=== PATIENT | male | born 1970 | race Caucasian/White ===

== ENCOUNTER 2020-08-16 10:05 | Outpatient (REF) | payer OTHER, SELFPAY | END 2020-08-16 10:06 | disposition home or self-care (01) | LOC: HO.LAB 10:05 | PROVIDERS: Visit Provider Internal Medicine | DX: Z20.822 Contact with and (suspected) exposure to COVID-19 (principal) | CPT/HCPCS: 36415; C9803; U0003; U0005 ==

== ENCOUNTER 2020-08-18 08:43 | Outpatient (REF) | payer OTHER, SELFPAY | END 2020-08-18 08:44 | disposition home or self-care (01) | LOC: HO.LAB 08:43 | PROVIDERS: Visit Provider Internal Medicine | DX: Z20.822 Contact with and (suspected) exposure to COVID-19 (principal) | CPT/HCPCS: 36415; C9803; U0003; U0005 ==

== ENCOUNTER 2022-07-28 09:00 | Inpatient (IN) | payer OTHER, SELFPAY ==
[2022-07-28] VITALS (7 sets, daily range): BP systolic 135–167; BP diastolic 65–89; PULSE 65–89; RESP 18–22; TEMP 36.2–37.2; O2SAT 96–100; BMI 32.6
--- NOTE | ~2022-07-28 | US_ITS ---
EXAMINATION: US SCROTUM CLINICAL INFORMATION: Right testicular pain. Rule out torsion.. COMPARISON: None TECHNIQUE: A sonogram of the scrotum was performed assessing noel-scale appearance and color Doppler flow. Spectral Doppler analysis of the arterial and venous flow were performed in the testes bilaterally. FINDINGS: RIGHT: Right testicle measures 5.0 x 2.4 x 3.2 cm, volume 19.4 mL. No focal testicular parenchymal lesions are visualized. Spectral Doppler analysis of the arterial and venous flow is normal in the right testis. Right epididymal head is normal in size. No right hydrocele or varicocele is seen. Right epididymal Doppler flow is normal. LEFT: Left testicle measures 4.8 x 2.4 x 2.9 cm, volume 17.2 mL. No focal testicular parenchymal lesions are visualized. Spectral Doppler analysis of the arterial and venous flow is normal in the left testis. Left epididymal head is normal in size. No left hydrocele or varicocele is seen. Left epididymal Doppler flow is normal. US/US scrotum doppler IMPRESSION: Unremarkable ultrasound scrotum and testes.
--- NOTE | ~2022-07-28 | US_ITS ---
EXAMINATION: US SCROTUM CLINICAL INFORMATION: Right testicular pain. Rule out torsion.. COMPARISON: None TECHNIQUE: A sonogram of the scrotum was performed assessing noel-scale appearance and color Doppler flow. Spectral Doppler analysis of the arterial and venous flow were performed in the testes bilaterally. FINDINGS: RIGHT: Right testicle measures 5.0 x 2.4 x 3.2 cm, volume 19.4 mL. No focal testicular parenchymal lesions are visualized. Spectral Doppler analysis of the arterial and venous flow is normal in the right testis. Right epididymal head is normal in size. No right hydrocele or varicocele is seen. Right epididymal Doppler flow is normal. LEFT: Left testicle measures 4.8 x 2.4 x 2.9 cm, volume 17.2 mL. No focal testicular parenchymal lesions are visualized. Spectral Doppler analysis of the arterial and venous flow is normal in the left testis. Left epididymal head is normal in size. No left hydrocele or varicocele is seen. Left epididymal Doppler flow is normal. US/US scrotum IMPRESSION: Unremarkable ultrasound scrotum and testes.
--- NOTE | ~2022-07-28 | FL_ITS ---
EXAMINATION: XR FLUOROSCOPY WITH IMAGES CLINICAL INFORMATION: Cystoscopy, ureteroscopy, laser, retro COMPARISON: CT 07/28/2022 TECHNIQUE: Fluoroscopy Supervised By: Dr. Sathish Corbin. Fluoroscopy Time: 20.9. Cumulative Dose: 8.14 mGy. Images: 4. FINDINGS: Cystoscope noted. Retrograde injection of contrast noted into the right ureter. A right ureteral stent is placed. FL/FL guidance in OR IMPRESSION: Fluoroscopic guidance for right-sided pyelogram and ureteral stent placement. Please refer to procedural report for further information.
--- NOTE | ~2022-07-28 | CT_ITS ---
EXAMINATION: CT ABDOMEN AND PELVIS WITHOUT CONTRAST CLINICAL INFORMATION: Right flank pain and right testicular pain COMPARISON: None TECHNIQUE: Multidetector volumetric imaging was performed from the superior aspect of the liver through the pubic symphysis. Sagittal and coronal reformatted images were obtained on the technologist's workstation. This CT examination was performed using dose optimization techniques as appropriate, variously including the following: *Automated exposure control *Adjustment of mA and/or kV according to patient size (this includes techniques or standardized protocols for targeted exams where dose is matched to indication/reason for exam; i.e. extremities or head) *Use of iterative reconstruction technique DLP: 836 mGy-cm FINDINGS: LUNG BASES: The visualized lung bases are unremarkable. LIVER, GALLBLADDER, AND BILIARY TREE: The liver is normal in size, shape, and attenuation. There are focal lobulated hypodense lesion left hepatic lobe measuring 2 cm and segment 4A measuring 1.4 cm. There are consistent with cysts. No additional lesions seen. There is no intrahepatic ductal dilatation. The gallbladder is unremarkable with no evidence of radiopaque gallstones, gallbladder wall thickening, or obvious pericholecystic inflammatory changes. PANCREAS: Unremarkable. SPLEEN: Unremarkable. ADRENAL GLANDS: Unremarkable. KIDNEYS AND URETERS: The kidneys are normal in size, shape, and attenuation. There is a 7 mm partially obstructive right distal ureteral calculi, best visualized on coronal image 77/6 no additional radiopaque calculi seen. There is no hydronephrosis. There is mild bilateral perinephric stranding. BLADDER: Unremarkable. GASTROINTESTINAL TRACT: There is diffuse colonic diverticulosis with scattered stool and gas but no distention or diverticulitis. The small bowel loops are normal caliber. Appendix is normal caliber. ABDOMINAL WALL: No significant hernia is appreciated. LYMPH NODES: Normal. VASCULAR: Unremarkable. PELVIC VISCERA: Unremarkable. OSSEOUS STRUCTURES: There is mild ventral spondylosis in lower lumbar spine. CT/CT abdomen pelvis wo IV con IMPRESSION: 1. 7 mm partially obstructive right distal ureteral calculi. There is no hydronephrosis. 2. Diffuse colonic diverticulosis without diverticulitis. Fleischner guidelines were followed.
--- NOTE | 2022-07-28 09:20 | ED_ITS ---
HPI - Abdominal Pain General Chief Complaint: Abdominal Pain Stated Complaint: GROIN AND BACK PAIN Time Seen by Provider: 07/28/22 09:16 Source: patient and EMS Mode of arrival: EMS Limitations: no limitations History of Present Illness HPI narrative: 52-year-old male came in by ambulance for evaluation of a right lower back pain and right testicular pain. About an hour ago patient woke up with right side back pain with radiation to the right testicle, pain has been severe and constant since 07:00, had this pain 2 days ago seen at walk-in clinic was given Flomax for enlarged prostate patient did not have pain until now, declined any dysuria, no blood in the urine, pain is associated with nausea and vomiting, patient is unable to urinate for the past 2 hours. No history of abdominal surgery, no history of kidney stones in the past. Related Data Allergies Allergy/AdvReac Type Severity Reaction Status Date / Time No Known Allergies Allergy Unverified 03/30/20 14:48 [No Known Allergies*] Review of Systems Review of Systems All other systems are reviewed and are negative Constitutional: Reports as per HPI and Reports no additional constitutional complaints Eyes: Reports as per HPI and Reports no additional eye complaints Reports system reviewed and no additional complaints, except as documented Cardiovascular: Reports as per HPI and Reports no additional cardiovascular complaints Respiratory: Reports as per HPI and Reports no additional respiratory complaints Gastrointestinal: Reports as per HPI and Reports no additional gastrointestinal complaints Genitourinary: Reports no additional female genitourinary complaints Musculoskeletal: Reports no additional musculoskeletal complaints Skin/Breast: Reports system reviewed and no additional complaints, except as docu Psychiatric: Reports no additional psychiatric complaints Endocrine: Reports no additional endocrine complaints Hematologic/Lymphatic: Reports no additional hematologic/lymphatic complaints Allergic/Immunologic: Reports no additional allergic/immunologic complaints Reports system reviewed and no additional complaints, except as documented and Reports Abnormal speech present [facility] Social History Social History Smoked in Last 30 Days: No Use of substances other than those prescribed or required for medical reasons: No Advance Directives: No Advance Directives Information Provided: Yes Physical Exam ED Vital Signs: Vital Signs - 24 hr 07/28/22 09:18 07/28/22 09:29 07/28/22 10:47 Temperature 98.4 F Pulse Rate 69 77 84 Respiratory Rate 20 20 22 H Blood Pressure 167/81 H 156/88 H Pulse Oximetry 99 100 99 Oxygen Delivery Method Room Air Room Air Room Air BMI result Body Mass Index 32.6 Vital signs have been reviewed as appeared to be correct. Blood pressure normal. Heart rate normal. Respiration rate normal. Temperature normal. Oxygen saturation normal. Appearance: Alert. Oriented X3. No acute distress. Head: Normal external exam. Normocephalic. Atraumatic. No Ennis signs noted. No raccoon eyes noted Eyes: PERRLA. EOMI. Conjunctiva and sclera normal. Eyelids normal. ENT: TM's Normal. Pharynx normal. Uvula midline. Moist mucous membranes. No trismus noted. No drooling noted. No muffled voice noted. Neck: Normal inspection. Neck supple. FROM. No adenopathy. Thyroid Normal. No meningeal signs. No neck mass noted. CVS: Normal heart rate and rhythm. Heart sound normal. No murmurs noted. Pulses normal throughout. Respiratory: No respiratory distress. Painless inspiration. Breath sounds normal. No wheezes/rales/rhonchi noted. Chest nontender. No accessory muscle usage noted or decreased air movement noted. Abdomen: Soft and nontender. Bowel sounds normal in all 4 quadrants. No distention noted. No organomegaly noted. No visible injury noted. Back: No CVA tenderness. Full range of motion noted. Skin: Skin warm and dry. Normal skin color. Normal skin turgor. No rashes/lesions/lacerations noted. Extremities: No lower extremity edema. Extremities exhibit normal range of motion. Extremities nontender. Neuro: Oriented X 3. Cranial nerve exam: II-XII are grossly intact No motor deficit. No sensory deficit. Reflexes normal. Course Course Course Narrative: 52-year-old male came in with right flank pain, has 7 mm stone in the distal ureter, patient require multiple doses of morphine/Dilaudid to control his pain, pain feels better, case discussed with Dr. Corbin who will admit for further possible surgical intervention. Medical Decision Making Differential Diagnosis Differential Diagnoses: The differential diagnosis associated with the presentation includes (Pancreatitis, renal colic, obstructing ureteric stone, appendicitis, testicular torsion, epididymitis.) Lab Data MDM Lab Attestation statement: I reviewed the patient's lab results. 07/28/22 09:23 07/28/22 09:23 Labs: Lab Results 07/28/22 07/28/22 07/28/22 Range/Units 09: 09: 10:48 WBC 11.0 H (4.8-10.8) X10*3/uL RBC 5.78 (4.60-5.80) X10*6/uL Hgb 15.6 (14.0-18.0) g/dl Hct 46.2 (42.0-52.0) % MCV 79.9 L (80.0-98.0) fL MCH 27.0 (27.0-33.0) pg MCHC 33.8 (31.0-36.0) g/dl RDW 12.6 (11.0-16.0) % Plt Count 250 (160-400) X10*3/uL MPV 9.7 (9.4-12.4) fL Immature Gran % (Auto) 0.6 H (0.0-0.4) % Neut % (Auto) 74.7 H (45-73) % Lymph % (Auto) 18.2 L (20-40) % Casey % (Auto) 6.1 (2-11) % Eos % (Auto) 0.0 (0-4) % Baso % (Auto) 0.4 (0-2) % Lymph # (Auto) 2.0 (1.2-4.9) X10*3/uL Casey # (Auto) 0.7 (0.1-1.2) X10*3/uL Eos # (Auto) 0.0 (0.0-0.4) X10*3/uL Baso # (Auto) 0.0 (0.0-0.2) X10*3/uL Abs Immat Gran (auto) 0.07 H (0.00-0.03) X10*3/uL Absolute Neuts (auto) 8.2 (2.0-8.3) x10*3/uL Absolute Nucleated RBC 0.000 (0.0-0.012) X10*3/uL Nucleated RBC % (auto) 0.0 (0.0-0.2) /100WBC Sodium 140 (135-145) mmol/L Potassium 3.8 (3.3-5.1) mmol/L Chloride 108 (96-108) mmol/L Carbon Dioxide 21 L (22-29) mmol/L Anion Gap 15 (12-20) BUN 13 (9-16) mg/dL Creatinine 1.06 (0.5-1.4) mg/dL Estim Creat Clear Calc 98.8 Estimated GFR > 60 Random Glucose 194 H (60-115) mg/dL Calcium 9.4 (8.4-10.2) mg/dL Total Bilirubin 0.6 (0.0-1.0) mg/dL Direct Bilirubin 0.2 (0.0-0.5) mg/dL AST 42 H (5-37) U/L ALT 51 H (0-40) U/L Alkaline Phosphatase 97 (39-117) U/L Total Protein 7.6 (6.5-8.0) g/dL Albumin 4.6 (3.5-5.0) g/dL Lipase 15 (8-78) U/L Urine Color Yellow Urine Appearance Clear Urine pH 5.0 (5.0-9.0) Ur Specific Amity 1.025 (1.005-1.025) Urine Protein 30 (1+) H (Neg-Trace) mg/dL Urine Glucose (UA) 500 H (Negative) mg/dL Urine Ketones Negative (Negative) mg/dL Urine Blood Large (3+) H (Negative) Urine Nitrite Negative (Negative) Ur Leukocyte Esterase Negative (Negative) Urine RBC >20 H (0-2) /HPF Urine WBC 0-5 (0-5) /HPF Ur Squamous Epith Cells 0-2 (0-2) /HPF Urine Bacteria None Seen (None Seen) Hyaline Casts 0-2 (0-2) /LPF Independent Interpretation I performed an independent interpretation of an: Ultrasound (Scrotal ultrasound: Unremarkable ultrasound scrotum and testes.) and CT Scan (7 mm partially obstructive right distal ureteric stone.) Radiology Impression Discussion of test interpretation with radiology: I have reviewed the radiologist's reading. Medications Administered Discontinued Medications Generic Name Dose Route Start Last Admin Trade Name Freq PRN Reason Stop Dose Admin Hydromorphone HCl 2 mg 07/28/22 10:36 07/28/22 10:46 Hydromorphone Hcl 2 Mg/Ml Vial IVPUSH 07/28/22 10:37 2 mg ONCE ONE Administration Protocol Sodium Chloride 1,000 mls @ 999 mls/hr 07/28/22 09:16 07/28/22 10:47 Ns IV 07/28/22 10:16 Infused .Q1H1M ONE Infusion Ketorolac Tromethamine 30 mg 07/28/22 09:16 07/28/22 09:28 Ketorolac Tromethamine 30 Mg/Ml Vial IVPUSH 07/28/22 09:17 30 mg ONCE ONE Administration Morphine Sulfate 4 mg 07/28/22 09:16 07/28/22 09:28 Morphine Sulfate 4 Mg/Ml Cartridge IVPUSH 07/28/22 09:17 4 mg ONCE ONE Administration Protocol Ondansetron HCl 4 mg 07/28/22 09:16 07/28/22 09:28 Ondansetron Hcl 4 Mg/2 Ml Vial IVPUSH 07/28/22 09:17 4 mg ONCE ONE Administration Discharge Plan Discharge Clinical Impression: Calculus of kidney, Renal colic Patient Disposition: Admitted As Inpatient
[2022-07-28 09:28] LABS: MANUAL DIFF FLAG NO
[2022-07-28] MEDS: ondansetron HCL 4 MG/2 ML VIAL IVPUSH (09:28)
[2022-07-28] MEDS: 0.9 % Sodium Chloride 1,000 ML 999 ML IV (09:28)
[2022-07-28] MEDS: Morphine Sulfate 4 MG/ML CARTRIDGE IVPUSH ×2 (09:28→17:25)
[2022-07-28] MEDS: Ketorolac Tromethamine 30 MG/ML VIAL IVPUSH (09:28)
[2022-07-28 09:29] LABS: Basophils Percent Auto 0.4 % (0-2); Hematocrit 46.2 % (42.0-52.0); Hemoglobin 15.6 g/dl (14.0-18.0); Imm Gran Abs Auto 0.07 X10*3/uL (0.00-0.03); Imm Gran Pct Auto 0.6 % (0.0-0.4); Lymphocytes Percent Auto 18.2 % (20-40); Mean Corpuscular HGB Conc 33.8 g/dl (31.0-36.0); Mean Corpuscular Volume 79.9 fL (80.0-98.0); Mean Platelet Volume 9.7 fL (9.4-12.4); Monocytes Absolute Auto 0.7 X10*3/uL (0.1-1.2); Monocytes Percent Auto 6.1 % (2-11); Neutrophils Absolute Auto 8.2 x10*3/uL (2.0-8.3); Neutrophils Percent Auto 74.7 % (45-73); Platelet Count 250 X10*3/uL (160-400); Red Blood Count 5.78 X10*6/uL (4.60-5.80); Red Cell Distribution Width 12.6 % (11.0-16.0)
--- NOTE | 2022-07-28 09:31 | PC.NURSE ---
Pt reporting right low back and right testicular white since approx 0730 this AM. Vomiting on arrival. Restless, intermittently, pain sharp and wavelike. Seen recently for similar sx and given Tamulosin. IV established and medicated as charted Fluids infusing, awaits CT scan
[2022-07-28 10:17] LABS: Alanine Aminotransferase 51 U/L (0-40); Albumin Level 4.6 g/dL (3.5-5.0); Alkaline Phosphatase 97 U/L (39-117); Anion Gap 15 (12-20); Aspartate Amino Transferase 42 U/L (5-37); Bilirubin Direct 0.2 mg/dL (0.0-0.5); Bilirubin Total 0.6 mg/dL (0.0-1.0); Blood Urea Nitrogen 13 mg/dL (9-16); Calcium 9.4 mg/dL (8.4-10.2); Carbon Dioxide 21 mmol/L (22-29); Chloride 108 mmol/L (96-108); Creatinine Clr Calc Pharmacy 98.8; Estimated Glomerular Filt Rate > 60; Glucose Random 194 mg/dL (60-115); Lipase 15 U/L (8-78); Potassium 3.8 mmol/L (3.3-5.1); Sodium 140 mmol/L (135-145); Total Protein 7.6 g/dL (6.5-8.0)
[2022-07-28] MEDS: HYDROmorphone HCl 2 MG/ML VIAL IVPUSH (10:46)
[2022-07-28 10:55] LABS: Appearance Urine Clear; Color Urine Yellow; Glucose Urine UA 500 mg/dL (Negative); Leukocyte Esterase Urine Negative (Negative); Nitrite Urine Negative (Negative); Specific Gravity - Urine 1.025 (1.005-1.025); UMIC TRIGGER UACC YES; Urine Blood Large (3+) (Negative); Urine Ketones Negative (Negative); Urine Protein 30 (1+) mg/dL (Neg-Trace)
[2022-07-28 11:00] LABS: Bacteria Urine None Seen (None Seen); Hyaline Casts Urine 0-2 /LPF (0-2); RBC Urine >20 /HPF (0-2); Squamous Epithelial Cell Urine 0-2 /HPF (0-2); WBC Urine 0-5 /HPF (0-5)
--- NOTE | 2022-07-28 12:05 | PHA.MEDREC ---
Pharmacy Consult ? Medication Reconciliation Pharmacy has completed the medication reconciliation. Spoke to patient.
--- NOTE | 2022-07-28 13:27 | PC.NURSE ---
Pt restful s/p Dilaudid, denies pain at this time. Voiding. Awaiting admit orders from Urology
[2022-07-28 13:51] LABS: COVID-19 Test Negative (Negative); IDNOW Serial# 16C4AD1C
--- NOTE | 2022-07-28 14:58 | PC.NURSE ---
report received from JOAN Hoffman Pt resting on stretcher, states his pain is on the rise again, currently 12/21. Awaiting admit order from Dr. Raymundo along with medication order
[2022-07-28] MEDS: Sodium Chloride 0.45 % 1,000 ML 100 ML IVCONT (15:30)
[2022-07-28] MEDS: Ketorolac Tromethamine 15 MG/ML VIAL IVPUSH (15:31)
[2022-07-28] MEDS: 0.9 % Sodium Chloride Flush 3 ML SYRINGE IVFLUSH (15:31)
--- NOTE | 2022-07-28 15:50 | PC.NURSE ---
pt provided with food and beverages, Pt regular diet until midnight
[2022-07-28] MEDS: traMADoL HCL 50 MG TABLET PO ×2 (16:33→23:40)
--- NOTE | 2022-07-28 16:37 | PC.NURSE ---
pt verbalized to this RN that pain medication was not effective and had no impact on his pain. Pt given tramadol per MAR, Dr. Raymundo was also at bedside who said he will be putting in new order for morphine
[2022-07-28] MEDS: Acetaminophen 325 MG TABLET 975 MG PO (20:38)
[2022-07-29] VITALS (11 sets, daily range): BP systolic 125–169; BP diastolic 76–94; PULSE 64–79; RESP 15–18; TEMP 36.2–37.9; O2SAT 95–98
[2022-07-29] MEDS: Sodium Chloride 0.45 % 1,000 ML 100 ML IVCONT ×2 (00:36→10:41)
[2022-07-29] MEDS: Ketorolac Tromethamine 15 MG/ML VIAL IVPUSH ×2 (03:21→10:54)
[2022-07-29] MEDS: Acetaminophen 325 MG TABLET 975 MG PO ×2 (08:00→15:25)
--- NOTE | 2022-07-29 16:28 | MHC.CM.PN ---
PT REPORTS HE LIVES ALONE WITH FAMILY OCCUPYING THE OTHER APARTMENTS IN THE MULTIFAMILY HOME HE REPORTS HE IS INDEPENDENT WITH CARE, USES NO DME AND NO SERVICES PT GOES TO [facility] IN [place] FOR PCP, DOES NOT KNOW THE NAME PT DOES NOT HAVE A HCP, DECLINES TO COMPLETE ONE HE IS COVID VAX, NO BOOSTERS CURRENT DC PLAN IS HOME WITH NO SERVICE PT WILL ARRANGE TRANSPORT
[2022-07-29] MEDS: levoFLOXacin/D5W 500 MG/100 ML PIGGYBACK 100 MG IV (17:52)
--- NOTE | 2022-07-29 17:53 | PC.NURSE ---
levaquin iv given at this time as per md. Corbin re-temp
--- NOTE | 2022-07-29 18:20 | MHC.SHP ---
Pre-Procedural Eval Section A Date of Service: 07/29/22 The patient is an INPATIENT: Yes Changes since office visit: No Cold of Flu in the past 2 weeks, No New Medical Problems, No Changes in Medication and No Patient answered all questions The History & Physical has been completed within 30 days and I have reviewed it.: Yes Section B Chief Complaint: Distal ureteric stone Details of Present Illness: distal right ureteric stone Relevant Family History (Specify if Yes): No Relevant Social History: None Present Medications: see Short Stay Collaborative assessment Medical History: No relevant PMH History of Previous Operations: No relevant previous surgery Allergies: Allergies Allergy/AdvReac Type Severity Reaction Status Date / Time No Known Allergies Allergy Unverified 03/30/20 14:48 [No Known Allergies*] Review of Systems Sugical H&P ROS: Negative: Constitution, Cardiovascular, Respiratory, Neurological, Psychiatric, Hem-Onc, Allergic/Immunologic, Gastrointestinal, Genitourinary, Musculoskeletal, Integumentary, Endocrine and Eyes/Ears/Nose/Throat Exam Surgical H&P Exam: Normal: HEENT, Normal: Heart, Normal: Lungs, Normal: Extremities, Normal: Abdomen, Normal: Skin and Normal: Neurological Plan Diagnosis/Plan: Unchanged ( cystoscopy, right retrograde, right rigid ureteroscopy with laser lithotripsy and stent placement) I have reviewed the history and physical and performed a pertinent physical examination on my patient. No changes have occurred unless specified. Time Spent With Patient Time: Total time managing care of this patient today ____ minutes.
--- NOTE | 2022-07-29 18:21 | P.HPGS_ITS ---
History of Present Illness History of Present Illness Date of Service: 07/28/22 Chief complaint: Distal ureteric stone Narrative: Hema Levin is a 52 year old male Admitted to hospital with distal right ureteric stone. No prior history of stones Workup on Friday morning with right-sided back pain,pain on right side he felt radiating to his testicle. Pain was constant and severe starting at 07:00 o'clock. Previously had occurred 2 days prior and he was seen at a walk-in clinic in [facility] for suspected prostatitis. No dysuria, hematuria. CT scan shows - There is a 7 mm partially obstructive right distal ureteral calculi, best visualized on coronal image 77/6 no additional radiopaque calculi seen. There is no hydronephrosis. There is mild bilateral perinephric stranding. Plan on cystoscopy, right retrograde, right ureteroscopy with laser lithotripsy and stent placement Is going to [facility] on Review of Systems Constitutional: Constitutional: Reports as per HPI and Reports no additional constitutional complaints Cardiovascular: Cardiovascular: Reports as per HPI and Reports no additional cardiovascular complaints Respiratory: Respiratory: Reports as per HPI and Reports no additional respiratory complaints Gastrointestinal: Gastrointestinal: Reports as per HPI and Reports no additional gastrointestinal complaints Genitourinary: Genitourinary: Reports as per HPI Musculoskeletal: Musculoskeletal: Reports no additional musculoskeletal complaints and Reports as per HPI Neurologic: Reports system reviewed and no additional complaints, except as documented and Reports as per HPI [facility] Social History Social History Household Members: None Housing: House Do you presently have visiting nurse or other home services: No Patient Tobacco Use Status: Never used Tobacco Smoked in Last 30 Days: No Use of substances other than those prescribed or required for medical reasons: No Currently Displaying Signs/Symptoms of Drug Intoxication Withdrawal: No Have you been hit, kicked, punched, or otherwise hurt by someone within the past year? If so, by whom?: No Do you feel safe in your current relationship?: Yes Is there a partner from a previous relationship who is making you feel unsafe now?: No Are you made to feel afraid or neglected: No Are you DNR?: No Advance Directives: No Advance Directives Information Provided: Yes Do you have thoughts of harming others: None Do you have a plan to hurt others: No Plan Recently lost weight without trying: No Nutrition Risks: No Nutritional Risk Poor oral hygiene: No service: No Current occupational status: employed Meds Allergies Allergy/AdvReac Type Severity Reaction Status Date / Time No Known Allergies Allergy Unverified 03/30/20 14:48 [No Known Allergies*] Active Medications: Current Medications Acetaminophen (Acetaminophen 325 Mg Tablet) 975 mg PO TID [facility] Last Admin: 07/29/22 15:25 Dose: 975 mg Sodium Chloride (Sodium Chloride 0.45 %) 1,000 mls @ 100 mls/hr IVCONT .Q10H [facility] Last Admin: 07/29/22 10:41 Dose: 100 mls/hr Levofloxacin (Levaquin) 500 mg in 100 mls @ 100 mls/hr IV PREOP ONE Stop: 07/29/22 18:35 Last Admin: 07/29/22 17:52 Dose: 100 mls/hr Ketorolac Tromethamine (Ketorolac Tromethamine 15 Mg/Ml Vial) 15 mg IVPUSH Q6H PRN PRN Reason: Pain, Moderate (Pain Scale 4-6 Last Admin: 07/29/22 10:54 Dose: 15 mg Sodium Chloride (0.9 % Sodium Chloride Flush 3 Ml Syringe) 3 ml IVFLUSH QSHIFT [facility] Last Admin: 07/29/22 15:19 Dose: Not Given Tramadol HCl (Tramadol Hcl 50 Mg Tablet) 50 mg PO Q6H PRN PRN Reason: Pain, Moderate (Pain Scale 4-6 Last Admin: 07/28/22 23:40 Dose: 50 mg Home Medications Medication Instructions Recorded Confirmed Last Taken Type albuterol sulfate 90 mcg/actuation 2 puff inhalation QID PRN 07/28/22 07/28/22 07/27/22 09:00 History aerosol inhaler Shortness Of Breath Or Wheezing ascorbic acid (vitamin C) 500 mg 500 mg PO DAILY 07/28/22 07/28/22 07/27/22 09:00 History tablet (Vitamin C) aspirin 81 mg tablet,delayed 81 mg PO DAILY 07/28/22 07/28/22 07/27/22 09:00 History release atorvastatin 20 mg tablet 1 tab PO BEDTIME 07/28/22 07/28/22 07/26/22 History benzonatate 200 mg capsule 1 cap PO TID PRN Cough 07/28/22 07/28/22 Unknown History diclofenac sodium 1 % topical gel 4 g topical BID PRN Inflammation 07/28/22 07/28/22 Unknown History fluticasone propionate 110 1 puff inhalation BID PRN 07/28/22 07/28/22 Unknown History mcg/actuation HFA aerosol inhaler Shortness Of Breath Or Wheezing (Flovent HFA) hydrochlorothiazide 25 mg tablet 1 tab PO DAILY 07/28/22 07/28/22 07/27/22 09:00 History ipratropium bromide 42 mcg (0.06 2 spray intranasal TID PRN Allergy 07/28/22 07/28/22 Unknown History %) nasal spray Symptoms lisinopril 10 mg tablet 1 tab PO BEDTIME 07/28/22 07/28/22 07/26/22 History multivitamin 1 tab PO DAILY 07/28/22 07/28/22 07/27/22 09:00 History tamsulosin 0.4 mg capsule 1 cap PO BEDTIME 07/28/22 07/28/22 07/26/22 History Physical Exam Vital Signs: Vital Signs: Last Vital Signs Temp 100.3 F 07/29/22 17:30 Pulse 79 07/29/22 17:30 Resp 16 07/29/22 17:30 BP 152/88 H 07/29/22 17:30 Pulse Ox 96 07/29/22 17:30 O2 Del Method 07/29/22 17:30 BMI result Body Mass Index 32.6 Const: General: cooperative, healthy appearing, comfortable and no acute distress Orientation/consciousness: patient oriented x3 HEENT: Face and sinus: Yes normal facial exam Mouth: moist mucous membranes Neck: Neck: Yes normal visual inspection, Yes full ROM and Yes trachea midline Chest: Chest palpation & inspection: normal inspection of the chest Resp: Effort & Inspection: normal respiratory effort, able to speak in complete sentences and no respiratory distress GI: Inspection: Yes normal to inspection Back/Spine/Pelvis: Cervical Spine: normal cervical lordosis Thoracic/Lumbar Spine: thoracic and lumbar spine normal to inspection Skin: General skin exam: no rashes or lesions noted Neuro: General: patient oriented x3, tone normal and moves all extremities Extrem: General: Yes normal to inspection and Yes capillary refill normal Results Results Labs: Urine 07/28/22 Range/Units 10:48 Urine Color Yellow Urine Appearance Clear Urine pH 5.0 (5.0-9.0) Ur Specific [place] 1.025 (1.005-1.025) Urine Protein 30 (1+) H (Neg-Trace) mg/dL Urine Glucose (UA) 500 H (Negative) mg/dL Assessment and Plan (1) Calculus of kidney: Status: Acute Plan Ureteroscopy We discussed the nature of the decision and reasonable alternatives for performing ureteroscopy. Options such as medical therapy were discussed. Interventions include chemical dissolution, ESWL, ureteroscopy with laser lithotripsy and stent placement, PCNL. The relative uncertainties and benefits related to each alternate procedure were adequately discussed. General surgical risks including, but not limited to - pain, bleeding, infection, myocardial infarction, pulmonary embolus, deep vein thrombosis and cerebrovascular accident which may result in further hospita lization were discussed. Full disclosure of the procedure as well as all major risks, benefits and complications were discussed including but not limited to damage to the urethra, bladder and kidney infection, damage to the ureter, stent migration or malposition, scarring to the renal pelvis, remnant stone fragments, subsequent stone passage with need for secondary procedures. The overall secondary procedure rate is approximately 10-15%. The overall clearance rate is approximately 90-95%. Success of the procedure in the short-term does not necessarily guarantee that long-term success will be maintained. Suitable follow up will need to be maintained. The patient showed understanding of discussion and wishes to proceed with - cystoscopy, retrograde, ureteroscopy, possible lithotripsy/stone basketing and stent on the right side Time Spent With Patient Time: Total time managing care of this patient today ____ minutes. Quality Stroke Does the patient have a stroke diagnosis?: No VTE Prior VTE?: No VTE Risk Level:: Surgical - low VTE Device Contraindication: Treatment Not Indicated VTE Drug Contraindication: Treatment Not Indicated Procedures Date of Service Date of Service: 07/28/22
--- NOTE | 2022-07-29 18:39 | HO.ANESPROP2 ---
HPI - Anesthesia Eval Consult details Narrative: Right ureter stone PMFSH Active Problems Active Problems: All Active Problems (Updated 07/28/22 @ 11:14 by Lynn Aguilar MD) Calculus of kidney (Acute) Renal colic (Acute) Past Medical History Medical History (Updated 07/29/22 @ 18:42 by Sathish Arboleda MD) Asthma Hypercholesteremia Hypertension Family History Family history of problems with anesthesia: No Surgical History History of Problems with Anesthesia: No Social History Social History Household Members: None Housing: House Do you presently have visiting nurse or other home services: No Patient Tobacco Use Status: Never used Tobacco Smoked in Last 30 Days: No Use of substances other than those prescribed or required for medical reasons: No Currently Displaying Signs/Symptoms of Drug Intoxication Withdrawal: No Have you been hit, kicked, punched, or otherwise hurt by someone within the past year? If so, by whom?: No Do you feel safe in your current relationship?: Yes Is there a partner from a previous relationship who is making you feel unsafe now?: No Are you made to feel afraid or neglected: No Are you DNR?: No Advance Directives: No Advance Directives Information Provided: Yes Do you have thoughts of harming others: None Do you have a plan to hurt others: No Plan Recently lost weight without trying: No Nutrition Risks: No Nutritional Risk Poor oral hygiene: No service: No Current occupational status: employed Meds Allergies Allergy/AdvReac Type Severity Reaction Status Date / Time No Known Allergies Allergy Unverified 03/30/20 14:48 [No Known Allergies*] Active Medications: Current Medications Acetaminophen (Acetaminophen 325 Mg Tablet) 975 mg PO TID [facility] Last Admin: 07/29/22 15:25 Dose: 975 mg Sodium Chloride (Sodium Chloride 0.45 %) 1,000 mls @ 100 mls/hr IVCONT .Q10H [facility] Last Admin: 07/29/22 10:41 Dose: 100 mls/hr Ketorolac Tromethamine (Ketorolac Tromethamine 15 Mg/Ml Vial) 15 mg IVPUSH Q6H PRN PRN Reason: Pain, Moderate (Pain Scale 4-6 Last Admin: 07/29/22 10:54 Dose: 15 mg Sodium Chloride (0.9 % Sodium Chloride Flush 3 Ml Syringe) 3 ml IVFLUSH QSHIFT [facility] Last Admin: 07/29/22 15:19 Dose: Not Given Tramadol HCl (Tramadol Hcl 50 Mg Tablet) 50 mg PO Q6H PRN PRN Reason: Pain, Moderate (Pain Scale 4-6 Last Admin: 07/28/22 23:40 Dose: 50 mg Home Medications Medication Instructions Recorded Confirmed Last Taken Type albuterol sulfate 90 mcg/actuation 2 puff inhalation QID PRN 07/28/22 07/28/22 07/27/22 09:00 History aerosol inhaler Shortness Of Breath Or Wheezing ascorbic acid (vitamin C) 500 mg 500 mg PO DAILY 07/28/22 07/28/22 07/27/22 09:00 History tablet (Vitamin C) aspirin 81 mg tablet,delayed 81 mg PO DAILY 07/28/22 07/28/22 07/27/22 09:00 History release atorvastatin 20 mg tablet 1 tab PO BEDTIME 07/28/22 07/28/22 07/26/22 History benzonatate 200 mg capsule 1 cap PO TID PRN Cough 07/28/22 07/28/22 Unknown History diclofenac sodium 1 % topical gel 4 g topical BID PRN Inflammation 07/28/22 07/28/22 Unknown History fluticasone propionate 110 1 puff inhalation BID PRN 07/28/22 07/28/22 Unknown History mcg/actuation HFA aerosol inhaler Shortness Of Breath Or Wheezing (Flovent HFA) hydrochlorothiazide 25 mg tablet 1 tab PO DAILY 07/28/22 07/28/22 07/27/22 09:00 History ipratropium bromide 42 mcg (0.06 2 spray intranasal TID PRN Allergy 07/28/22 07/28/22 Unknown History %) nasal spray Symptoms lisinopril 10 mg tablet 1 tab PO BEDTIME 07/28/22 07/28/22 07/26/22 History multivitamin 1 tab PO DAILY 07/28/22 07/28/22 07/27/22 09:00 History tamsulosin 0.4 mg capsule 1 cap PO BEDTIME 07/28/22 07/28/22 07/26/22 History Exam Exam Date and Time: July 29, [id number] Height,Weight and Vital Signs: Height 5 ft 11 in Weight 106.3 kg Last Vital Signs Temp 100.3 F 07/29/22 17:30 Pulse 79 07/29/22 17:30 Resp 16 07/29/22 17:30 BP 152/88 H 07/29/22 17:30 Pulse Ox 96 07/29/22 17:30 O2 Del Method 07/29/22 17:30 Pertinent Lab Results Pertinent Lab Results: Laboratory Tests 07/28/22 07/28/22 07/28/22 09:23 09:23 10:48 WBC 11.0 H RBC 5.78 Hgb 15.6 Hct 46.2 MCV 79.9 L MCH 27.0 MCHC 33.8 RDW 12.6 Plt Count 250 MPV 9.7 Immature Gran % (Auto) 0.6 H Neut % (Auto) 74.7 H Lymph % (Auto) 18.2 L [place] % (Auto) 6.1 Eos % (Auto) 0.0 Baso % (Auto) 0.4 Lymph # (Auto) 2.0 [place] # (Auto) 0.7 Eos # (Auto) 0.0 Baso # (Auto) 0.0 Abs Immat Gran (auto) 0.07 H Absolute Neuts (auto) 8.2 Absolute Nucleated RBC 0.000 Nucleated RBC % (auto) 0.0 Sodium 140 Potassium 3.8 Chloride 108 Carbon Dioxide 21 L Anion Gap 15 BUN 13 Creatinine 1.06 Estim Creat Clear Calc 98.8 Estimated GFR > 60 Random Glucose 194 H Calcium 9.4 Total Bilirubin 0.6 Direct Bilirubin 0.2 AST 42 H ALT 51 H Alkaline Phosphatase 97 Total Protein 7.6 Albumin 4.6 Lipase 15 Urine Color Yellow Urine Appearance Clear Urine pH 5.0 Ur Specific [place] 1.025 Urine Protein 30 (1+) H Urine Glucose (UA) 500 H Urine Ketones Negative Urine Blood Large (3+) H Urine Nitrite Negative Ur Leukocyte Esterase Negative Urine RBC >20 H Urine WBC 0-5 Ur Squamous Epith Cells 0-2 Urine Bacteria None Seen Hyaline Casts 0-2 COVID-19 ([facility]) COVID-19 Clin Com 07/28/22 13:22 WBC RBC Hgb Hct MCV MCH MCHC RDW Plt Count MPV Immature Gran % (Auto) Neut % (Auto) Lymph % (Auto) [place] % (Auto) Eos % (Auto) Baso % (Auto) Lymph # (Auto) [place] # (Auto) Eos # (Auto) Baso # (Auto) Abs Immat Gran (auto) Absolute Neuts (auto) Absolute Nucleated RBC Nucleated RBC % (auto) Sodium Potassium Chloride Carbon Dioxide Anion Gap BUN Creatinine Estim Creat Clear Calc Estimated GFR Random Glucose Calcium Total Bilirubin Direct Bilirubin AST ALT Alkaline Phosphatase Total Protein Albumin Lipase Urine Color Urine Appearance Urine pH Ur Specific [place] Urine Protein Urine Glucose (UA) Urine Ketones Urine Blood Urine Nitrite Ur Leukocyte Esterase Urine RBC Urine WBC Ur Squamous Epith Cells Urine Bacteria Hyaline Casts COVID-19 ([facility]) Negative COVID-19 Clin Com See Note Airway Mallampati Class: II TM Dist: >3cm Neck ROM: Full Loose/Missing/Broken Teeth: No Heart: RRR Lungs: CTA Assessment and Plan Assessment Anesthesia Assessment: Anesthesia Plan Discussed and Chart Reviewed Final Anesthetic Review Family History of Problems with Anesthesia: No History of Problems with Anesthesia: No NPO: Yes ASA Class: II Final Preanesthetic Review: No Changes in Pt Med Stat, Meds/Allgs Chart Reviewed, Consent Obtained/Reviewed and Anes Risks/Benef Reviewed Patient Risk: Intermediate Procedure Risk: Low Anesthetic Plan Anesthetic Plan: GA Disposition: Standard PACU
--- NOTE | 2022-07-29 19:21 | P.OP_ITS ---
Operative Note Operative Note Date of Service: 07/29/22 Narrative: PreOperative Diagnosis: distal right ureteric stone Post Operative Diagnosis: distal right ureteric stone Procedure: - cystoscopy, right retrograde - right dilatation of ureteric orifice under fluoroscopy - right ureteroscopy, laser lithotripsy, stone basketing - right stent placement Surgeon: Dr Sathish Corbin Anesthesia: General Indications for procedure: distal right ureteric stone. Presentation to emergency room with 2 day history of pain in radiation to scrotum. CT scan 6 mm distal right ureteric stone Procedure: After informed consent was verified patient was brought to the operating placed in supine position. Anesthesia was administered per protocol. Patient was placed in modified dorsal lithotomy position and prepped and draped in a sterile fashion. Safety pause time-out and side of surgery confirmed. Antibiotics confirmed. A 22 Italian cystoscope was inserted per urethra. Bladder was normal in its entirety. Both ureteric orifices were in normal position. The right ureteric orifice was cannulated and a retrograde examination was performed. small filling defects seen in distal portion right ureter . A Sensor guidewire was placed up to the level of the renal pelvis under fluoroscopy. The rigid cystoscope was removed. A Annia dilator was placed over the Sensor guidewire and used to dilate the ureteric orifice under fluoroscopy. The dilator was removed. The semi rigid ureteral scope was placed alongside the Sensor guidewire. The stone was encounteredin the ureter. Using a 365 micron holmium laser fiber the stone was broken into small pieces. Using a sure catch basket these pieces were removed and will be sent for analysis. The rigid ureteral scope was removed. The cystoscope was backloaded over the Sensor guidewire and placed into the bladder. A 6 Italian by 30 cm double-J stent was placed into the renal pelvis and bladder under a combination of fluoroscopy and direct visualization. The bladder was emptied. The patient tolerated the procedure well and was extubated in the operating room, and transferred in stable condition to the recovery area. Pathology: Stones Drains: stent as above
--- NOTE | 2022-07-29 19:32 | PM.DS ---
DS: Providers Provider Date of Service: 07/29/22 Date of admission: 07/28/22 15:17 Primary care physician: Unknown Physician DS: Diagnosis Discharge Diagnosis (1) Calculus of kidney: Status: Acute DS: Summary Hospital Course Hospital Course: Hema was admitted to hospital with right-sided flank pain radiating to groin. Diagnosed with 6 mm distal right ureteric stone. Underwent stone Procedure 24 hours after admission with ureteroscopy, laser lithotripsy and stent placement. Status at Discharge Functional status at discharge: independent ambulation Overall status at discharge: patient is back to baseline Time Spent with Patient Time attestation: Total time managing care of this patient today ____ minutes. Discharge coordination time: Less than 30 minutes Quality: Safe Use of Opioids Does Pt have an Active Cancer Diagnosis on the Problem List?: No Quality: Stroke Does the patient have a stroke diagnosis?: No Physical Exam Vital Signs: Vital Signs: Last Vital Signs Temp 100.3 F 07/29/22 17:30 Pulse 79 07/29/22 17:30 Resp 16 07/29/22 17:30 BP 152/88 H 07/29/22 17:30 Pulse Ox 96 07/29/22 17:30 O2 Del Method 07/29/22 17:30 BMI result Body Mass Index 32.6 Const: General: cooperative, healthy appearing, comfortable and no acute distress Orientation/consciousness: patient oriented x3 HEENT: Face and sinus: Yes normal facial exam Mouth: moist mucous membranes Neck: Neck: Yes normal visual inspection, Yes full ROM and Yes trachea midline Chest: Chest palpation & inspection: normal inspection of the chest Resp: Effort & Inspection: normal respiratory effort, able to speak in complete sentences and no respiratory distress GI: Inspection: Yes normal to inspection Back/Spine/Pelvis: Cervical Spine: normal cervical lordosis Thoracic/Lumbar Spine: thoracic and lumbar spine normal to inspection Skin: General skin exam: no rashes or lesions noted Neuro: General: patient oriented x3, tone normal and moves all extremities Extrem: General: Yes normal to inspection and Yes capillary refill normal DS: Data Data Completed and Pending Completed studies during hospitalization [Text1]: creatinine 1.06, WBC [address] scan - abdomen: Attestation: I personally reviewed and interpreted this imaging study as follows: My impression: Distal right ureteric stone with no evidence of hydronephrosis Radiologist's impression: ITS Impressions Abdomen/Pelvis CT 07/28/22 10:01 IMPRESSION: 1. 7 mm partially obstructive right distal ureteral calculi. There is no hydronephrosis. 2. Diffuse colonic diverticulosis without diverticulitis. Fleischner guidelines were followed. Scrotum Ultrasound 07/28/22 10:30 IMPRESSION: Unremarkable ultrasound scrotum and testes. Scrotum Ultrasound 07/28/22 10:30 IMPRESSION: Unremarkable ultrasound scrotum and testes. Discharge Plan Discharge Anticipated Discharge Date/Time: 07/29/22 19:34 Patient Disposition: Home, Self-Care Discharge Diagnosis: right distal ureteric stone Referrals: Sathish Corbin MD [Physician] - 2 Weeks ( stent removal office) PhysicianBebo [Primary Care Provider] - 1 Week Discharge Medications: New tramadol 50 mg tablet 50 mg PO Q6H PRN (Reason: pain (scale score 1-3)) Qty: 8 0RF phenazopyridine [Pyridium] 100 mg tablet 100 mg PO TID PRN (Reason: Spasm) 4 Days Qty: 12 0RF sulfamethoxazole-trimethoprim [Bactrim DS] 800-160 mg tablet 1 tab PO BID 3 Days Qty: 6 0RF Continued multivitamin Tablet 1 tab PO DAILY atorvastatin 20 mg tablet 1 tab PO BEDTIME benzonatate 200 mg capsule 1 cap PO TID PRN (Reason: Cough) aspirin 81 mg Tablet,Delayed Release (Dr/Ec) 81 mg PO DAILY ascorbic acid (vitamin C) [Vitamin C] 500 mg Tablet 500 mg PO DAILY tamsulosin 0.4 mg capsule 1 cap PO BEDTIME lisinopril 10 mg tablet 1 tab PO BEDTIME hydrochlorothiazide 25 mg tablet 1 tab PO DAILY albuterol sulfate 90 mcg/actuation HFA aerosol inhaler 2 puff inhalation QID PRN (Reason: Shortness Of Breath Or Wheezing) ipratropium bromide 42 mcg (0.06 %) spray,non-aerosol 2 spray intranasal TID PRN (Reason: Allergy Symptoms) fluticasone propionate [Flovent HFA] 110 mcg/actuation HFA aerosol inhaler 1 puff INHALATION BID PRN (Reason: Shortness Of Breath Or Wheezing) diclofenac sodium 1 % gel 4 g topical BID PRN (Reason: Inflammation) Rx Instructions: apply to elbows Discharge Orders: Discharge Order (Routine); Ordered 07/29/22 Ordered By: Sathish Corbin Diet: Advance to usual diet Activity on Discharge: As tolerated Stand Alone Forms: Patient Portal Discharge page Care Plan Goals: stones Health Concerns: stones Plan of Treatment: stones Assessment: stones Patient Instructions: Ureteroscopy (DC)
[2022-07-29] MEDS: Phenazopyridine HCL 100 MG TABLET PO (19:57)
[2022-08-05 14:48] LABS: Stone Source RIGHT URETERAL STONE
== END 2022-07-29 20:44 | disposition home or self-care (01) | DRG 446 ==
LOC: HO.ED 11:14 → HO.EDOVER 15:24 → HO.S3 16:57
PROVIDERS: Admitting Provider Urology; Emergency Provider Emergency Medicine; PCP Physician Assistant Medical; Visit Provider Urology
PROC: 0TC68ZZ Extirpation of Matter from Right Ureter, Via Natural or Artificial Opening Endoscopic (ICD-10-PCS; CPT 52356; principal; 2022-07-29 14:40)
DX: N20.1 Calculus of ureter (principal); E78.00 Pure hypercholesterolemia, unspecified; I10 Essential (primary) hypertension; Z20.822 Contact with and (suspected) exposure to COVID-19; Z79.82 Long term (current) use of aspirin; Z79.899 Other long term (current) drug therapy
CPT/HCPCS: 52356; 36415; 74176; 76870; 80048; 80076; 81001; 82365; 83690; 85025; 87635; 88300; 93975; 99285; C1758; C1769; C2617; J1170; J1885; J1956; J2270; J2405; J3010; Q9967

== ENCOUNTER → 2022-08-20 13:47 | Outpatient (BNVA) | payer OTHER, SELFPAY | PROVIDERS: Visit Provider Urology | DX: N20.0 Calculus of kidney (principal) | CPT/HCPCS: 52310 ==

== ENCOUNTER 2022-10-30 13:51 | Outpatient (REF) | payer OTHER, SELFPAY ==
--- NOTE | ~2022-10-30 | US_ITS ---
EXAMINATION: US RETROPERITONEAL LIMITED (RENAL ONLY) CLINICAL INFORMATION: Calculus of kidney. COMPARISON: CT abdomen and pelvis without contrast 07/28/2022. TECHNIQUE: Real-time imaging of the kidneys. FINDINGS: RIGHT KIDNEY: 11.9 x 7.1 x 5.5 cm (SAG x AP x TRV). The kidney is normal in size, contour, and echogenicity. Renal cortical thickness is normal. No calculi or focal parenchymal lesions. No hydronephrosis. LEFT KIDNEY: 12.2 x 5.4 x 5.2 cm (SAG x AP x TRV). The kidney is normal in size, contour, and echogenicity. Renal cortical thickness is normal. No calculi or focal parenchymal lesions. No hydronephrosis. US/US renal BI IMPRESSION: Normal renal ultrasound.
== END 2022-10-30 13:52 | disposition home or self-care (01) ==
LOC: HO.US 13:51
PROVIDERS: Visit Provider Urology
DX: N20.0 Calculus of kidney (principal)
CPT/HCPCS: 76775

== ENCOUNTER → 2022-11-15 15:00 | Outpatient (BNVA) | payer OTHER, SELFPAY | PROVIDERS: PCP Physician Assistant Medical; Visit Provider Urology ==

== ENCOUNTER 2023-05-13 06:20 | Emergency (ER) | payer OTHER, SELFPAY ==
--- NOTE | ~2023-05-13 | CT_ITS ---
EXAMINATION: CT HEAD WITHOUT CONTRAST CLINICAL INFORMATION: Head trauma COMPARISON: None available. TECHNIQUE: Contiguous axial imaging was performed from the skull base to vertex without intravenous administration of contrast. This CT examination was performed using dose optimization techniques as appropriate, variously including the following: *Automated exposure control *Adjustment of mA and/or kV according to patient size (this includes techniques or standardized protocols for targeted exams where dose is matched to indication/reason for exam; i.e. extremities or head) *Use of iterative reconstruction technique DLP: 760 mGy-cm FINDINGS: The ventricles and sulci are normal in size and configuration. No acute hemorrhage, mass effect or shift is evident. Gallardo-white differentiation is maintained. In the posterior fossa, the brainstem, cerebellum and fourth ventricle image normally. The orbits and calvarium are intact. The paranasal sinuses and mastoid air cells are well pneumatized and clear. CT/CT head/brain wo IV con IMPRESSION: 1. Unremarkable noncontrast brain CT. No acute hemorrhage, fracture, mass effect or shift.
--- NOTE | ~2023-05-13 | CT_ITS ---
EXAMINATION: CT CERVICAL SPINE WITHOUT CONTRAST CLINICAL INFORMATION: Head injury, pain. COMPARISON: None available. TECHNIQUE: 3 mm thin axial and reformatted 2 mm thin sagittal and coronal images of cervical spine were obtained without contrast. This CT examination was performed using dose optimization techniques as appropriate, variously including the following: *Automated exposure control *Adjustment of mA and/or kV according to patient size (this includes techniques or standardized protocols for targeted exams where dose is matched to indication/reason for exam; i.e. extremities or head) *Use of iterative reconstruction technique DLP: 1199 mGy-cm FINDINGS: There is normal lumbar lordosis. The vertebral heights, alignment and disc heights are normal. There is no visible acute fracture, dislocation or subluxation seen. The craniovertebral junction and the C1-C2 alignment is normal. No visible acute fracture the prevertebral and paravertebral soft tissues are normal. The airways are widely patent. The lung apices are clear. CT/CT cervical spine wo IV con IMPRESSION: Unremarkable CT cervical spine exam. Fleischner guidelines were followed.
[2023-05-13 06:26] VITALS: BP 150/97; PULSE 92; RESP 19; TEMP 36.6; O2SAT 97; BMI 33.4
--- NOTE | 2023-05-13 07:09 | ED_ITS ---
HPI - General Adult General Chief complaint: Head Injury Stated complaint: Work Injury/Head Inj Time Seen by Provider: 05/13/23 07:09 Source: patient Mode of arrival: ambulatory Limitations: no limitations History of Present Illness HPI narrative: Patient is a 53 year old assigned male at with a history of kidney stones presenting to the emergency department today with a head laceration. Patient states that he was at work when he got hit by a metal item on his right forehead. Patient denies any loss of consciousness. Patient states that he had his last tetanus shot 2-3 years ago. Patient states that he is feeling some what nauseous. Patient denies any dizziness, lightheadedness, abdominal pain, vomiting, fever, chills, blurry vision, double vision, loss of vision, chest pain, difficulty breathing, shortness of breath, back pain, night sweats, pain with urination, increased urinary frequency, increased urinary urgency, blood in his urine or stool, syncope or a near syncopal episode, bowel incontinence, bladder incontinence, bowel retention, bladder retention, or any other complaints at this time. Onset (ago): minute(s) Location: head Radiation: non-radiation Severity: mild Severity scale (1-10): 3 Quality: aching and dull Pain Consistency: constant Relieving factors: none Exacerbating factors: none Associated symptoms: denies other symptoms Treatments prior to arrival: none Related Data Home Medications Medication Instructions Recorded Confirmed albuterol sulfate 90 mcg/actuation 2 puff inhalation QID PRN 07/28/22 11/15/22 aerosol inhaler Shortness Of Breath Or Wheezing aspirin 81 mg tablet,delayed 81 mg PO DAILY 07/28/22 11/15/22 release atorvastatin 20 mg tablet 1 tab PO BEDTIME 07/28/22 11/15/22 fluticasone propionate 110 1 puff inhalation BID PRN 07/28/22 11/15/22 mcg/actuation HFA aerosol inhaler Shortness Of Breath Or Wheezing (Flovent HFA) hydrochlorothiazide 25 mg tablet 1 tab PO DAILY 07/28/22 11/15/22 lisinopril 10 mg tablet 1 tab PO BEDTIME 07/28/22 11/15/22 multivitamin 1 tab PO DAILY 07/28/22 11/15/22 tamsulosin 0.4 mg capsule 1 cap PO BEDTIME 07/28/22 11/15/22 finasteride 5 mg tablet 5 mg PO DAILY 11/15/22 11/15/22 Previous Rx's Medication Instructions Recorded pyridoxine (vitamin B6) 50 mg 50 mg PO DAILY 90 days #90 tabs 11/15/22 tablet Allergies Allergy/AdvReac Type Severity Reaction Status Date / Time No Known Allergies Allergy Unverified 11/15/22 15:18 [No Known Allergies*] Review of Systems 2 Constitutional: Constitutional: Reports no additional constitutional complaints, Denies chills, Denies fever(s) and Denies night sweats Comments: abrasion to the right side of his forehead Eyes: Eyes: Reports no additional eye complaints, Denies blurry vision, Denies change in vision, Denies diplopia, Denies eye discharge, Denies loss of vision and Denies eye pain ENT: Denies dizziness Cardiovascular: Cardiovascular: Reports no additional cardiovascular complaints, Denies chest pain, Denies lightheadedness, Denies Loss of Consciousness and Denies dyspnea Respiratory: Respiratory: Reports no additional respiratory complaints and Denies dyspnea Gastrointestinal: Gastrointestinal: Reports no additional gastrointestinal complaints, Denies abdominal pain, Denies melena, Denies hematochezia, Denies change in bowel habits and Denies change in stool character Genitourinary: Genitourinary: Reports no additional male genitourinary complaints, Denies hematuria, Denies oliguria, Denies difficulty urinating, Denies dysuria, Denies urinary frequency, Denies urinary hesitancy, Denies urinary incontinence and Denies urinary urgency Musculoskeletal: Musculoskeletal: Reports no additional musculoskeletal complaints, Denies numbness and Denies tingling Neurologic: Denies dizziness, Denies loss of vision, Denies numbness and Denies tingling Psychiatric: Psychiatric: Reports no additional psychiatric complaints Endocrine: Endocrine: Reports no additional endocrine complaints Hematologic/Lymphatic: Hematologic/Lymphatic: Reports no additional hematologic/lymphatic complaints Allergic/Immunologic: Allergic/Immunologic: Reports no additional allergic/immunologic complaints PMFSH Past Medical History Attestation statement: The following information was validated with the patient. Source: old records reviewed and nursing notes reviewed Medical History Hypercholesteremia Hypertension Asthma Social History Social History Household Members: None Housing: House Do you presently have visiting nurse or other home services: No Patient Tobacco Use Status: Never used Tobacco Advance Directives: No Advance Directives Information Provided: Yes service: No Current occupational status: employed Physical Exam ED Vital Signs: Vital Signs - 24 hr 05/13/23 06:26 05/13/23 08:45 Temperature 97.9 F 98 F Pulse Rate 92 63 Respiratory Rate 19 16 Blood Pressure 150/97 H 139/85 Pulse Oximetry 97 97 Oxygen Delivery Method Room Air Room Air BMI result Body Mass Index 33.4 Const General: cooperative, no acute distress, alert and awake Nutritional Appearance: well nourished Orientation/consciousness: patient oriented x3 Limitations: no limitations HENMT Head images: 2 1. 1cm abrasion, no gaping area, no active bleeding Ears: hearing grossly normal bilaterally and external ears normal General nose exam: Normal external nose present, no nasal discharge noted and no epistaxis Face and sinus: Yes normal facial exam, No abrasion and No laceration Mouth: Normal oral and palatal mucosa present, no drooling and no muffled voice Eyes General: appearance normal, both eyes and all related structures Periorbital: periorbital findings normal Eyelids: Yes eyelids normal Conjunctivae: conjunctivae normal Pupils: Equal, round and reactive pupils present EOM: EOMs intact bilaterally Neck Neck: Yes normal visual inspection, Yes full ROM and Yes no lymphadenopathy Chest Chest palpation & inspection: normal inspection of the chest Resp Effort & Inspection: normal respiratory effort and able to speak in complete sentences GI Inspection: Yes normal to inspection Neuro General: patient oriented x3 and moves all extremities Cranial nerves: Yes Equal, round and reactive pupils present Cognition (Neuro): normal cognition Motor exam (neuro): 5/5 motor strength present throughout Sensory Exam: Normal double simultaneous stimulation for sensation Coordination: [id number] test normal Extrem General: Yes normal to inspection, Yes full ROM and Yes capillary refill normal Psych Appearance: grossly normal Mental Status: mental status grossly normal Affect: normal affect Attitude: cooperative Thought process: Normal thought process present Thought content: Normal thought content present Insight: Good insight present (Psych) Procedures Laceration Laceration 1: Site: face Side (If applicable): right Size (cm): 1 Depth: simple, single layer Pre-repair: wound explored, irrigated extensively and deep structures intact Skin layer closed with: other (dermabond) Size (cm): other (dermabond) Medical Decision Making Medical Decision Making MDM Narrative: Patient is a 53 year old assigned male at with a history of kidney stones presenting to the emergency department today with a forehead laceration. Patient's physical exam showed a 1cm abrasion to the right side of the forehead with no active bleeding or gaping areas. Patient's head and c-spine CT showed no acute process. I explained my physical exam findings as well as all test results to the patient. I answered all questions asked by the patient. Patient's abrasion had dermabond applied to it, without incident. I stressed the importance of the patient taking his medication as prescribed. I stressed the importance of the patient following up with his primary care provider. I stressed the importance of the patient returning to the emergency department immediately if his symptoms were to worsen or if he were to develop any dizziness, shortness of breath, difficulty breathing, chest pain, blurry vision, loss of vision, nausea, vomiting, abdominal pain, fever, chills, back pain, or any other complaints. Patient verbalized agreement and understanding with this treatment plan and discharge. Differential Diagnosis Differential Diagnoses: The differential diagnosis associated with the presentation includes Head abrasion Head laceration Independent Interpretation I performed an independent interpretation of an: CT Scan Interpretation: My interpretation is in agreement with the radiologist's impression of these imaging studies. - EXAMINATION: CT HEAD WITHOUT CONTRAST CLINICAL INFORMATION: Head trauma COMPARISON: None available. TECHNIQUE: Contiguous axial imaging was performed from the skull base to vertex without intravenous administration of contrast. This CT examination was performed using dose optimization techniques as appropriate, variously including the following: *Automated exposure control *Adjustment of mA and/or kV according to patient size (this includes techniques or standardized protocols for targeted exams where dose is matched to indication/reason for exam; i.e. extremities or head) *Use of iterative reconstruction technique DLP: 760 mGy-cm FINDINGS: The ventricles and sulci are normal in size and configuration. No acute hemorrhage, mass effect or shift is evident. Gallardo-white differentiation is maintained. In the posterior fossa, the brainstem, cerebellum and fourth ventricle image normally. The orbits and calvarium are intact. The paranasal sinuses and mastoid air cells are well pneumatized and clear. CT/CT head/brain wo IV con IMPRESSION: 1. Unremarkable noncontrast brain CT. No acute hemorrhage, fracture, mass effect or shift. Dictated By: Hema Galeana MD Signed By: Electronically signed by Hema Galeana MD 05/13/23 0827 - EXAMINATION: CT CERVICAL SPINE WITHOUT CONTRAST CLINICAL INFORMATION: Head injury, pain. COMPARISON: None available. TECHNIQUE: 3 mm thin axial and reformatted 2 mm thin sagittal and coronal images of cervical spine were obtained without contrast. This CT examination was performed using dose optimization techniques as appropriate, variously including the following: *Automated exposure control *Adjustment of mA and/or kV according to patient size (this includes techniques or standardized protocols for targeted exams where dose is matched to indication/reason for exam; i.e. extremities or head) *Use of iterative reconstruction technique DLP: 1199 mGy-cm FINDINGS: There is normal lumbar lordosis. The vertebral heights, alignment and disc heights are normal. There is no visible acute fracture, dislocation or subluxation seen. The craniovertebral junction and the C1-C2 alignment is normal. No visible acute fracture the prevertebral and paravertebral soft tissues are normal. The airways are widely patent. The lung apices are clear. CT/CT cervical spine wo IV con IMPRESSION: Unremarkable CT cervical spine exam. Fleischner guidelines were followed. Dictated By: Sinan Meza MD Signed By: Electronically signed by Sinan Meza MD 05/13/23 0934 Radiology Impression Discussion of test interpretation with radiology: I have reviewed the radiologist's reading. Discharge Plan Discharge Clinical Impression: Forehead laceration Patient Disposition: Home, Self-Care Instructions: Laceration (DC), Concussion (ED), Skin Adhesive Care (ED) Additional Instructions: Do NOT get the affected area wet for at LEAST 7 days. Follow up with your primary care provider. Return to the emergency department immediately if your symptoms worsen or if you develop any dizziness, shortness of breath, difficulty breathing, chest pain, blurry vision, loss of vision, nausea, vomiting, abdominal pain, fever, chills, back pain, or any other complaints. Prescriptions: No Action multivitamin Tablet 1 tab PO DAILY atorvastatin 20 mg tablet 1 tab PO BEDTIME aspirin 81 mg Tablet,Delayed Release (Dr/Ec) 81 mg PO DAILY tamsulosin 0.4 mg capsule 1 cap PO BEDTIME lisinopril 10 mg tablet 1 tab PO BEDTIME hydrochlorothiazide 25 mg tablet 1 tab PO DAILY albuterol sulfate 90 mcg/actuation HFA aerosol inhaler 2 puff inhalation QID PRN (Reason: Shortness Of Breath Or Wheezing) fluticasone propionate [Flovent HFA] 110 mcg/actuation HFA aerosol inhaler 1 puff INHALATION BID PRN (Reason: Shortness Of Breath Or Wheezing) pyridoxine (vitamin B6) 50 mg tablet 50 mg PO DAILY 90 Days Qty: 90 3RF finasteride 5 mg tablet 5 mg PO DAILY Referrals: Osvaldo Reno PA [Primary Care Provider] - Stand Alone Forms: Work/School Release Interventions: ED Discharge Assessment Last Done: 05/13/23 10:02 Discharge Date/Time: 05/13/23 10:05 Print Language: Scottish
[2023-05-13 08:45] VITALS: BP 139/85; PULSE 63; RESP 16; TEMP 36.6; O2SAT 97
== END 2023-05-13 10:05 | disposition home or self-care (01) ==
PROVIDERS: Emergency Provider Emergency Medicine; PCP Physician Assistant Medical
DX: S01.81XA Laceration without foreign body of other part of head, initial encounter (principal); W22.8XXA Striking against or struck by other objects, initial encounter; Y93.89 Activity, other specified; Y92.219 Unspecified school as the place of occurrence of the external cause; Y99.0 Civilian activity done for income or pay
CPT/HCPCS: 12011; 70450; 72125; 99283; 99284

== ENCOUNTER → 2023-05-15 10:17 | Outpatient (BNVA) | payer OTHER, SELFPAY | PROVIDERS: PCP Physician Assistant Medical; Visit Provider Physician Assistant | DX: S01.81XA Laceration without foreign body of other part of head, initial encounter (principal); W22.8XXA Striking against or struck by other objects, initial encounter | CPT/HCPCS: 99204 ==

== ENCOUNTER → 2023-05-20 07:55 | Outpatient (BNVA) | payer OTHER, SELFPAY | PROVIDERS: PCP Physician Assistant Medical; Visit Provider Physician Assistant Medical | DX: S01.81XD Laceration without foreign body of other part of head, subsequent encounter (principal); W22.8XXD Striking against or struck by other objects, subsequent encounter | CPT/HCPCS: 99213 ==

== ENCOUNTER → 2023-05-29 08:56 | Outpatient (BNVA) | payer OTHER, SELFPAY | PROVIDERS: PCP Physician Assistant Medical; Visit Provider Physician Assistant | DX: S06.0X0D Concussion without loss of consciousness, subsequent encounter (principal); S01.91XD Laceration without foreign body of unspecified part of head, subsequent encounter; W22.8XXD Striking against or struck by other objects, subsequent encounter; M54.2 Cervicalgia; R42 Dizziness and giddiness | CPT/HCPCS: 99213 ==

== ENCOUNTER → 2023-06-11 09:28 | Outpatient (BNVA) | payer OTHER, SELFPAY | PROVIDERS: PCP Physician Assistant Medical; Visit Provider Physician Assistant | DX: M54.2 Cervicalgia (principal); R42 Dizziness and giddiness; F07.81 Postconcussional syndrome | CPT/HCPCS: 99214 ==

== ENCOUNTER → 2023-06-18 10:16 | Outpatient (BNVA) | payer OTHER, SELFPAY | PROVIDERS: PCP Physician Assistant Medical; Visit Provider Physician Assistant | DX: M54.2 Cervicalgia (principal); R42 Dizziness and giddiness; H53.9 Unspecified visual disturbance | CPT/HCPCS: 99214 ==

== ENCOUNTER 2023-06-19 13:00 | Outpatient (RCR) | payer OTHER, SELFPAY ==
--- NOTE | 2023-05-21 10:24 | MHC.OT.EP ---
[address] [phone] Occupational Therapy Plan of Care Patient Name: Hema Levin Date of Evaluation: 05/21/23 Diagnosis: Mild TBI Head laceration Cervicalgia Vertigo Pain Location: Headache/neck pain Current: 4/10 Best: 4/10 Worst: 8/10 when lying flat Pain Score: 4 Pain Scale Used: Numeric (0 - 10) Aggravating Factors: Lying on back, quick head movements Alleviating Factors: Muscle relaxers Assessment: Hema is a 53 y/o male referred to OT following a work injury. Pt. was in his normal state of health fixing a piece of equipment at work when a metal radiator cover fell and hit him on the forehead. Pt reports falling to the ground (-) LOC although felt disoriented. He was seen the same day at [facility]. Head laceration was closed w/ dermabond. Head and neck CT were unremarkable. He reports continued neck and posterior head pain, dizziness/vertigo with position changes and walking. He scored a 22/30 on the MOCA w/ areas of difficulty in executive functioning, decreased attention, and delayed memory recall. He demonstrated impaired visual convergence with complaints of dizziness and blurry vision. We reviewed concussion symptoms, use of thermal modalities for pain management, and eye exercises for home. Recommending continued OT services 2x/wk for 4 weeks to address noted barriers and assist in return to [facility]. Frequency and Duration: The patient will be seen 2x/wk for 4 weeks Short Term Goals: Decrease head and neck pain to <2/10 Pt will be educated in and trial sleep hygiene strategies Trial breathing techniques strategies for relaxation and stress management Pt. 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 Treatment Plan: Therapeutic Exercise Therapeutic Activity Home Exercise Program Neuro Re-ed Patient Education MHP Other (see comments) Cognitive therapy, headache management, stress management, sleepy hygiene Electronically Signed By: Christine Lafleur MS OTR/L Please Sign and return to therapist. Thank you once again for your referral.
--- NOTE | 2023-06-19 15:34 | MHC.OT.DC ---
[address] [phone] F: [phone] Occupational Therapy Discharge Note Patient Name: Hema Levin Provider: Keira Coleman Diagnosis: Mild TBI Head laceration Cervicalgia Vertigo Date of Evaluation: 05/21/23 Date of Discharge: 06/19/23 Treatments to Date: 6 Discharge Status: Discharge Summary: Pt had follow up with [facility] yesterday. He reports having a bad headache yesterday with increased blurry vision, this has since subsided. Overall, Hema has progressed very well in OT. The MOCA was readministered and he scored 26/30 indicating normal cognition. On evaluation last month, he scored 22/30. Noted improvements in executive functioning and attention skills. Headaches are improving. Some L side blurry vision and sudden onset dizziness can persist. Pt was educated in 4-4-4-4 breathing technique for nervous system regulation as he reports feeling overwhelmed easily. He was cleared to go back to work with lifting and climbing restrictions, although work was unable to accommodate this. At this time, Hema has demonstrated improvements and is IND with home cognition program including attention/memory games and [employer] online program. He has started chiropractic and vertigo therapy elsewhere. Hema is in agreement with dischage plan and has been instructed to call with questions/concerns. Electronically Signed By: Christine Lafleur MS OTR/L Reviewed/agree with student documentation: Therapist: Please Sign and return to therapist, thank you for your referral.
== END 2023-06-19 15:35 | disposition home or self-care (01) ==
LOC: HO.OT 13:00
PROVIDERS: PCP Physician Assistant Medical; Visit Provider Physician Assistant Medical
DX: S06.9XAD Unspecified intracranial injury with loss of consciousness status unknown, subsequent encounter (principal); R42 Dizziness and giddiness; M54.2 Cervicalgia
CPT/HCPCS: 97110; 97165; 97530

== ENCOUNTER → 2023-07-09 09:28 | Outpatient (BNVA) | payer OTHER, SELFPAY | PROVIDERS: PCP Physician Assistant Medical; Visit Provider Physician Assistant | DX: M54.2 Cervicalgia (principal); R42 Dizziness and giddiness; H43.819 Vitreous degeneration, unspecified eye; S06.9X0D Unspecified intracranial injury without loss of consciousness, subsequent encounter; W22.8XXD Striking against or struck by other objects, subsequent encounter | CPT/HCPCS: 99214 ==

== ENCOUNTER → 2023-07-22 09:26 | Outpatient (BNVA) | payer OTHER, SELFPAY | PROVIDERS: PCP Physician Assistant Medical; Visit Provider Physician Assistant | DX: M54.2 Cervicalgia (principal); R42 Dizziness and giddiness; H43.819 Vitreous degeneration, unspecified eye | CPT/HCPCS: 99214 ==

== ENCOUNTER → 2023-08-05 08:50 | Outpatient (BNVA) | payer OTHER, SELFPAY | PROVIDERS: PCP Physician Assistant Medical; Visit Provider Physician Assistant | DX: M54.2 Cervicalgia (principal); R42 Dizziness and giddiness; H43.819 Vitreous degeneration, unspecified eye | CPT/HCPCS: 99213 ==

== ENCOUNTER → 2023-08-19 09:29 | Outpatient (BNVA) | payer OTHER, SELFPAY | PROVIDERS: PCP Physician Assistant Medical; Visit Provider Physician Assistant | DX: S06.0X0D Concussion without loss of consciousness, subsequent encounter (principal); S01.81XD Laceration without foreign body of other part of head, subsequent encounter; W22.8XXD Striking against or struck by other objects, subsequent encounter; M54.2 Cervicalgia; R42 Dizziness and giddiness; H43.89 Other disorders of vitreous body | CPT/HCPCS: 99214 ==

== ENCOUNTER 2023-08-22 13:30 | Outpatient (RCR) | payer OTHER, SELFPAY ==
--- NOTE | 2023-07-28 15:42 | MHC.OT.OEV ---
[address] [phone] F: [phone] Occupational Therapy Evaluation Patient Name: Hema Levin Diagnosis: Post-concussion Date of Onset: 05/13/23 Attending Provider: Chikis Lujan History of Current Condition: Patient is a 53 year old male who was seen in the ED on 05/13/2023 for a hit on the head by an industrial sized radiator cover sustaining a laceration. Head and neck CT were unremarkable. He was then seen by OT for 5 visits for concussion symptoms. He is returning per physician's recommendation he is awaiting appointment to be scheduled with Neurology. Significant Medical History: hx if kidney stones Precautions/Contraindications: Photophobia Phonophobia Patient Goals: To get back to work. 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[employer]/ [employer] He live upstairs and his mother lives downstairs (I)ADLS/IADLS Living Situation, Family and/or Social Support: [place]es to the casino with friends Current Level of Function and Occupation Self Care, Employment, Leisure: He is on medical leave from job (I)ADLS min (A) IADLS Sleep: (I) Driving: (I) Vision: Impaired convergence Balance: Pain Assessment Pain Score: 3 Pain Scale Used: Numeric (0 - 10) Pain Location and Description: Back of head- pain comes and goes Aggravating Factors: Alleviating Factors: Skin and Soft Tissue Assessment Skin and Soft Tissue: Comments: Normal Nerve assessment Ulnar Nerve: Median Nerve: Radial Nerve: Comments: Sensory Assessment Temperature: Light Touch: Proprioception: Vibration: Comments: Edema Assessment Upper Extremity: Lower Extremity: Comments: Dexterity Assessment Dexterity: Comments: WFL Special Tests Comments: MOCA= 20/30 indicating mild cognitive impairment Patient demonstrated difficulty with executive functioning, delayed memory, and attention. This maybe indicative of difficulty with higher functional tasks such as medication management and recalling verbal instructions/ directions and difficulty with task orientation. The [place] Post-Concussion Symptoms Questionnaire: Immediate physical symptoms =4 Late symptoms impacting patient's psycosocial function and lifestyle= 45 Visual testing indicated difficulty with impaired convergence AROM(PROM) Strength Cervical Cervical Flexion: WFL Cervical Extension: WFL Cervical Lateral Flexion: (R)45, (L) 30 Cervical Rotation: (R) 55, (L) 40 Comments: Patient reports pain when performing neck flexion Shoulder Flexion: WFL Extension: WFL Abduction: WFL Internal Rotation: External Rotation: Comments: Flexion: Extension: Abduction: Internal Rotation: External Rotation: Comments: Elbow Flexion: Extension: Pronation: Supination: Comments: Flexion: Extension: Pronation: Supination: Comments: Wrist Flexion: Extension: Ulnar Deviation: Radial Deviation: Comments: Flexion: Extension: Ulnar Deviation: Radial Deviation: Comments: Thumb Thumb CMC Flexion: Thumb MCP Flexion: Thumb IP Flexion: Radial Abduction: Palmar Abduction: Phoenix (Kapandji 0-10): Comments: Digits Index MCP: PIP: DIP: Long MCP: PIP: DIP: Ring MCP: PIP: DIP: Small MCP: PIP: DIP: Comments: Gross Grasp: Lateral Pinch: Two-Point Pinch: Three-Jaw Rosales: Comments: Patient Education Primary Language: Surinamese Miter Grinder Operator Required: No Current Knowledge: Understands information with skills for self-management Teaching Method: Handouts Education Needs Identified on Evaluation: How did patient/family demonstrate learning? Patient demonstrates Patient verbalizes Barriers to Learning: None Readiness for Learning: Accepting Who was educated? Patient Comments: Plan of Care Assessment: Patient is a 53 year old male who was seen in the ED on 05/13/2023 for a hit on the head by an industrial sized radiator cover sustaining a laceration. He was then seen by OT for 5 visits for concussion symptoms. He is returning per physician's recommendation as he is awaiting appointment to be scheduled with Neurology. Patient reports he lives with on the upstairs and his mother lives on the 1st floor. 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 He reported he was hit on the head by an industrial sized radiator cover, he is unsure if he suffered LOC or if he fell. Currently he reports continued pain (3/10) near the occiput with movement, cervical range of motion is limited as evident by his current measurements as follows: neck rotation (R)55, (L)40, lateral flexion (R)45, (L) 30. Patient reports continued difficulty with light sensitivity and vertigo symptoms when transferring from sit to stand or transitioning from a dim light room to a lighted room, visual testing revealed impaired convergence. MOCA= 20/30 indicating mild cognitive impairment. Based on initial evaluation patient's current level of function is min (A) IADLs as patient presents with impaired range of motion, pain, impaired executive functioning, delayed memory, and attention as evident by the MOCA, impaired vision and impaired IADLs performance. Due to the documented impairments it is recommended that patient receive skilled OT in order for patient to achieve his prior level of function and to achieve his main objective of returning to work. Thank you for your referral. 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 Frequency and Duration: The patient will be seen 2x a week for 4 weeks Treatment Plan: Therapeutic Exercise Therapeutic Activity Home Exercise Program Neuro Re-ed Patient Education MHP Other (see comments) Cognitive therapy, headache management, stress management, sleep hygiene Electronically Signed By: Heidi Wade OTR/L Reviewed/agree with student documentation: Therapist: Please sign and return to therapist, Thank you for your referral.
--- NOTE | 2023-08-22 13:58 | MHC.OT.DC ---
[address] [phone] F: [phone] Occupational Therapy Discharge Note Patient Name: Hema Pablo Jimmarvel Provider: Chikis Lujan Diagnosis: Post-concussion Date of Surgery: Date of Evaluation: 07/28/23 Date of Discharge: 08/22/23 Treatments to Date: 7 Cancellations to Date: No Shows to Date: Discharge Status: Discharge Summary: Patient and therapist reviewed breathing compensatory strategies, sleep hygiene techniques, and HEP exercises program. He declined to participate in eye exercises as he reported he felt dizzy. He reported occiput pain as a 2/10 and he has increased his MOCA and [place] score, and is (I) with HEP reaching all of his LTGs. As he has achieved maximal potential during therapy patient is discharged from skilled OT services. Thank you for your referral he was a pleasure to work with. Electronically Signed By: Heidi Wade OTR/Rossana Reviewed/agree with student documentation: Therapist: Please Sign and return to therapist, thank you for your referral.
== END 2023-09-19 13:06 | disposition home or self-care (01) ==
LOC: HO.OT 13:30
PROVIDERS: PCP Physician Assistant Medical; Visit Provider Physician Assistant
DX: S06.0XAD Concussion with loss of consciousness status unknown, subsequent encounter (principal)
CPT/HCPCS: 97110; 97166; 97535

== ENCOUNTER → 2023-09-09 08:54 | Outpatient (BNVA) | payer OTHER, SELFPAY | PROVIDERS: PCP Physician Assistant Medical; Visit Provider Physician Assistant | DX: M54.2 Cervicalgia (principal); R42 Dizziness and giddiness; H43.819 Vitreous degeneration, unspecified eye | CPT/HCPCS: 99213 ==

== ENCOUNTER 2023-09-12 08:00 | Outpatient (RCR) | payer OTHER, SELFPAY | END 2023-12-01 08:33 | disposition home or self-care (01) | LOC: HO.PT 08:00 | PROVIDERS: PCP Physician Assistant Medical; Visit Provider Physician Assistant | DX: R42 Dizziness and giddiness (principal) | CPT/HCPCS: 95992; 97110; 97112; 97162 ==

== ENCOUNTER → 2023-10-01 09:51 | Outpatient (BNVA) | payer OTHER, SELFPAY | PROVIDERS: PCP Physician Assistant Medical; Visit Provider Physician Assistant | DX: M54.2 Cervicalgia (principal); R42 Dizziness and giddiness; S06.0X0D Concussion without loss of consciousness, subsequent encounter; W22.8XXD Striking against or struck by other objects, subsequent encounter; H43.819 Vitreous degeneration, unspecified eye | CPT/HCPCS: 99213 ==

== ENCOUNTER → 2023-10-22 09:54 | Outpatient (BNVA) | payer OTHER, SELFPAY | PROVIDERS: PCP Physician Assistant Medical; Visit Provider Physician Assistant | DX: S06.9X0D Unspecified intracranial injury without loss of consciousness, subsequent encounter (principal); W22.8XXD Striking against or struck by other objects, subsequent encounter; M54.2 Cervicalgia; R42 Dizziness and giddiness; H43.819 Vitreous degeneration, unspecified eye | CPT/HCPCS: 99213 ==

== ENCOUNTER 2023-11-12 13:48 | Outpatient (REF) | payer OTHER, SELFPAY ==
--- NOTE | ~2023-11-12 | US_ITS ---
EXAMINATION: US RETROPERITONEAL LIMITED (RENAL ONLY) CLINICAL INFORMATION: Calculus of kidney. COMPARISON: Renal ultrasound 10/30/2022. CT abdomen and pelvis without contrast 07/28/2022. TECHNIQUE: Real-time imaging of the kidneys. FINDINGS: RIGHT KIDNEY: 12.1 x 6.4 x 6.1 cm (SAG x AP x TRV). The kidney is normal in size, contour, and echogenicity. Renal cortical thickness is normal. No calculi or focal parenchymal lesions. No hydronephrosis. LEFT KIDNEY: 13.3 x 5.1 x 4.4 cm (SAG x AP x TRV). The kidney is normal in size, contour, and echogenicity. Renal cortical thickness is normal. No calculi or focal parenchymal lesions. No hydronephrosis. US/US renal BI IMPRESSION: No visible nephrolithiasis or hydronephrosis.
== END 2023-11-12 13:49 | disposition home or self-care (01) ==
LOC: HO.US 13:48
PROVIDERS: PCP Physician Assistant Medical; Visit Provider Urology
DX: N20.0 Calculus of kidney (principal)
CPT/HCPCS: 76775

== ENCOUNTER 2023-11-18 14:42 | Outpatient (AMB) | payer OTHER, SELFPAY ==
--- NOTE | 2023-11-18 14:52 | A.OFFVIS_ITS ---
Intake Visit Reasons: 1Y US(set) Intake Note: Patient is present for follow up ultrasound Urology Medications: finasteride/tamsulosin Blood Thinner: aspirin Company Accountant Required: No Accompanied by: Self / Same As Patient Allergies No Known Allergies [No Known Allergies*] Allergy (Unverified 11/15/22 15:18) HPI Comments Details: Hema Is a pleasant male. He is a patient of Dr. Reno. He seen for the following urologic conditions - nephrolithiasis Twelve month surveillance No stones seen Continue vitamin B6 and fluids Imaging surveillance 12 months Nephrolithiasis Recent intervention for right distal ureteric stone Intervention - 08/05 right ureteroscopy for distal stone Laboratories - 08/05 Ca 9.4 Imaging - 08/05 CT scan 7 mm distal right ureteric stone - 11/04 renal ultrasound no stones seen Stone composition - 08/05 calcium monohydrate 80% Therapeutic plan - vitamin B6 - fluids - interval surveillance Used to work for the [employer] Medical History Hypercholesteremia Hypertension Asthma Social History Household Members: None Housing: House Do you presently have visiting nurse or other home services: No Patient Tobacco Use Status: Never used Tobacco service: No Current occupational status: employed Review of Systems Const Denies chills and Denies fever(s) Card Reports no additional complaints and Denies syncope Resp Denies cough GI Denies abdominal pain and Denies heartburn Reports as per HPI and Denies change in libido Neuro Denies syncope Psych Denies change in libido Endo Denies change in libido Physical Exam Const General: cooperative, healthy appearing, comfortable and no acute distress Orientation/consciousness: patient oriented x3 HEENT Face and sinus: Yes normal facial exam Mouth: moist mucous membranes Neck Neck: Yes normal visual inspection, Yes full ROM and Yes trachea midline Chest Chest palpation & inspection: normal inspection of the chest Resp Effort & Inspection: normal respiratory effort, able to speak in complete sentences and no respiratory distress GI Inspection: Yes normal to inspection Back/Spine/Pelvis Cervical Spine: normal cervical lordosis Thoracic/Lumbar Spine: thoracic and lumbar spine normal to inspection Skin General skin exam: no rashes or lesions noted Neuro General: patient oriented x3, gait normal, tone normal and moves all extremities Extrem General: Yes normal to inspection and Yes capillary refill normal Assessment & Plan Assessment & Plan (1) Calculus of kidney: Code(s): N20.0 - Calculus of kidney Category: Medical Plan Twelve month follow-up renal ultrasound Orders: Orders US renal BI 12 Months N20.0 - Calculus of kidney Patient Instructions: Imaging studies, laboratory and physical exam results were discussed and reviewed in detail. No major barriers to patient understanding were identified. An opportunity to ask questions regarding the treatment plan was provided. All questions were answered. The patient expressed understanding and agreement with the above treatment plan. The patient is aware they should contact our office by phone for worsening of their current condition or the appearance of new urologic symptoms. Compliance is encouraged with any medications and followup testing that is ordered. It is a privilege to participate in the urologic care of your patient. If you have any questions or concerns regarding treatment for the above conditions, or other urologic issues, please do not hesitate to contact me. The office telephone contact is [phone]. This note is constructed using voice recognition software. While every effort has been made to ensure accuracy couples therapist errors may have been included. Yours sincerely, Dr Sathish Corbin MD, [facility] - Urology Providers of Expert, Compassionate Care for the Genitourinary System Coding Level of Care Code Est Pt Level 4 (39714) Diagnoses Calculus of kidney N20.0
== END 2023-11-18 15:19 | disposition home or self-care (01) ==
PROVIDERS: Visit Provider Urology
DX: N20.0 Calculus of kidney (principal)
CPT/HCPCS: 99213

== ENCOUNTER → 2023-11-18 14:42 | Outpatient (BNVA) | payer OTHER, SELFPAY | PROVIDERS: Visit Provider Urology ==

== ENCOUNTER → 2023-11-20 09:06 | Outpatient (BNVA) | payer OTHER, SELFPAY | PROVIDERS: PCP Physician Assistant Medical; Visit Provider Physician Assistant | DX: R42 Dizziness and giddiness (principal); M54.2 Cervicalgia; H43.819 Vitreous degeneration, unspecified eye; F07.81 Postconcussional syndrome | CPT/HCPCS: 99213 ==

== ENCOUNTER → 2023-12-10 09:15 | Outpatient (BNVA) | payer OTHER, SELFPAY | PROVIDERS: PCP Physician Assistant Medical; Visit Provider Physician Assistant | DX: M54.2 Cervicalgia (principal); R42 Dizziness and giddiness; F07.81 Postconcussional syndrome; H43.819 Vitreous degeneration, unspecified eye | CPT/HCPCS: 99214 ==

== ENCOUNTER → 2023-12-18 09:27 | Outpatient (BNVA) | payer OTHER, SELFPAY | PROVIDERS: PCP Physician Assistant Medical; Visit Provider Physician Assistant | DX: M54.2 Cervicalgia (principal); R42 Dizziness and giddiness; F07.81 Postconcussional syndrome; H43.819 Vitreous degeneration, unspecified eye | CPT/HCPCS: 99213 ==

== ENCOUNTER 2023-12-18 12:45 | Outpatient (REF) | payer OTHER, SELFPAY ==
--- NOTE | ~2023-12-18 | MR_ITS ---
EXAMINATION: MR BRAIN WITHOUT CONTRAST CLINICAL INFORMATION: Persistent vertigo, frontal occipital headaches, vision changes x6 months after head injury. As per technologist note, patient refused contrast injection. COMPARISON: No prior MRI. CT head 05/13/2023. TECHNIQUE: MRI of the brain was obtained using routine sequences without contrast. Examination performed on 1.5 Yoly unit. FINDINGS: There is no diffusion restriction. There is no intracranial hemorrhage, acute infarction, mass effect, or edema. Ventricles, sulci, and cisterns are normal in size and configuration for patient age. No shift of midline. No abnormal hemosiderin deposition is identified. There are no white matter signal abnormalities identified. Midline structures appear normally formed. The pituitary gland appears normal. No posterior fossa abnormality. Cerebellar tonsils are appropriately located. Major flow voids are preserved within the skull base. The globes and orbital contents demonstrate no abnormalities. There is a tiny mucous retention cyst in the left maxillary antrum. Paranasal sinuses are otherwise normally pneumatized. There is leftward deviation of the posterior nasal septum with no spurring. Large rosalio bullosa in the right middle turbinate. The mastoids and tympanic cavities are normally aerated. Extracranial soft tissues demonstrate no abnormalities. No suspicious bone marrow signal changes are evident. Atlantoaxial joint is normal. MR/MR head/brain wo con IMPRESSION: Normal examination. No evidence of intracranial hemorrhage, acute infarction, mass effect, edema, abnormal susceptibility, or white matter signal abnormality.
== END 2023-12-18 12:46 | disposition home or self-care (01) ==
LOC: HO.MRI 12:45
PROVIDERS: PCP Physician Assistant Medical; Visit Provider Internal Medicine
DX: R42 Dizziness and giddiness (principal); H53.9 Unspecified visual disturbance
CPT/HCPCS: 70551

== ENCOUNTER → 2023-12-18 12:45 | Outpatient (BNV) | payer OTHER, SELFPAY | PROVIDERS: PCP Physician Assistant Medical; Visit Provider Radiology Diagnostic Radiology | DX: R42 Dizziness and giddiness (principal); R51.9 Headache, unspecified | CPT/HCPCS: 70551 ==

== ENCOUNTER 2024-01-01 11:04 | Outpatient (AMB) | payer OTHER, SELFPAY ==
--- NOTE | 2024-01-01 11:07 | MHC.OFFVIS ---
Vital Signs 01/01/24 11:11 Height 5 ft 11 in Weight 245 lb BMI 34.2 BP 140/90 H Blood Pressure Location Rt brachial Position Sitting Pulse 71 Pulse Source Pulse Oximeter Pulse Oximetry (%) 95 Oxygen Delivery Method Room Air Intake Visit Reasons: ENP-Persisting post concussion-LVM Intake Note: patient presents for persisting post concussion. April last year at work lifting a radiator and changing valve when he lifted radiator and cover hit his head and knocked him out. Allergies No Known Allergies [No Known Allergies*] Allergy (Unverified 01/01/24 11:13) Medication List - Last Reconciled 01/04/24 by Cassidy Marcum, EDEN albuterol sulfate 90 mcg/actuation 2 puffs inhalation QID PRN amoxicillin-pot clavulanate 875-125 mg 1 tab PO BID 10 days aspirin 81 mg PO DAILY atorvastatin 1 tab PO BEDTIME cyclobenzaprine 10 mg PO BEDTIME PRN finasteride 5 mg PO DAILY fluticasone propionate 110 mcg/actuation (Flovent HFA) 1 puff inhalation BID PRN hydrochlorothiazide 1 tab PO DAILY lisinopril 1 tab PO BEDTIME multivitamin 1 tab PO DAILY pyridoxine (vitamin B6) 50 mg PO DAILY 90 days tamsulosin 1 cap PO BEDTIME HPI Comments Details: 53-yr-old male presents for new pt evaluation of work-related postconcussive syndrome. Pt reports Has had one previous concussion 5-7 years ago- was not severe, self-resolved w/in 2 months. Has a h/o occasional migraine which he attributes to sinus infection or allergies- headache a/w photophobia, phonophobia, N/V.? 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 Pt reports he was lifting a radiator up when the radiator cover fell back and struck him in his forehead. He had LOC. He felt dazed and lightheaded. He states it took him a while to ?come to his senses?. His co-workers told him he should go to the ER, so he drove himself to [facility] ER. By the time he got to the ER, he had dizziness, difficulty walking straight, photophobia, headache. His head CT was normal. He was discharged home to f/u w/ [employer]. When he went home, he shut everything down- such as the lights, sounds. He was home for the next 5 months d/t the headaches, photophobia, dizziness, gait difficulties- had some falls, feeling depressed. He eventually returned to work w/ light duty restrictions.? 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 Did have a recent sinus infection that worsened his dizziness, balance, and anxiety. He was treated w/ a course of ABT which helped. He is prone to seasonal allergies.? 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 He has been doing vestibular tx at [facility].? The dizziness is gradually improving. Previously had room spinning with seeing strobe lights. Can feel like he would pass out. But still having difficulty with ladders. Has trailing double vision since the accident- has improved. He still finds that he has difficulty with memory, cognition is foggy, multi-tasking, difficulty focusing.?He has difficulty working on the computer. He is not having headaches as bad as before. No head discomfort in the last 2 weeks. He is still phonophobic.? States he is sleeping ok now. Denies sleep apnea. His mother had sleep apnea. Brain MRI w/o (as mother had contrast allergy) recently done- results pending. Has not done MANAGER OF INTERNATIONAL or cognitive tx. [facility] Medical History Hypercholesteremia Hypertension Asthma Family History Father Prostate CA History of heart attack Mother Arthritis Diabetes Brother History of heart attack Social History Household Members: None Housing: House Do you presently have visiting nurse or other home services: No Patient Tobacco Use Status: Never used Tobacco service: No Current occupational status: employed Physical Exam Vital Signs: Last Vital Signs Pulse 71 01/01/24 11:11 BP 140/90 H 01/01/24 11:11 Pulse Ox 95 01/01/24 11:11 Oxygen Delivery Method Room Air 01/01/24 11:11 BMI result Body Mass Index 34.2 Const Orientation/consciousness: patient oriented x3 HEENT Other: No palpable scalp tenderness. Head: Yes normocephalic Resp Effort & Inspection: normal respiratory effort and able to speak in complete sentences Neuro General: patient oriented x3 Cranial nerves: Yes CN's II-XII intact bilaterally Cognition (Neuro): normal cognition Gait exam (Neuro): Normal gait present Motor exam (neuro): 5/5 motor strength present throughout Deep tendon reflexes (DTR's): Right triceps reflex intensity grade: 2+, Left triceps reflex intensity grade: 2+, Rt Biceps (C5, C6): 2+, Left biceps reflex intensity grade: 2+, Right brachioradialis reflex intensity grade: 2+, Left brachioradialis reflex intensity grade: 2+, Right patellar reflex intensity grade: 2+ and Left patellar reflex intensity grade: 2+ Coordination: [id number] test normal, tandem gait normal and Romberg test negative Pupils: Normal pupillary reactivity/response: bilateral Psych Appearance: grossly normal Mental Status: mental status grossly normal Speech and movement: Normal speech and movement present Affect: normal affect Attitude: cooperative Thought process: Normal thought process present Assessment & Plan Assessment & Plan (1) Postconcussive syndrome: Code(s): F07.81 - Postconcussional syndrome Category: Medical (2) Cognitive dysfunction: Code(s): F09 - Unspecified mental disorder due to known physiological condition Category: Medical (3) Snoring: Code(s): R06.83 - Snoring Category: Medical (4) Fatigue: Code(s): R53.83 - Other fatigue Category: Medical Plan Discussed that pt's postconcussive syndrome s/s do appear to have improved over time. I would expect these to continue to improve, although this may take several months. Pt does have a h/o migraine, which does raise the risk of having prolonged or longer postconcussive syndrome symptoms, however symptoms are improving, which again is reassuring. Pt is advised to have MANAGER OF [employer] eval & tx for postconcussive cognitive dysfunction. Monitor headaches. He has not tried any prescription prevention or acute tx yet. Will request recent ophthalmology notes. Continue vestibular PT exercises. Continue restricted work through f/u. Brain MRI reviewed when results became available- normal. Called pt 01/08/24 to review results- no answer, M/L. MR/MR head/brain wo con IMPRESSION: Normal examination. No evidence of intracranial hemorrhage, acute infarction, mass effect, edema, abnormal susceptibility, or white matter signal abnormality. Case discussed w/ Dr Dorinda Daugherty. Orders: Referrals Speech and Hearing Referral F07.81 - Postconcussional syndrome, F09 - Unspecified mental disorder due to known physiological condition Coding Level of Care Code New Pt Level 4 (67659) Diagnoses Postconcussive syndrome F07.81 Cognitive dysfunction F09 Snoring R06.83 Fatigue R53.83
[2024-01-01 11:11] VITALS: BP 140/90; PULSE 71; O2SAT 95; BMI 34.2
== END 2024-01-01 12:44 | disposition home or self-care (01) ==
PROVIDERS: PCP Physician Assistant Medical; Visit Provider Nurse Practitioner Family
DX: F07.81 Postconcussional syndrome (principal); R41.89 Other symptoms and signs involving cognitive functions and awareness; R06.83 Snoring; R53.83 Other fatigue
CPT/HCPCS: 99204

== ENCOUNTER → 2024-01-01 11:04 | Outpatient (BNVA) | payer OTHER, SELFPAY | PROVIDERS: PCP Physician Assistant Medical; Visit Provider Nurse Practitioner Family | DX: F07.81 Postconcussional syndrome (principal); F09 Unspecified mental disorder due to known physiological condition; R06.83 Snoring; R53.83 Other fatigue | CPT/HCPCS: 99202 ==

== ENCOUNTER → 2024-01-07 09:25 | Outpatient (BNVA) | payer OTHER, SELFPAY | PROVIDERS: PCP Physician Assistant Medical; Visit Provider Physician Assistant | DX: F07.81 Postconcussional syndrome (principal); R42 Dizziness and giddiness; S05.92XD Unspecified injury of left eye and orbit, subsequent encounter | CPT/HCPCS: 99214 ==

== ENCOUNTER → 2024-02-04 09:00 | Outpatient (BNVA) | payer OTHER, SELFPAY | PROVIDERS: PCP Physician Assistant Medical; Visit Provider Physician Assistant | DX: F07.81 Postconcussional syndrome (principal); R42 Dizziness and giddiness | CPT/HCPCS: 99213 ==

== ENCOUNTER 2024-02-18 09:00 | Outpatient (RCR) | payer OTHER, SELFPAY | END 2024-04-13 11:28 | disposition home or self-care (01) | LOC: HO.PT 09:00 | PROVIDERS: PCP Physician Assistant Medical; Visit Provider Physician Assistant | DX: R42 Dizziness and giddiness (principal) | CPT/HCPCS: 95992; 97110; 97112; 97161; 97530 ==

== ENCOUNTER 2024-03-08 13:25 | Outpatient (RCR) | payer OTHER, SELFPAY ==
--- NOTE | 2024-03-29 15:00 | MHC.SP.ADU ---
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 He reports immediate symptoms of severe phonophobia, head aches, and vertigo which continue to this day. He reports some symptom relief, however continues to suffer from the same symptoms. He returned to work on light duty 5 months later. 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 He endorses difficulty with memory, feeling foggy, reduced ability to multitask. Recent Hospitalizations: No Respiratory Needs: Room Air Patient Orientation: Alert & Oriented x 4 Social History: Employment Status: Unknown Highest level of education obtained: Current Living Situation: Home independent with Family close by. Assistive Devices in use: Glasses/Contacts Comment: Past Speech Language Therapy: None. Other Therapies Seen in Current Calendar Year: Speech Therapy Swallowing History: Dysphagia Specific: Within Functional Limits Comments: Pre-eval Risk for Aspiration: None Pre-evaluation Dietary Consistencies: Regular Pre-eval Liquid Intake: Thin Pre-eval Medication Intake: Whole with Liquid Reported Speech, Language, Cognition difficulties: Attention Memory Cognition Problem Solving Quality of Life: Pt expresses frustration with his cognitive changes, and want to be better. Patient Stated Goal of Speech-Language Therapy: Help with my memory Assessment Speech Production: Clinical Impression: Intact Informal Voice Assessment: Voice Loudness: Normal Voice Nasal Resonance: Normal Voice Oral Resonance: Normal Voice Phonatory-based Quality: Normal Voice Pitch: Normal Voice Other Observations: Clinical Impression: Intact Tests of Speech & Lang Adults: Clinical Impression: Intact Tests of Cognition: RBANS Clinical Impression: Intact Observations: I.) Immediate Memory Index: 94 Ia.) List Learning: -- Scaled Score: 4 Ib.) Story Memory: -- Scaled Score: 11 The Immediate Memory Index measures, ?initial encoding and learning of complex and simple verbal information. Low scores on this index indicated difficulties with verbal learning.? The score is derived from the participant?s performance on the subtests List Learning and Story Memory. List Learning measures, ?rote verbal memory function.? Participants are asked to repeat back a list of ten words presented to them verbally across four trials. Poor performance on this subtest indicates that, ?the examinee may have difficulty learning new verbal information and that repetition may not be beneficial?, if they do not improve across trials. The Story Memory subtest measures, ?memory for conceptually related verbal information.? Here, a short story is read to them across two trials and they are asked to recall details from the story. ?The test is a measure of verbal memory functioning for information that is related?. As with List Learning, participants that do not demonstrate a positive learning curve across trials could indicate, ?difficulty with learning new verbal learning, and that repetition may not help, or that the examinee may have difficulty retrieving new information from memory. II.) Visuospatial/Constructional Index: 116 IIa.) Figure Copy: -- Scaled Score: 11 IIb.) Line Orientation: -- Percentile Group: >75 The Visuospatial/Constructional Index is derived from the Figure Copy and Line Orientation subtests. It measures, ?basic visuospatial perception and the ability to copy a design from a model?. Low performance with this index can indicate, ?difficulties with processing and using visuospatial information?, or, ?visual impairments or attention disorders such as catherine neglect?. The Figure Copy subtest requires the examinee to copy a complex geometrical design from a model that is present throughout the task. ?This requires many cognitive skills including visuospatial reasoning, attention to visual details, motor programming, and to a lesser degree, organization and fine-motor ability?. Points are given for specific details, as well as specific placement in the context of the entire image. The Line Orientation subtest measures, ?the examinee?s ability to correctly identify spatial orientation in two-dimensions?. Poor performance indicates significant visuospatial impairments in acuity and attention. III.) Language Index: 99 IIIa.) Picture Naming: -- Percentile Group: 51-75 IIIb.) Semantic Fluency: -- Scaled Score: 10 The Language Index is, ?a measure of expressive language functioning?. Low scores with this subtest ?would indicate difficulties with language functioning? and, ?while the overall score would still indicate language difficulties, the deficits may be more related to fluency versus naming skills.? The Picture Naming subtest is provided by showing the participant a series of 10 simple line drawing and asking them to name them. The Semantic Fluency subtest is a measure of, ?the examinee?s ability to retrieve and express words using a semantic prompt?. In brief, the examinee is given a category and asked to name as many exemplars as they can in 60 seconds. Low scores, ?indicate significantly impaired ability to retrieve and express verbal information from long-term memory stores?. IV.) Attention Index: 75 Baltazar.) Digit Span: -- Scaled Score: 8 IVb.) Coding: -- Scaled Score: 4 The Attention Index is a derived from the Digit Span and Coding subtests. It is a measure of, ?simple auditory registration, visual scanning and processing speed. Low scores on this index indicate, ?difficulties with basic attention and processing speed?. Difficulties can vary between the subtests suggesting acute differences between auditory and visual processing and attention. Digit Span is a measure of, ?auditory registration and brief focused attention. Low scores can also indicate difficulties with auditory attention and registration?. In it, the examinee is read a series of single digit numbers and asked to repeat them back in the same order. ?Impairments in auditory acuity can also influence performance on this test?. Coding is a measure of, ?brief, focused, visual attention, visual scanning and processing speed?. In it, the examinee is given a lopez at the top of the page where each symbol is associated with a different number. The examinee is then asked to fill out as many numbers to corresponding symbols as they can in 90 seconds. In incorporates the notion of diligence and sustained attention as well. Difficulties can indicate problems with, ?processing speed and focused visual attention?. V.) Delayed Memory Index: 81 Va.) List Recall: -- Percentile Group: 26-50 Vb.) List Recognition: -- Percentile Group: 10-16 Vc.) Story Recall: -- Scaled Score: 9 Vd.) Figure Recall: -- Scaled Score: 7 The Delayed Memory Index is derived by combining the subtest scores for List Recall, Story Recall, and Figure Recall, and cross-referencing them with the List Recognition subtest. Auditory and Visual subtest are combined together. Difference between subtests can be highlighted to provide more specific information about areas of deficit and strength. ?The deficits, may be more related to verbal more than visual memory, or free recall as opposed to recognition memory or general variability in memory functioning.? .) Total Scale Score: 81 (%ile=32)4 SUMMARY: Mr. Levin demonstrated a range of ability level across domains. He demonstrated relative strength in the domains of Visuo-Spatial/Contruction and Language. However his weaknesses were otherwise across the board in both Immediate and Delayed Memory, with Attention being his area of most difficulty. Significantly his scores in Immediate and Delayed Memory were about the same showing no deficit in delayed memory which would indicate loss of information not already attained in the immediate conditions. These test score are consistent with his report of difficulty remembering information and losing track of his thoughts. He will benefit from a short course of Cognitive-Communication treatment to target deficits in immediate and short term memory and promote cognitively stimulating task to promote his long-term brain health. Impressions and Recommendations Summary: Daily Activities: Mild Interpersonal Interactions: Mild Education: None Employment: Mild Prognosis for Improvement: Good Recommendation for Speech Therapy: Outpatient Speech Therapy Frequency/Duration: 1 x week x 10 weeks Date Range for Service Requested: 03/08/24 - 07/08/24 Time to Reassess: PRN Territory Account Representative Goals: LTG1: Pt will improve attention and processing skills with use of compensatory strategies. Short Term Goals: Goal # : STG1: Pt will demonstrate knowledge of the 5 attention types with >80% accuracy independently. Goal Status: New Goal Goal# : STG2: Pt will complete complex logic puzzles with use of compensatory strategies with >80% accuracy. Goal Status: New Goal Goal # : STG3: Pt will increase short-term recall of 5 item lists with >80% accuracy and minimal assistance. Goal Status: New Goal Goal # : STG4: Pt/Caregiver will complete weekly assigned HEP tasks with >80% accuracy independently. Goal Status: New Goal Recommended Referrals to be Discussed with Primary Care Provider: Other: See Comment Continue with referring provider. Patient Education: Completed: Yes Patient/Caregiver Education: Described Results of Evaluation Patient expressed understanding of evaluation Patient agrees with goals and treatment plan Family/Caregivers demonstrated recommended strategies Bundle Tier Clinican/Clinical Fellow: No Supervisory Statement: N/A Speech Language Pathologist:
== END 2024-04-06 08:16 | disposition still patient (30) ==
LOC: HO.SH 13:25
PROVIDERS: PCP Physician Assistant Medical; Visit Provider Nurse Practitioner Family
DX: F07.81 Postconcussional syndrome (principal)

== ENCOUNTER → 2024-03-10 09:29 | Outpatient (BNVA) | payer OTHER, SELFPAY | PROVIDERS: PCP Physician Assistant Medical; Visit Provider Physician Assistant | DX: F07.81 Postconcussional syndrome (principal); R42 Dizziness and giddiness | CPT/HCPCS: 99214 ==

== ENCOUNTER 2024-04-05 15:57 | Outpatient (AMB) | payer OTHER, SELFPAY ==
--- NOTE | 2024-04-05 16:00 | MHC.OFFVIS ---
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
--- NOTE | 2024-04-05 16:01 | MHC.OFFVIS ---
Intake Visit Reasons: Follow up W/C Intake Note: Patient presents for follow up Allergies No Known Allergies [No Known Allergies*] Allergy (Unverified 04/05/24 16:05) Medication List - Last Reconciled 04/05/24 by EDEN Gonzalez albuterol sulfate 90 mcg/actuation 2 puffs inhalation QID PRN amoxicillin-pot clavulanate 875-125 mg 1 tab PO BID 10 days aspirin 81 mg PO DAILY atorvastatin 1 tab PO BEDTIME azelastine 2 sprays intranasal BID 30 days cyclobenzaprine 10 mg PO BEDTIME PRN finasteride 5 mg PO DAILY fluticasone propionate 110 mcg/actuation (Flovent HFA) 1 puff inhalation BID PRN hydrochlorothiazide 1 tab PO DAILY lisinopril 1 tab PO BEDTIME magnesium oxide 400 mg PO BEDTIME multivitamin 1 tab PO DAILY pyridoxine (vitamin B6) 50 mg PO DAILY 90 days riboflavin (vitamin B2) 400 mg PO DAILY 30 days scopolamine base 1 patch transdermal Q72H PRN tamsulosin 1 cap PO BEDTIME HPI Comments Details: 54-yr-old male presents for f/u televideo visit via [employer] for f/u of work-related postconcussive syndrome. Pt had Covid-19 about 2 weeks ago, he still has residual cough. Pt notes he had [employer]EC[employer]IVE eval & tx- was advised to have 10 tx sessions, however this was only just approved and only for 4 sessions. Pt states he has not been able to do PT- d/t work comp coverage. He continues to have room spinning vertigo, when he stands up from bending over or being on his knees. He has been able to climb a 6-8 ft ladder, but nothing higher. He never climbs a ladder alone. He has been having a bit more headaches. Allergies and sinus pressure can exacerbate the dizziness, headaches, and blurred vision. He does have a h/o sinus headaches but these are worse since the accident last Apr. He has been using Mucinex nasal spray, lemon teas. PCP is referring him to ENT- but pt has not heard yet. He feels his cognitive difficulties are a bit better, but still has difficulty with memory, cognition is foggy, multi-tasking, difficulty focusing.?He is better able to work on his work computer, but this is broken up throughout the day so he is not spending extended times on his work computer. When he needs to use the computer for longer, say an hour long Zoom meeting, he needs to avoid staring directly at the screen even w/ screen light dimmed. Using strategies to help w/ recall- such as reminders to perform his daily tasks, writing things down. [facility] Medical History Hypercholesteremia Hypertension Asthma Family History Father Prostate CA History of heart attack Mother Arthritis Diabetes Brother History of heart attack Social History Household Members: None Housing: House Do you presently have visiting nurse or other home services: No Patient Tobacco Use Status: Never used Tobacco service: No Current occupational status: employed Physical Exam Const General: cooperative and no acute distress Orientation/consciousness: patient oriented x3 Resp Other: Mildly hoarse voice. Occasional dry non-productive cough Effort & Inspection: normal respiratory effort and able to speak in complete sentences Neuro General: patient oriented x3 Cognition (Neuro): normal cognition Psych Appearance: grossly normal Mental Status: mental status grossly normal Speech and movement: Normal speech and movement present Affect: normal affect Attitude: cooperative Telehealth Telehealth Telehealth Platform: [facility] Location of provider rendering services: practice address Location of patient: address on file Patient Identification confirmed using: Name, : Yes Telehealth method: video Patient verbally consented to treatment: Yes Patient verbally consented to billing insurance company: Yes Patient informed of any privacy concerns related to visit: Yes Minutes spent on Phone/Video with Pt.: 35 Assessment & Plan Assessment & Plan (1) Postconcussive syndrome: Code(s): F07.81 - Postconcussional syndrome Category: Medical (2) Cognitive dysfunction: Code(s): F09 - Unspecified mental disorder due to known physiological condition Category: Medical (3) Dizziness: Code(s): R42 - Dizziness and giddiness Category: Medical Plan Pt's postconcussive syndrome s/s do appear to be improving over time, however he does still have bothersome cognitive, dizziness, and headache s/s. I would expect these to continue to improve, although this may take several months. Pt does have a h/o migraine, which does raise the risk of having prolonged or longer postconcussive syndrome symptoms. Stop Mucinex nasal spray. Trial Azelastine nsal spray 2 sprays bid. Continue lemon tea, cough drops. Concur w/ ENT referal- may consider referal to [facility] if their wait times are shorter. Consider HST once feeling better. ? Pt is advised to start [employer]EC[employer]IVE tx to optimize postconcussive cognitive dysfunction. For headaches- Increase Riboflaviun from 100mg qam to 400mg qam. Continue Magnesium 400mg qhs. May use Advil 400-600mg q 4-6 hrs prn. He has not tried any prescription prevention or acute tx yet. Pt would benefit from having PT for vestibular tx. Continue restricted work through f/u. f/u in 4 months or sooner prn. ? Orders: Orders PT Evaluation and Treatment 04/05/24 F07.81 - Postconcussional syndrome, R42 - Dizziness and giddiness Medications: New azelastine administer into each nostril 2 sprays intranasal BID 30 mL 3RF 30 days riboflavin (vitamin B2) 400 mg PO DAILY 30 tabs 6RF 30 days Discontinued riboflavin (vitamin B2) Discontinued Reason: Doctor's Order 100 mg PO DAILY 30 tabs 5RF Coding Level of Care Code Tele Est Pt Level 4 (81953) Diagnoses Postconcussive syndrome F07.81 Cognitive dysfunction F09 Dizziness R42
== END 2024-04-05 16:30 | disposition home or self-care (01) ==
PROVIDERS: PCP Physician Assistant Medical; Visit Provider Nurse Practitioner Family
DX: F07.81 Postconcussional syndrome (principal); F09 Unspecified mental disorder due to known physiological condition; R42 Dizziness and giddiness
CPT/HCPCS: 99214

== ENCOUNTER → 2024-04-05 16:04 | Outpatient (BNVA) | payer OTHER, SELFPAY | PROVIDERS: PCP Physician Assistant Medical; Visit Provider Nurse Practitioner Family ==

== ENCOUNTER → 2024-04-07 09:27 | Outpatient (BNVA) | payer OTHER, SELFPAY | PROVIDERS: PCP Physician Assistant Medical; Visit Provider Physician Assistant | DX: F07.81 Postconcussional syndrome (principal); R42 Dizziness and giddiness | CPT/HCPCS: 99213 ==

== ENCOUNTER → 2024-05-07 10:53 | Outpatient (BNVA) | payer OTHER, SELFPAY | PROVIDERS: PCP Physician Assistant Medical; Visit Provider Physician Assistant | DX: F07.81 Postconcussional syndrome (principal); R42 Dizziness and giddiness; H43.819 Vitreous degeneration, unspecified eye | CPT/HCPCS: 99213 ==

== ENCOUNTER → 2024-06-16 09:29 | Outpatient (BNVA) | payer OTHER, SELFPAY | PROVIDERS: PCP Physician Assistant Medical; Visit Provider Physician Assistant | DX: F07.81 Postconcussional syndrome (principal); R42 Dizziness and giddiness | CPT/HCPCS: 99213 ==

== ENCOUNTER 2024-07-19 10:30 | Outpatient (RCR) | payer OTHER, SELFPAY ==
--- NOTE | 2024-05-12 14:19 | MHC.SL.SOA ---
Referring Provider: EDEN Gonzalez Reason for Referral: Postconcussional syndrome Date of Plan of Treatment:03/08/24 Onset of Symptoms/Illness:01/12/24 Date Treatment Started:03/08/24 Medical Diagnosis:Postconcusional syndrome (F07.81) Primary Speech Language Diagnosis:R41.841 Cognitive communication disorder Secondary Speech Language Diagnosis: Number of Authorized Visits Remainin Reason for Visit:49379 Individual Treatment Subjective:Mr. Levin was evaluated on 03/08/24 and he has been seen for 4 treatment visits starting 04/12/24. This is a progress note requested by his insurance to authorize more treatment visits. Objective: The following goals have been addressed this reporting period: STG1: Pt will demonstrate knowledge of the 5 attention types with >80% accuracy independently. STG2: Pt will complete complex logic puzzles with use of compensatory strategies with >80% accuracy. STG3: Pt will increase short-term recall of 5 item lists with >80% accuracy and minimal assistance. STG4: Pt/Caregiver will complete weekly assigned HEP tasks with >80% accuracy independently. Assessment:Hema has been a faithful attendant to his weekly Cognitive Communication Therapy visits. Visit are conducted in an outpatient setting for 45 minutes each. Each session consists of reviewing his previous HEP and introducing new and upgraded tasks for him to demonstrate back understanding of prior to being assigned them for the coming week. Hema has demonstrated good understanding of his limitations and ability to implement compensatory strategies. He takes naps when he gets home from work to provide cognitive rest. He has demonstrated back use of crossing-out, taking notes, and underlining to achieve complex cognitive tasks. Some of the more abstract and deductive logic puzzles he has been shown have been too frustrating for him. He has shown a preference for language-based treatments (analogies, semantic fluency). While such a short treatment period had yielded limited progress, he has demonstrated the dedication and motivation to participate in treatment that will make him an excellent candidate for ongoing outpatient Cognitive-Communication Therapy. It is my clinical opinion that he demonstrates both the need and the desire to continue that will make his therapy successful. Plan: Goal # : STG1: Pt will demonstrate knowledge of the 5 attention types with >80% accuracy independently. Status of Goal: Goal Met Goal # : STG2: Pt will complete complex logic puzzles with use of compensatory strategies with >80% accuracy. Status of Goal: Goal Continued Goal # : STG3: Pt will increase short-term recall of 5 item lists with >80% accuracy and minimal assistance. Status of Goal: Goal Continued Goal # : STG4: Pt/Caregiver will complete weekly assigned HEP tasks with >80% accuracy independently. Status of Goal: Goal Continued Seen by: Graduate/Clinical Fellow: No Supervisory Statement: N/a Speech Language Pathologist: Reagan Miranda M.A., CCC-[employer]
--- NOTE | 2024-06-14 12:02 | MHC.SL.SOA ---
Referring Provider: EDEN Gonzalez Reason for Referral: Postconcussional syndrome Date of Plan of Treatment:03/08/24 Onset of Symptoms/Illness:01/12/24 Date Treatment Started:03/08/24 Medical Diagnosis: Postconcusional syndrome (F07.81) Primary Speech Language Diagnosis: R41.841 Cognitive communication disorder Number of Authorized Visits Remainin Authorization End Date: 06/14/24 Reason for Visit: 70615 Individual Treatment Subjective: This is an updated progress note for Hema Levin (: 66). He has been seen for 8 visits since evaluation. He has attended 4 visits this reporting period. He continues to make positive gains towards his treatment goals despite some recent health concerns for both himself and his Daughter. Objective: The following goals were addressed this treatment period: STG1: Pt will complete True/False/Unknown questions with >80% accuracy independently. (Goal Continued) STG2: Pt will complete complex logic puzzles with use of compensatory strategies with >80% accuracy. (Goal Continued) STG3: Pt will increase short-term recall of 5 item lists with >80% accuracy and minimal assistance. (Goal Continued) STG4: Pt/Caregiver will complete weekly assigned HEP tasks with >80% accuracy independently. (Goal Continued) Assessment: Hema continues to be a faithful attendant to his weekly Cognitive Communication Therapy visits. Visits are conducted in an outpatient setting for 45 minutes each. Each session consists of reviewing his previous HEP and introducing new and upgraded tasks for him to demonstrate back understanding of prior to being assigned them for the coming week. Hema has started to gain more independence with complex logic games requiring multiple steps. In fact he himself notes some improvement in recent months to his activity tolerance as well as in his balance symptoms. He is at the point of his treatment now that he is ready to start seeking tasks out himself so that he can maintain gains when treatment is over. Some successes so far have been My Daily Set Puzzle, Sudoku (6x6) grids, and Logic Grids. He likes the inspector of weights and measures aspect of some of the logic games. He continues to demonstrate both the need and the motivation to continue that will make his therapy successful. This next treatment period will focus on maintenance and generalization in anticipation of discharge. Plan: Goal # : STG1: Pt will complete True/False/Unknown questions with >80% accuracy independently. Status of Goal: Goal Continued Goal # : STG2: Pt will complete complex logic puzzles with use of compensatory strategies with >80% accuracy. Status of Goal: Goal Continued Goal # : STG3: Pt will increase short-term recall of 5 item lists with >80% accuracy and minimal assistance. Status of Goal: Goal Continued Goal # : STG4: Pt/Caregiver will complete weekly assigned HEP tasks with >80% accuracy independently. Status of Goal: Goal Continued Seen by: Graduate/Clinical Fellow: No Supervisory Statement: N/a Speech Language Pathologist: Reagan Miranda M.A., CCC-PATCH SETTER
--- NOTE | 2024-07-19 12:14 | MHC.SL.SOA ---
Referring Provider: EDEN Gonzalez Reason for Referral: Postconcussional syndrome Date of Plan of Treatment:03/08/24 Onset of Symptoms/Illness:01/12/24 Date Treatment Started:03/08/24 Medical Diagnosis:Postconcusional syndrome (F07.81) Primary Speech Language Diagnosis:R41.841 Cognitive communication disorder Number of Authorized Visits Remainin Reason for Visit:[id number] Individual Treatment Subjective: This is a formal discharge for Hema Levin (: 66). Hema was initially evaluated on 03/10/24. He was seen for 9 visits starting on 05/10/24. 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 Hema always put his best effort forward and was not afraid to try new things. He was consistently compliant with his HEP assignments. Despite some stressors in his work and home life, he demonstrates good self-monitoring and compensatory strategies. He is discharged now having met his goals with the promise that he will apply what he has learned in therapy to his daily life. Objective: The following goals were addressed this reporting period: STG1: Pt will complete True/False/Unknown questions with >80% accuracy independently. STG2: Pt will complete complex logic puzzles with use of compensatory strategies with >80% accuracy. STG3: Pt will increase short-term recall of 5 item lists with >80% accuracy and minimal assistance. STG4: Pt/Caregiver will complete weekly assigned HEP tasks with >80% accuracy independently. Assessment: [place] faithful attendant to his weekly Cognitive Communication Therapy visits. Visits were conducted in an outpatient setting for 45 minutes each. Each session consisted of reviewing his previous HEP and introducing new and upgraded tasks for him to demonstrate back understanding of prior to being assigned them for the coming week. Hema has started to gain more independence with complex logic games requiring multiple steps. In fact he himself notes some improvement in recent months to his activity tolerance as well as in his balance symptoms. He is at the point of his treatment now that he is ready to start seeking tasks out himself so that he can maintain gains when treatment is over. Some successes so far have been My Daily Set Puzzle, Sudoku (6x6) grids, and Logic Grids. He likes the websphere commerce consultant aspect of some of the logic games. His final treatment period focused on maintenance and generalization in anticipation of discharge. He leaves his last session today in agreement with discharge and clear on the expectations that he will continue to pursue cognitively stimulating tasks at home and in the community. Plan: Goal # : STG1: Pt will complete True/False/Unknown questions with >80% accuracy independently. Status of Goal: Goal Met Goal # : STG2: Pt will complete complex logic puzzles with use of compensatory strategies with >80% accuracy. Status of Goal: Goal Met Goal # : STG3: Pt will increase short-term recall of 5 item lists with >80% accuracy and minimal assistance. Status of Goal: Goal Met Goal # : STG4: Pt/Caregiver will complete weekly assigned HEP tasks with >80% accuracy independently. Status of Goal: Goal Met Seen by: Graduate/Clinical Fellow: No Supervisory Statement: N/a Speech Language Pathologist: Reagan Miranda M.A., CCC-PAID SEARCH MARKETING ANALYST
== END 2024-07-22 10:16 | disposition home or self-care (01) ==
LOC: HO.SH 10:30
PROVIDERS: PCP Physician Assistant Medical; Visit Provider Nurse Practitioner Family
DX: F07.81 Postconcussional syndrome (principal); F09 Unspecified mental disorder due to known physiological condition
CPT/HCPCS: 92507

== ENCOUNTER → 2024-07-28 09:31 | Outpatient (BNVA) | payer OTHER, SELFPAY | PROVIDERS: PCP Physician Assistant Medical; Visit Provider Physician Assistant | DX: F07.81 Postconcussional syndrome (principal); R42 Dizziness and giddiness; L59.8 Other specified disorders of the skin and subcutaneous tissue related to radiation | CPT/HCPCS: 99214 ==

== ENCOUNTER → 2024-09-01 09:31 | Outpatient (BNVA) | payer OTHER, SELFPAY | PROVIDERS: PCP Physician Assistant Medical; Visit Provider Physician Assistant | DX: F07.81 Postconcussional syndrome (principal); R42 Dizziness and giddiness; S05.92XD Unspecified injury of left eye and orbit, subsequent encounter; S05.91XD Unspecified injury of right eye and orbit, subsequent encounter; W22.8XXD Striking against or struck by other objects, subsequent encounter | CPT/HCPCS: 99213 ==

== ENCOUNTER → 2024-09-22 09:56 | Outpatient (BNVA) | payer OTHER, SELFPAY | PROVIDERS: PCP Physician Assistant Medical; Visit Provider Physician Assistant | DX: R42 Dizziness and giddiness (principal); F07.81 Postconcussional syndrome; S05.10XD Contusion of eyeball and orbital tissues, unspecified eye, subsequent encounter; W22.8XXD Striking against or struck by other objects, subsequent encounter | CPT/HCPCS: 99213 ==

== ENCOUNTER → 2024-11-10 09:18 | Outpatient (BNVA) | payer OTHER, SELFPAY | PROVIDERS: PCP Physician Assistant Medical; Visit Provider Physician Assistant | DX: R42 Dizziness and giddiness (principal); F07.81 Postconcussional syndrome | CPT/HCPCS: 99214 ==

== ENCOUNTER 2024-11-16 08:22 | Outpatient (REF) | payer BC, SELFPAY ==
--- NOTE | ~2024-11-16 | US_ITS ---
EXAMINATION: US KIDNEY BILATERAL HISTORY: N20.0 - Calculus of kidney TECHNIQUE: Real-time grayscale ultrasound imaging of the kidneys was performed and images were reviewed. COMPARISON: Comparison is made with the prior examination dated 11/12/2023. FINDINGS: Right kidney: The right kidney measures 13.5 x 7.0 x 5.9 cm. Renal parenchymal echotexture and thickness are normal. There are no masses. There is no hydronephrosis or renal calculi. Left Kidney: The left kidney measures 12.7 x 5.6 x 4.9 cm. Renal parenchymal echotexture and thickness are normal. There is a 10 mm cyst at the upper pole. There is no hydronephrosis or renal calculi. US/US renal BI IMPRESSION: 10 mm left renal cyst. Otherwise unremarkable renal ultrasound. Electronically signed by: Renny Mckeon MD 11/16/2024 09:21 AM EDT
--- OUTSIDE RECORDS SUMMARY | 2024-11-16 08:38 | XMS_ITS | Clinical Summary ---
Author Organization [facility] Address [address] [place] [address] Phone Care Team Providers Care Paper Machine Back Tender Name Role Phone Osvaldo Reno Primary Care Provider [phone] Allergies No known active allergies Medications aspirin 81 mg EC tablet Take 1 tablet (81 mg total) by mouth 1 (one) time each day. Active atorvastatin (LIPITOR) 20 mg tablet Take 1 tablet (20 mg total) by mouth 1 (one) time each day. 11/28/2023 Active finasteride (PROSCAR) 5 mg tablet Take 1 tablet (5 mg total) by mouth 1 (one) time each day. 11/28/2023 Active fluticasone HFA (FLOVENT HFA) 110 mcg/actuation inhaler Inhale 1 Puff into the lungs 2 times daily. 05/27/2022 Active lisinopril-hydr oCHLOROthiazide (PRINZIDE,ZESTO RETIC) 10-12.5 mg per tablet Take 1 tablet by mouth 1 (one) time each day. 11/28/2023 Active pyridoxine (B-6) 100 mg tablet Take 1 tablet (100 mg total) by mouth 1 (one) time each day. 10/22/2022 Active MULTIVITAMIN ORAL 1 tab daily Active benzonatate (TESSALON) 100 mg capsule Take 1 capsule (100 mg total) by mouth 3 (three) times a day if needed for cough. Do not crush or chew. 42 capsule 3 05/31/2024 Active metFORMIN (GLUCOPHAGE) 500 mg tablet Take 1 tablet (500 mg total) by mouth 1 (one) time each day with breakfast. 30 each 10/15/2024 Active tirzepatide (MOUNJARO) 2.5 mg/0.5 mL injection Inject 0.5 mL (2.5 mg total) under the skin every 7 (seven) days. 6 mL 3 10/15/2024 Active Active Problems Problem Noted Date Diagnosed Date Class 1 obesity with body ma ss index (BMI) of 33.0 to 33.9 in adult 06/29/2024 New onset type 2 diabetes me llitus (CMS/HCC V24, CMS/HCC V28) 05/31/2024 Fatty liver 12/16/2022 Erectile dysfunction 11/25/2022 Nephrolithiasis 11/25/2022 Liver cyst 08/05/2014 AC (acromioclavicular) joint arthritis 1 Allergic rhinitis 03/21/2006 Overview (04/14/2024): Dr. Pandya Asthma 07/05/2005 Essential hypertension, benign 07/05/2005 Pure hypercholesterolemia 07/05/2005 Resolved Problems Problem Noted Date Diagnosed Date Resolved Date DNR (do not resuscitate) 05/26/2024 Encounters Date Type Department Care Team Description 10/15/2024 2:30 PM EDT Office Visit Adult Medicine [address] [phone] Osvaldo Reno PA New onset type 2 diabetes mellitus (CMS/HCC V24, CMS/HCC V28) (Primary Dx); Essential hypertension, benign; Fatty liver; Pure hypercholesterolemia; Class 1 obesity due to excess calories without serious comorbidity with body mass index (BMI) of 33.0 to 33.9 in adult 10/13/2024 Telephone Bariatric Surgery [address] [phone] Zee Cedillo PA Advice Only (Denial for Mounjaro) 10/06/2024 2:00 PM EDT Telemedicine Bariatric Surgery [address] [phone] Class 1 obesity with body mass index (BMI) of 33.0 to 33.9 in adult, unspecified obesity type, unspecified whether serious comorbidity present (Primary Dx) 08/27/2024 Telephone Bariatric Surgery - [place] [address] [facility] [address] [place] [address] Zoe ReinosoRIO RANCHO, [place] 08/26/2024 11:00 AM EST Office Visit Bariatric Surgery - [place] [address] [facility] [address] [place] [address] Zee Cedillo PA New onset type 2 diabetes mellitus (CMS/HCC V24, CMS/HCC V28) (Primary Dx); Class 1 obesity due to excess calories with serious comorbidity and body mass index (BMI) of 33.0 to 33.9 in adult from Last 3 Months Immunizations Name Administration Dates Next Due Influenza Quadravalent, MDCK , 0.5ml, preservative free (Flucelvax) 6mo and older 04/02/2022,04/28/2018 Influenza Quadravalent, MDCK , 0.5ml, with preservative (Flucelvax) 6mo and older 04/05/2020,04/09/2019,04/09/2017 Influenza trivalent, with pr eservative (Fluzone; Afluria) 6mo and older 03/28/2016,03/22/2015 Influenza, Unspecified 04/10/2020,04/09/2019 Pneumococcal polysaccharide 23 valent (Pneumovax 23) 2yo and older 03/28/2016 TD, Adsorbed, Preservative Free 01/29/2018 Tdap Tetanus diptheria acell ular pertussis (Boostrix; Adacel) 7yo and older 12/29/2007 Zoster recombinant (Shingrix ) 19yo and older 08/22/2023,06/10/2023 Surgical History Surgery Date Site/Laterality Comments WISDOM TOOTH EXTRACTION PROCEDURE: HISTORICAL WISDOM TEETH EXTRACTION OTHER SURGICAL HISTORY PROCEDURE: BENIGN TUMOR EXC > 1.25 CM; COMMENT: right lower medial calf; size like 2 golfballs OTHER SURGICAL HISTORY PROCEDURE: HISTORY OTHER; COMMENT: rt vein surgery (outpatient) dr hicks COLONOSCOPY 04/21/2019 PROCEDURE: HISTORICAL COLONOSCOPY; COMMENT: negative Medical History Medical History Date Comments Unspecified asthma(493.90) 07/05/2005 DX:Un specified asthma(493.90) Morbid obesity ([facility]/HCC V24, CMS/HCC V28) 09/08/2006 DX:Morbid obesity ([facility]) Unspecified essential hypertension DX:Unspecified essential hypertension Essential hypertension, benign 07/05/05 D X:Essential hypertension, benign Family history of colonic polyps 04/28/2018 DX:Family history of colonic polyps Asthma Elevated cholesterol Family History Medical History Relation Name Comments Coronary artery disease Brother Melanoma Daughter 1 Prostate cancer Father Cataracts Maternal Grandmother diabete s, stroke Colon polyps Mother ? number Colon cancer Other mggm; possibly diabetes Breast cancer Sister triple negativ e br ca; BRCA1,2 neg;hx two colon polyps Blindness Neg Hx Glaucoma Neg Hx Macular degeneration Neg Hx Strabismus Neg Hx Relation Name Status Comments Brother Alive Daughter 1 Daughter 2 Alive A&W Father (Age 63) prostate c ancer (dx'd 59); CAD - CABG x 3, HTN Maternal Grandmother Mother Alive (65) DMII, HTN, RA Other Sister Alive breast camcer Social History Tobacco Use Types Packs/Day Years Used Date Smoking Tobacco: Never Smokeless Tobacco: Never Tobacco Cessation:Counseling Given: Not Answered Alcohol Use Standard Drinks/Week Comments No 0 (1 standard drink = 0.6 oz pur e alcohol) Interpersonal Safety Answer Date Record ed Physical Abuse 05/24/2024 Verbal Abuse 05/24/2024 Sex and Gender Information Value Date Recorded Sex Assigned at Male 05/21/2024 2:05 PM EST Legal Sex Male 5:18 AM EST Gender Identity Male 05/21/2024 2:05 PM EST Sexual Orientation Straight 05/21/2024 2: 05 PM EST Obstetrics History Last Filed Vital Signs Vital Sign Reading Time Taken Comments Blood Pressure 132/70 10/15/2024 2:28 PM EDT Pulse 83 10/15/2024 2:28 PM EDT Temperature 36.4 ??C (97.6 ??F) 10/15/2024 2:28 PM ED T Respiratory Rate 15 10/15/2024 2:28 PM EDT Oxygen Saturation 95% 05/24/2024 8:16 AM EST Inhaled Oxygen Concentration - - Weight 109 kg (239 lb 9.6 oz) 10/15/2024 2:28 PM EDT Height 180.3 cm (5' 11 ) 10/15/2024 2:28 PM EDT Body Mass Index 33.42 10/15/2024 2:28 PM EDT Plan of Treatment Upcoming Encounters Date Type Department Care Team (Late st Contact Info) Description 11/24/2024 2:00 PM EDT Office Visit Bariatric Surgery - [place] [address] [phone] Zee Cedillo PA [address] [phone] 11/25/2024 2:00 PM EDT Telemedicine Bariatric Surgery - [place] [address] [phone] Rhonda Moss, RD [address] [phone] 03/18/2025 3:00 PM EDT Office Visit Adult Medicine [facility] [address] [place] [address] Osvaldo Reno PA [address] [place], [place] [phone] Health Maintenance Due Date Last Done Comments Hepatitis A Vaccines (1 of 2 - Risk 2-dose series) 02/16/1987 Hepatitis B Vaccines (1 of 3 - 19+ 3-dose series) 02/16/1987 Pneumococcal Vaccine: 50+ Years (2 of 2 - PCV) 03/28/2017 03/28/2016 Pneumococcal Vaccine: Pediatrics (0 to 5 Years) and At-Risk Patients (6 to 64 Years) (2 of 2 - PCV) 03/28/2017 03/28/2016 Depression Screening 06/22/2022 Social Influencers of Health Screening 06/22/2022 COVID-19 Vaccine ( season) 2024 05/30/2021, 10/15/2020, 09/16/2020 Influenza Vaccine (Season Ended) 2025 04/02/2022, 04/10/2020, 04/05/2020, Additional history exists Diabetes: Blood Sugar Control Test (HGBA1C) 04/13/2025 10/12/2024, 05/25/2024, 08/23/2021 Diabetes: Annual Urine Albumin-Creatinine Ratio (uACR) 10/12/2025 10/12/2024 Diabetes: Annual GFR (Glomerular Filtration Rate) 10/12/2025 10/12/2024, 11/24/2023, 11/24/2023 Hypertension/CHF/CAD Annual BMP Blood Test 10/12/2025 10/12/2024, 11/24/2023, 11/24/2023 DTaP,Tdap,and Td Vaccines (3 - Td or Tdap) 01/30/2028 01/29/2018, 12/29/2007 Colorectal Cancer Screening: Colonoscopy 05/24/2029 05/24/2024, 04/21/2019 Cholesterol Screening (Lipid Panel) 10/12/2029 10/12/2024, 11/24/2023, 11/24/2023 Hepatitis C Screening Completed 12/16/2022 Zoster Vaccines Completed 08/22/2023, 06/10/2023 HIV Screening Completed 10/12/2024 Diabetes: Annual Foot Exam Discontinued Diabetes: Annual Retina Eye Exam Discontinued HIB Vaccines Aged Out No longer eligi ble based on patient's age to complete this topic HPV Vaccines Aged Out No longer eligi ble based on patient's age to complete this topic IPV Vaccines Aged Out No longer eligi ble based on patient's age to complete this topic MMR Vaccines Aged Out No longer eligi ble based on patient's age to complete this topic Meningococcal ACWY Vaccine Aged Out N o longer eligible based on patient's age to complete this topic Meningococcal B Vaccine Aged Out No l onger eligible based on patient's age to complete this topic RSV Immunization Patients Under 20 months Aged Out No longer eligible based on patient's age to complete this topic Varicella Vaccines Aged Out No longer eligible based on patient's age to complete this topic Procedures Procedure Name Priority Date/Time Associated Diagnosis Comments LIPID PANEL WITH REFLEX TO DIRECT LDL Routine 10/12/2024 1:53 PM EDT New onset type 2 diabetes mellitus (CMS/HCC V24, CMS/HCC V28) Essential hypertension, benign Pure hypercholesterolemi a Fatty liver Liver cyst Nephrolithiasis Asthma with status asthmaticus, unspecified asthma severity, unspecified whether persistent MICROALBUMIN CREATININE URINE RATIO Routine 10/12/2024 1:53 PM EDT New onset type 2 diabetes mellitus (CMS/HCC V24, CMS/HCC V28) Essential hypertension, benign Pure hypercholesterolemi a Fatty liver Liver cyst Nephrolithiasis Asthma with status asthmaticus, unspecified asthma severity, unspecified whether persistent COMPREHENSIVE METABOLIC PANEL Routine 10/12/2024 1:53 PM EDT New onset type 2 diabetes mellitus (CMS/HCC V24, CMS/HCC V28) Essential hypertension, benign Pure hypercholesterolemi a Fatty liver Liver cyst Nephrolithiasis Asthma with status asthmaticus, unspecified asthma severity, unspecified whether persistent HEMOGLOBIN A1C Routine 10/12/2024 1:53 PM EDT New onset type 2 diabetes mellitus (CMS/HCC V24, CMS/HCC V28) Essential hypertension, benign Pure hypercholesterolemi a Fatty liver Liver cyst Nephrolithiasis Asthma with status asthmaticus, unspecified asthma severity, unspecified whether persistent PROSTATE SPECIFIC ANTIGEN SCREEN Routine 10/12/2024 1:53 PM EDT New onset type 2 diabetes mellitus (CMS/HCC V24, CMS/HCC V28) Essential hypertension, benign Pure hypercholesterolemi a Fatty liver Liver cyst Nephrolithiasis Asthma with status asthmaticus, unspecified asthma severity, unspecified whether persistent HIV 1, 2 ANTIBODY, P24 ANTIGEN WITH REFLEX TO DIFFERENTIATION Routine 10/12/2024 1:53 PM EDT New onset type 2 diabetes mellitus (CMS/HCC V24, CMS/HCC V28) Essential hypertension, benign Pure hypercholesterolemi a Fatty liver Liver cyst Nephrolithiasis Asthma with status asthmaticus, unspecified asthma severity, unspecified whether persistent COLONOSCOPY Routine 05/24/2024 7:55 AM EST Family history of colonic polyps HM HEPATITIS C SCREENING Routine 12/16/2022 from Last 3 Months or Most Recently Relevant to Health Maintenance Results * Prostate specific antigen screen (10/12/2024 1:53 PM EDT) [facility] PSA 0.10 0.00 - 4.00 ng/mL LAB CHEMISTRY METHOD 10/12/2024 7:27 PM EDT [facility] Blood Venous blood specimen / Unknown Venipuncture / Unknown 10/12/2024 1:53 PM EDT 10/12/2024 1:53 PM EDT [facility] - 10/12/2024 7:27 PM EDT The Siemens Advia DecisionDeskaur Chemiluminescent Immunoassay is used. Results obtained with different assay methods or kits cannot be used interchangeably. Results cannot be interpreted as absolute evidence of the presence or absence of malignant disease. Osvaldo Reno MS LAB BLOOD ORDERABLES Lillian l Result Performing Organization Address City/[facility]/ZIP Co de Phone Number [facility] [address] [place] [address], [place] [phone] * HIV 1,2 antibody, p24 antigen with reflex to differentiation (10/12/2024 1:53 PM EDT) [facility] HIV Combo AB/AG Negative Negative LAB CHEMISTRY METHOD 10/12/2024 8:07 PM EDT [facility] Blood Venous blood specimen / Unknown Venipuncture / Unknown 10/12/2024 1:53 PM EDT 10/12/2024 1:53 PM EDT [facility] - 10/12/2024 8:07 PM EDT This assay is a 4th generation assay allowing for earlier detection of HIV infection by detecting the presence of the HIV-1 p24 antigen as well as the traditional antibodies to HIV type 1 (including group O) and type 2. ??Use of a 4th generation assay is the current CDC recommendation for HIV screening. [facility] [employer] [facility] LAB BLOOD ORDERABLES Lillian l Result Performing Organization Address City/[facility]/ZIP Co de Phone Number [facility] [address] [place] [address], [place] [phone] * (ABNORMAL) Lipid panel with reflex to direct LDL (10/12/2024 1:53 PM EDT) Cholesterol 141 0 - 200 mg/dL LAB CHEMISTRY METHOD 10/12/2024 6:40 PM EDT [facility] Triglycerides 213(H) 0 - 150 mg/dL LAB CHEMISTRY METHOD 10/12/2024 6:40 PM EDT [facility] HDL 35(L) >=40 mg/dL LAB CHEMISTRY METHOD 10/12/2024 6:40 PM EDT [facility] LDL Calculated 63 0 - 100 mg/dL LAB CHEMISTRY METHOD 10/12/2024 6:40 PM EDT [facility] VLDL Cholesterol Raffaele 42.6 mg/dL LAB CHEMISTRY METHOD 10/12/2024 6:40 PM EDT [facility] Non HDL Chol. (LDL+VLDL) 106 <145 mg/dL LAB CHEMISTRY METHOD 10/12/2024 6:40 PM EDT [facility] Chol/HDL Ratio 4.0 0.0 - 4.4 LAB CHEMISTRY METHOD 10/12/2024 6:40 PM EDT [facility] Blood Venous blood specimen / Unknown Venipuncture / Unknown 10/12/2024 1:53 PM EDT 10/12/2024 1:53 PM EDT Osvaldo BRIGGS LAB BLOOD ORDERABLES Lillian l Result [facility] [address] [place] [address], [place] [phone] * (ABNORMAL) Microalbumin creatinine urine ratio (10/12/2024 1:53 PM EDT) Creatinine, Urine 128.0 mg/dL LAB CHEMISTRY METHOD 10/12/2024 7:37 PM EDT [facility] Microalb, Ur 59.7(H) 0.0 - 29.0 mg/L LAB CHEMISTRY METHOD 10/12/2024 7:37 PM EDT [facility] Microalb/Crea t Ratio 47(H) <30 mg/g creat LAB CHEMISTRY METHOD 10/12/2024 7:37 PM EDT [facility] Urine Urine specimen obtained by clean catch procedure / Unknown Non-blood Collection / Unknown 10/12/2024 1:53 PM EDT 10/12/2024 1:53 PM EDT Osvaldo BRIGGS LAB URINE ORDERABLES Lillian l Result Performing Organization Address [facility]/ZIP Co de Phone Number [facility] [address] [place] [address], [place] [phone] * (ABNORMAL) Hemoglobin A1c (10/12/2024 1:53 PM EDT) Hemoglobin A1C 6.9(H) <6.5 % LAB CHEMISTRY METHOD 10/12/2024 10:32 PM EDT [facility] Mean Bld Glu Estim. 151 mg/dL LAB CHEMISTRY METHOD 10/12/2024 10:32 PM EDT [facility] Blood Venous blood specimen / Unknown Venipuncture / Unknown 10/12/2024 1:53 PM EDT 10/12/2024 1:53 PM EDT Osvaldo BRIGGS LAB BLOOD ORDERABLES Lillian l Result [facility] [address] [place] [address], [place] [phone] * (ABNORMAL) Comprehensive metabolic panel (10/12/2024 1:53 PM EDT) Sodium 138 133 - 145 mmol/L LAB CHEMISTRY METHOD 10/12/2024 6:40 PM [facility] Potassium 3.7 3.5 - 5.5 mmol/L LAB CHEMISTRY METHOD 10/12/2024 6:40 PM [facility] Chloride 104 96 - 110 mmol/L LAB CHEMISTRY METHOD 10/12/2024 6:40 PM [facility] CO2 25 21 - 32 mmol/L LAB CHEMISTRY METHOD 10/12/2024 6:40 PM [facility] Anion Gap 9 3 - 11 LAB CHEMISTRY METHOD 10/12/2024 6:40 PM [facility] Glucose 130(H) 70 - 100 mg/dL LAB CHEMISTRY METHOD 10/12/2024 6:40 PM [facility] BUN 17 5 - 25 mg/dL LAB CHEMISTRY METHOD 10/12/2024 6:40 PM [facility] Creatinine 0.87 0.70 - 1.30 mg/dL LAB CHEMISTRY METHOD 10/12/2024 6:40 PM [facility] eGFR 101 >=60 mL/min/1. 73m2 LAB CHEMISTRY METHOD 10/12/2024 6:40 PM [facility] Comment:Calculation based on the??Chronic Kidney Disease Epidemiology Collaboration (CKD-EPI) equation refit??without adjustment for race. BUN/Creatinine Ratio 19.5 LAB CHEMISTRY METHOD 10/12/2024 6:40 PM [facility] Calcium 9.7 8.5 - 10.5 mg/dL LAB CHEMISTRY METHOD 10/12/2024 6:40 PM [facility] AST (SGOT) 33 10 - 42 unit/L LAB CHEMISTRY METHOD 10/12/2024 6:40 PM [facility] ALT (SGPT) 63(H) 10 - 60 unit/L LAB CHEMISTRY METHOD 10/12/2024 6:40 PM [facility] Alkaline Phosphatase 86 42 - 121 unit/L LAB CHEMISTRY METHOD 10/12/2024 6:40 PM EDT [facility] Total Protein 7.6 6.0 - 8.0 g/dL LAB CHEMISTRY METHOD 10/12/2024 6:40 PM EDT [facility] Albumin 4.5 3.2 - 5.0 g/dL LAB CHEMISTRY METHOD 10/12/2024 6:40 PM EDT [facility] Total Bilirubin 0.5 0.0 - 1.4 mg/dL LAB CHEMISTRY METHOD 10/12/2024 6:40 PM EDT [facility] Blood Venous blood specimen / Unknown Venipuncture / Unknown 10/12/2024 1:53 PM EDT 10/12/2024 1:53 PM EDT us Osvaldo BRIGGS LAB BLOOD ORDERABLES Lillian benitez Result [facility] [address] [place] [address], * COLONOSCOPY Anesthesia - MAC; [facility] ENDOSCOPY (05/24/2024 7:55 AM EST) Anatomical Region Laterality Modality Endoscopy 05/24/2024 7:36 AM EST Narrative 05/24/2024 7:54 AM EST [facility] GI Patient Name: Hema Levin ?Procedure Date: 05/24/2024 7:36 AM ? Date of : 1970 ? Age: 54 Room: ROOM 16 ? Gender: Male Note Status: Finalized ?Attending MD: Love Godwin DO, [id number] Procedure Date No Time: 05/24/2024 ? Procedure: ? Colonoscopy Indications: ? High risk colon cancer surveillance: Personal history ? of colonic polyps Providers: ? Love Godwin DO Referring MD: ?Love Godwin, DO Medicines: ? Monitored Anesthesia Care Complications: ? No immediate complications. Estimated blood loss: ? Minimal. Estimated Blood Loss: ? Estimated blood loss was minimal. Procedure: ? Pre-Anesthesia Assessment: ? - - Prior to the procedure, a History and Physical was ? performed, and patient medications and allergies were ? reviewed. The patient is competent. The risks and ? benefits of the procedure and the sedation options and ? risks were discussed with the patient. All questions ? were answered and informed consent was obtained. ? Patient identification and proposed procedure were ? verified by the physician, the nurse, the ? anesthesiologist, the pecan mallow dipper and the injection mold technician ? in the pre-procedure area in the endoscopy suite. ? Mental Status Examination: alert and oriented. Airway ? Examination: normal oropharyngeal airway and neck ? mobility. Respiratory Examination: clear to ? auscultation. CV Examination: normal. Prophylactic ? Antibiotics: The patient does not require prophylactic ? antibiotics. Prior Anticoagulants: The patient has ? taken no anticoagulant or antiplatelet agents. ASA ? Grade Assessment: II - A patient with severe systemic ? disease. After reviewing the risks and benefits, the ? patient was deemed in satisfactory condition to ? undergo the procedure. The anesthesia plan was to use ? monitored anesthesia care (MAC). Immediately prior to ? administration of medications, the patient was ? re-assessed for adequacy to receive sedatives. The ? heart rate, respiratory rate, oxygen saturations, ? blood pressure, adequacy of pulmonary ventilation, and ? response to care were monitored throughout the ? procedure. The physical status of the patient was ? re-assessed after the procedure. ? After I obtained informed consent, the scope was ? passed under direct vision. Throughout the procedure, ? the patient's blood pressure, pulse, and oxygen ? saturations were monitored continuously. The ? Colonoscope was introduced through the anus and ? advanced to the cecum, identified by appendiceal ? orifice and ileocecal valve. The colonoscopy was ? performed without difficulty. The patient tolerated ? the procedure well. The quality of the bowel ? preparation was good. Findings: ?Hemorrhoids were found on perianal exam. ? A 7 mm polyp was found in the transverse colon. The ? polyp was sessile. The polyp was removed with a cold ? snare. Resection and retrieval were complete. ? Estimated blood loss was minimal. ? A few small-mouthed diverticula were found in the ? sigmoid colon and descending colon. There was no ? evidence of diverticular bleeding. Estimated blood ? loss was minimal. ? The exam was otherwise without abnormality on direct ? and retroflexion views. Impression: ?- Hemorrhoids found on perianal exam. ? - One 7 mm polyp in the transverse colon, removed with ? a cold snare. Resected and retrieved. ? - The examination was otherwise normal on direct and ? retroflexion views. Recommendation: ?- - Discharge patient to home. ? - High fiber diet. ? - Continue present medications. ? - Await pathology results. ? - Repeat colonoscopy for surveillance based on ? pathology results. Procedure Code(s): ? --- Professional --- ? 09974, Colonoscopy, flexible; with removal of ? tumor(s), polyp(s), or other lesion(s) by snare ? technique Diagnosis Code(s): ? --- Professional --- ? Z86.010, Personal history of colonic polyps ? K64.9, Unspecified hemorrhoids ? D12.3, Benign neoplasm of transverse colon (hepatic ? flexure or splenic flexure) CPT copyright 2020 [employer]. All rights reserved. The codes documented in this report are preliminary and upon professional fee coder review may be revised to meet current compliance requirements. LOVE GODWIN Love Godwin DO 05/24/2024 7:54:39 AM This report has been signed electronically.Love Godwin DO Number of Addenda: 0 Note Initiated On: 05/24/2024 7:36 AM Scope Withdrawal Time: 0 hours 6 minutes 57 seconds Scope In: 7:43:53 AM Scope Out: 7:52:27 AM ? Endoscopy Department at [facility] - [address] [place] [address], ? [place] [address] Procedure Note Love Godwin DO - 05/24/2024 [facility] GI Patient Name: Hema Levin Procedure Date: 05/24/2024 7:36 AM Date of : 1970 Age: 54 Room: ROOM 16 Gender: Male Note Status: Finalized Attending MD: Love Godwin DO,[id number] Procedure Date No Time: 05/24/2024 Procedure: Colonoscopy Indications: High risk colon cancer surveillance: Personalhistory of colonic polyps Providers: Love Godwin DO Referring MD: Love Godwin DO Medicines: Monitored Anesthesia Care Complications: No immediate complications. Estimated blood loss: Minimal. Estimated Blood Loss: Estimated blood loss was minimal. Procedure: Pre-Anesthesia Assessment: - - Prior to the procedure, a History and Physicalwas performed, and patient medications and allergieswere reviewed. The patient is competent. The risks and benefits of the procedure and the sedation optionsand risks were discussed with the patient. Allquestions were answered and informed consent was obtained. Patient identification and proposed procedure were verified by the physician, the nurse, the anesthesiologist, the pecan mallow dipper and thetechnician in the pre-procedure area in the endoscopy suite. Mental Status Examination: alert and oriented.Airway Examination: normal oropharyngeal airway and neck mobility. Respiratory Examination: clear to auscultation. CV Examination: normal. Prophylactic Antibiotics: The patient does not requireprophylactic antibiotics. Prior Anticoagulants: The patient has taken no anticoagulant or antiplatelet agents. ASA Grade Assessment: II - A patient with severesystemic disease. After reviewing the risks and benefits,the patient was deemed in satisfactory condition to undergo the procedure. The anesthesia plan was touse monitored anesthesia care (MAC). Immediately priorto administration of medications, the patient was re-assessed for adequacy to receive sedatives. The heart rate, respiratory rate, oxygen saturations, blood pressure, adequacy of pulmonary ventilation,and response to care were monitored throughout the procedure. The physical status of the patient was re-assessed after the procedure. After I obtained informed consent, the scope was passed under direct vision. Throughout theprocedure, the patient's blood pressure, pulse, and oxygen saturations were monitored continuously. The Colonoscope was introduced through the anus and advanced to the cecum, identified by appendiceal orifice and ileocecal valve. The colonoscopy was performed without difficulty. The patient tolerated the procedure well. The quality of the bowel preparation was good. Findings: Hemorrhoids were found on perianal exam. A 7 mm polyp was found in the transverse colon. The polyp was sessile. The polyp was removed with acold snare. Resection and retrieval were complete. Estimated blood loss was minimal. A few small-mouthed diverticula were found in the sigmoid colon and descending colon. There was no evidence of diverticular bleeding. Estimated blood loss was minimal. The exam was otherwise without abnormality ondirect and retroflexion views. Impression: - Hemorrhoids found on perianal exam. - One 7 mm polyp in the transverse colon, removedwith a cold snare. Resected and retrieved. - The examination was otherwise normal on directand retroflexion views. Recommendation: - - Discharge patient to home. - High fiber diet. - Continue present medications. - Await pathology results. - Repeat colonoscopy for surveillance based on pathology results. Procedure Code(s): --- Professional --- 61633, Colonoscopy, flexible; with removal of tumor(s), polyp(s), or other lesion(s) by snare technique Diagnosis Code(s): --- Professional --- Z86.010, Personal history of colonic polyps K64.9, Unspecified hemorrhoids D12.3, Benign neoplasm of transverse colon (hepatic flexure or splenic flexure) CPT copyright 2020 [employer]. All rights reserved. The codes documented in this report are preliminary and upon professional fee coder reviewmay be revised to meet current compliance requirements. LOVE GODWIN Love Godwin DO 05/24/2024 7:54:39 AM This report has been signed electronically.Love Godwin DO Number of Addenda: 0 Note Initiated On: 05/24/2024 7:36 AM Scope Withdrawal Time: 0 hours 6 minutes 57 seconds Scope In: 7:43:53 AM Scope Out: 7:52:27 AM Endoscopy Department at [address] [address] Love Godwin DO GI~PROCEDURE ORDERABLES Final Re sult * Hepatitis C Screening (12/16/2022) Hepatitis C Screening abstracted Historical Provider HEALTH MAINTENANCE Final Result from Last 3 Months or Most Recently Relevant to Health Maintenance Insurance [facility] Care Teams Paper Machine Back Tender Relationship Specialty Start Date End Date Osvaldo Reno PA [address] [place] [id number] PCP - General Internal Medicine 05/21/24
== END 2024-11-16 08:23 | disposition home or self-care (01) ==
LOC: HO.US 08:22
PROVIDERS: PCP Physician Assistant Medical; Visit Provider Urology
DX: N20.0 Calculus of kidney (principal)
CPT/HCPCS: 76775

== ENCOUNTER → 2024-11-16 08:25 | Outpatient (BNV) | payer BC, SELFPAY | PROVIDERS: PCP Physician Assistant Medical; Visit Provider Radiology Diagnostic Radiology | DX: N28.1 Cyst of kidney, acquired (principal) | CPT/HCPCS: 76775 ==

== ENCOUNTER → 2024-12-15 08:55 | Outpatient (BNVA) | payer OTHER, SELFPAY | PROVIDERS: PCP Physician Assistant Medical; Visit Provider Physician Assistant | DX: R42 Dizziness and giddiness (principal); F07.81 Postconcussional syndrome | CPT/HCPCS: 99213 ==

== ENCOUNTER 2024-12-22 15:21 | Outpatient (AMB) | payer BC, SELFPAY ==
--- NOTE | 2024-12-22 15:23 | A.OFFVIS_ITS ---
Intake Visit Reasons: follow up US Intake Note: Patient is present for US F/U Urology Medication:VITAMIN B6,VITAMIN B2,TAMSULOSIN,FINASTERIDE Antibiotic Allergy:NONE Blood Thinner:ASPIRIN Adult Education Manager Required: No Allergies No Known Allergies [No Known Allergies*] Allergy (Verified 12/22/24 15:26) HPI Comments Details: Hema Is a pleasant male. He is a patient of Dr. Reno. He seen for the following urologic conditions - nephrolithiasis Twelve month surveillance No stones seen Continue vitamin B6 and fluids Imaging surveillance 12 months for 4 years Nephrolithiasis Recent intervention for right distal ureteric stone Intervention - 08/05 right ureteroscopy for distal stone Laboratories - 08/05 Ca 9.4 Imaging - 08/05 CT scan 7 mm distal right ureteric stone - 11/04 renal ultrasound no stones seen - 12/05 renal ultrasound no stones Stone composition - 08/05 calcium monohydrate 80% Therapeutic plan - vitamin B6 - fluids - interval surveillance Used to work for the [employer] Medical History Hypercholesteremia Hypertension Asthma Family History Father Prostate CA History of heart attack Mother Arthritis Diabetes Brother History of heart attack Social History Household Members: None Housing: House Do you presently have visiting nurse or other home services: No Patient Tobacco Use Status: Never used Tobacco service: No Current occupational status: employed Review of Systems Const Denies chills and Denies fever(s) Card Reports no additional complaints and Denies syncope Resp Denies cough GI Denies abdominal pain and Denies heartburn Reports as per HPI and Denies change in libido Neuro Denies syncope Psych Denies change in libido Endo Denies change in libido Physical Exam Const General: cooperative, healthy appearing, comfortable and no acute distress Orientation/consciousness: patient oriented x3 HEENT Face and sinus: Yes normal facial exam Mouth: moist mucous membranes Neck Neck: Yes normal visual inspection, Yes full ROM and Yes trachea midline Chest Chest palpation & inspection: normal inspection of the chest Resp Effort & Inspection: normal respiratory effort, able to speak in complete sentences and no respiratory distress GI Inspection: Yes normal to inspection Back/Spine/Pelvis Cervical Spine: normal cervical lordosis Thoracic/Lumbar Spine: thoracic and lumbar spine normal to inspection Skin General skin exam: no rashes or lesions noted Neuro General: patient oriented x3, gait normal, tone normal and moves all extremities Extrem General: Yes normal to inspection and Yes capillary refill normal Assessment & Plan Assessment & Plan (1) Calculus of kidney: Code(s): N20.0 - Calculus of kidney Category: Medical Plan Twelve month follow-up renal ultrasound and PSA Orders: Orders US renal BI 12 Months N20.0 - Calculus of kidney Prostate Specific Antigen 12 Months N20.0 - Calculus of kidney Patient Instructions: This note is constructed using voice recognition software. While every effort has been made to ensure accuracy mirror maker errors may have been included. Imaging studies, laboratory and physical exam results were discussed and reviewed in detail. No major barriers to patient understanding were identified. An opportunity to ask questions regarding the treatment plan was provided. All questions were answered. The patient expressed understanding and agreement with the above treatment plan. The patient is aware they should contact our office by phone for worsening of their current condition or the appearance of new urologic symptoms. Compliance is encouraged with any medications and followup testing that is ordered. It is a privilege to participate in the urologic care of your patient. If you have any questions or concerns regarding treatment for the above conditions, or other urologic issues, please do not hesitate to contact me. The office telephone contact is [phone]. Sincerely, Dr Sathish Corbin MD, [facility] - Urology Compassionate Specialist Care for the Genitourinary System Coding Level of Care Code Est Pt Level 4 (76812) Diagnoses Calculus of kidney N20.0
--- OUTSIDE RECORDS SUMMARY | 2024-12-22 17:44 | XMS_ITS | Encounter Summary ---
Author Organization [facility] Address [address] [place] [address] Care Team Providers Care Leather Stripping Machine Operator Name Role Phone Osvaldo Reno Primary Care Provider [phone] Reason for Referral * Consultation (Routine) - Closed Specialty Diagnoses / Procedures Referred By Contradha t Referred To Contact Urology Diagnoses Calculus of kidney Osvaldo Reno PA [address] [place] [address] Phone: tel: fax: Sathish Corbin MD [address] [place] [address] [place] [address] Phone: tel: fax: Referral ID Status Reason Start Date Expiration Date V isits Requested Visits Authorized [id number] Closed Specialty Services Required 12/07/2024 12/07/2025 10 10 Reason for Visit * Reason Onset Date Comments Referral 12/03/2024 Urology Insuranc e Referral Encounter Details Date Type Department Care Team (Late st Contact Info) Description 12/03/2024 Telephone Adult Medicine [facility] [address] [place] [address] Osvaldo Reno PA [address] [place] [address] Referral (Urology Insurance Referral) Social History Tobacco Use Types Packs/Day Years Used Date Smoking Tobacco: Never Smokeless Tobacco: Never Alcohol Use Standard Drinks/Week Comments No 0 [...] Orientation Straight 05/21/2024 2: 05 PM EST documented as of this encounter Progress Notes * Shahnaz Alexandra - 12/03/2024 3:29 PM EDT What insurance does the patient have today? Payor: @[email or web address]/@[email or web address] Referrals cannot be processed if the insurance is not accurate. If the insurance listed above is NO BILLING INFORMATION FOUND FOR THIS ENCOUNTER then the patients correct insurance must be obtainedand registered in [facility] or their referral can not be processed. Name of person calling to request this referral? Fax - [facility] Urology Referred To Provider (Include first and last name): Sathish Corbin NPI (if known): [phone] Order/Specialty requested urology Chief Complaint (Note: This is not a body part or a procedure): N20.0 calculus of kidney Has the patient seen provider for this problem/Dx before? Referred To Provider Address: Referred To Provider Referred To Provider Does patient have an appointment scheduled?: yes If yes, what is the date of the appointment?: 12/22/24 Is this a retro request? no Number of visits requested: 10 Is this appointment related to: MVA or worker compensation? no documented in this encounter Plan of Treatment Upcoming Encounters Date Type Department Care Team (Late st Contact Info) Description 03/15/2025 2:00 PM EDT Office Visit Bariatric Surgery - [address] [address] Zee Cedillo PA [address] [address] 03/18/2025 3:00 PM EDT Office Visit Adult Medicine [facility] [address] [place] [address] Osvaldo Reno PA [address] [place] [address] Scheduled Referrals Name Type Priority Associated Diagnoses Order Schedule Ambulatory referral to Urology Outpatient Referral Routine Calculus of kidney Expected: 12/03/2024, Expires: 12/03/2025 documented as of this encounter Visit Diagnoses Diagnosis Calculus of kidney- Primary documented in this encounter Care Teams Leather Stripping Machine Operator Relationship Specialty Start Date End Date Osvaldo Reno PA [address] [place] [id number] PCP - General Internal Medicine 05/21/24 documented as of this encounter
== END 2024-12-22 16:25 | disposition home or self-care (01) ==
LOC: HO.HUSH 15:22
PROVIDERS: PCP Physician Assistant Medical; Visit Provider Urology
DX: N20.0 Calculus of kidney (principal)
CPT/HCPCS: 99214

== ENCOUNTER 2024-12-24 11:40 | Outpatient (AMB) | payer BC, SELFPAY ==
--- NOTE | 2024-12-24 11:35 | MHC.OFFVIS ---
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 Required: No Accompanied by: Self / Same As Patient Allergies No Known Allergies [No Known Allergies*] Allergy (Verified 12/24/24 11:36) Medication List - Last Reconciled 12/24/24 by EDEN Gonzalez albuterol sulfate 90 mcg/actuation 2 puffs inhalation QID PRN amoxicillin-pot clavulanate 875-125 mg 1 tab PO BID 10 days aspirin 81 mg PO DAILY atorvastatin 1 tab PO BEDTIME azelastine 2 sprays intranasal BID 30 days benzonatate 200 mg PO BID PRN cyclobenzaprine 10 mg PO BEDTIME PRN finasteride 5 mg PO DAILY fluticasone propionate 110 mcg/actuation (Flovent HFA) 1 puff inhalation BID PRN hydrochlorothiazide 1 tab PO DAILY lisinopril 1 tab PO BEDTIME magnesium oxide 400 mg PO BEDTIME meclizine 25 mg PO BID PRN multivitamin 1 tab PO DAILY pyridoxine (vitamin B6) 50 mg PO DAILY 90 days riboflavin (vitamin B2) 400 mg PO DAILY 30 days scopolamine base 1 patch transdermal Q72H PRN tamsulosin 1 cap PO BEDTIME tirzepatide (Mounjaro) 2.5 mg subcut QWEEK HPI Comments Details: 54-yr-old male presents for f/u telephone visit for f/u of work-related postconcussive syndrome. Visit was conducted via telephone as patient was unable to utilize [employer] technology today. He continues to have episodes of room spinning vertigo/lightheadedness, when he stands up from bending over or being on his knees or is pulled from one activity to another. He reports his BP is normally normotensive. He takes a 64oz of lemon water a day plus additional glasses of water w/ meds etc. Occasionally takes gatorade. He recently started Mounjaro- for diabetes management. He is still on work restrictions- frequent breaks, and can leave work early if needed- though has not needed to recently. 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 He wonders if he needs to have a letter to support him in case he does not tolerate it. He reports his cognitive difficulties are better, but occasionally still has episodes of brain fog, and needs to think longer and focus more than he used to. Sometimes after doing something, he will look back and wonder why he did something the way he did. Pt notes he had EVENT SPECIALIST PRODUCT DEMONSTRATOR eval & tx- was advised to have 10 tx sessions, however this was only just approved and only for 4 sessions. Pt states he has not been able to do PT- d/t work comp coverage. Allergies and sinus pressure can still exacerbate the dizziness, headaches, and blurred vision. He does have a h/o sinus headaches but these are worse since the accident.. He has been using Mucinex nasal spray, lemon teas. He did try the Azelastine, but found the Mucinex to be more effective. PCP is referring him to ENT- but appt keeps getting cancelled/rescheduled. He is noticing snoring, not sleeping well, unrefreshing sleep, and needing to take naps after work now. [facility] Medical History Hypercholesteremia Hypertension Asthma Family History Father Prostate CA History of heart attack Mother Arthritis Diabetes Brother History of heart attack Social History Household Members: None Housing: House Do you presently have visiting nurse or other home services: No Patient Tobacco Use Status: Never used Tobacco service: No Current occupational status: employed Telehealth Telehealth Telehealth Platform: Telephone Location of provider rendering services: practice address Location of patient: address on file Patient Identification confirmed using: Name, : Yes Telehealth method: voice only Patient verbally consented to treatment: Yes Patient verbally consented to billing insurance company: Yes Patient informed of any privacy concerns related to visit: Yes Minutes spent on Phone/Video with Pt.: 30 Assessment & Plan Assessment & Plan (1) Postconcussive syndrome: Code(s): F07.81 - Postconcussional syndrome Category: Medical (2) Snoring: Code(s): R06.83 - Snoring Category: Medical (3) Fatigue: Code(s): R53.83 - Other fatigue Category: Medical Qualifiers: Fatigue type: other Qualified Code(s): R53.83 - Other fatigue (4) Cognitive dysfunction: Code(s): F09 - Unspecified mental disorder due to known physiological condition Category: Medical (5) Dizziness: Code(s): R42 - Dizziness and giddiness Category: Medical (6) Nasal septal deviation: Comment: December 2023 Brain MRI w/o: There is leftward deviation of the posterior nasal septum with no spurring. Large rosalio bullosa in the right middle turbinate. Code(s): J34.2 - Deviated nasal septum Category: Medical Plan Pt's postconcussive syndrome s/s do appear to be improving over time, however he does still have bothersome cognitive, dizziness, and headache s/s. I would expect these to continue to improve, which can take months to years to return to baseline and there is risk that this may never fully resolve. Pt does have a h/o migraine, which does raise the risk of having prolonged or longer postconcussive syndrome symptoms. For postconcussive dizziness/lightheadedness: May continue Mucinex nasal spray. Discontinue Azelastine nsal spray 2 sprays bid- not as effective as the Mucinex treatment. Continue lemon tea, cough drops. Trial adding 1 serving of electrolyte replacement beverage, such as Gatorade/Powerade/liquid IV per day- to reduce risk for orthostatic lightheadedness symptoms. Concur w/ ENT referral- as patient has been rescheduled again for the local ENT office, discussed that there are no other local comprehensive ENT clinics in the area, however there is an ENT center in [place] as well as in [place]. Shared the information for the [place] [facility]. Patient will call them to see if they accept his insurance if so, we would be happy to initiate a referral, as improving his sleep and ENT symptoms would likely improve his postconcussive syndrome symptom burden Patient advised to undergo HST to assess for sleep apnea d/t snoring, fatigue, daytime sleepiness, and brain MRI report showing leftward deviation of the posterior nasal septum with no spurring. Large rosalio bullosa in the right middle turbinate. Patient aware this will be process through his usual [facility] health insurance. ? For postconcussive cognitive dysfunction: Continue EVENT SPECIALIST PRODUCT DEMONSTRATOR cognitive strategies. For postconcussive headache prevention: Continue OTC Riboflaviun 400 mg daily in a.m. Continue OTC Magnesium 400mg qhs. May use Advil 400-600mg q 4-6 hrs prn. He has not tried any prescription prevention or acute tx yet. Continue restricted work through f/u. Will follow-up upon review of above and patient to follow-up in clinic in 3-4 months or sooner prn. ? Orders: Orders RT home sleep study Today J34.2 - Deviated nasal septum, R06.83 - Snoring, R53.83 - Other fatigue Medications: Refilled riboflavin (vitamin B2) 400 mg PO DAILY 30 days 30 tabs 6RF Coding Level of Care Code Tele Est Pt Level 4 (99703) Diagnoses Postconcussive syndrome F07.81 Snoring R06.83 Other fatigue R53.83 Fatigue type: other Cognitive dysfunction F09 Dizziness R42 Nasal septal deviation J34.2
--- OUTSIDE RECORDS SUMMARY | 2024-12-24 12:38 | XMS_ITS | Encounter Summary ---
Author Organization [facility] Address [address] [place] [address] Care Team Providers Care Traffic Controller Cable Name Role Phone Osvaldo Reno Primary Care Provider [phone] Reason for Referral * Consultation (Routine) - Closed Specialty Diagnoses / Procedures Referred By Contradha t Referred To Contact Urology Diagnoses Calculus of kidney Osvaldo Reno PA [address] [place] [address] Phone: tel: fax: Sathish Corbin MD [address] [place] [address] [place] [address] Phone: tel: fax: Referral ID Status Reason Start Date Expiration Date V isits Requested Visits Authorized [id number] Closed Specialty Services Required 12/07/2024 12/07/2025 10 10 Reason for Visit * Reason Onset Date Comments Referral 12/03/2024 Urology Insuranc e Referral Encounter Details Date Type Department Care Team (Late st Contact Info) Description 12/03/[address] [facility] [address] [place] [address] Osvaldo Reno PA [address] [place] [address] Referral (Urology Insurance Referral) Social History Tobacco [...] correct insurance must be obtainedand registered in [facility] or their referral can not be processed. Name of person calling to request this referral? Fax - [facility] Urology Referred To Provider (Include first and last name): Sathish Corbin NPI (if known): [id number] Order/Specialty requested urology Chief Complaint (Note: This [...] PM EDT Office Visit Bariatric Surgery - [address] [address] Zee Cedillo PA [address] [address] 03/18/2025 3:00 PM EDT Office Visit Adult Medicine [facility] [address] [place] [address] Osvaldo Reno PA [address] [place] [address] Scheduled Referrals Name Type Priority Associated Diagnoses Order Schedule Ambulatory referral to Urology Outpatient Referral Routine Calculus of kidney Expected: 12/03/2024, Expires: 12/03/2025 documented as of this encounter Visit Diagnoses Diagnosis Calculus of kidney- Primary documented in this encounter Care Teams Traffic Controller Cable Relationship Specialty Start Date End Date Osvaldo Reno PA [address] [place] [address] PCP - General Internal Medicine 05/21/24 documented as of this encounter
== END 2024-12-24 13:49 | disposition home or self-care (01) ==
PROVIDERS: PCP Physician Assistant Medical; Visit Provider Nurse Practitioner Family
DX: R53.83 Other fatigue (principal); R06.83 Snoring; F07.81 Postconcussional syndrome; R41.89 Other symptoms and signs involving cognitive functions and awareness; R42 Dizziness and giddiness; J34.2 Deviated nasal septum
CPT/HCPCS: 99214

== ENCOUNTER → 2024-12-24 11:40 | Outpatient (BNVA) | payer BC, SELFPAY | PROVIDERS: PCP Physician Assistant Medical; Visit Provider Nurse Practitioner Family ==

== ENCOUNTER → 2025-03-16 09:31 | Outpatient (BNVA) | payer OTHER, SELFPAY | PROVIDERS: PCP Physician Assistant Medical; Visit Provider Physician Assistant | DX: R42 Dizziness and giddiness (principal); F07.81 Postconcussional syndrome; Z87.820 Personal history of traumatic brain injury | CPT/HCPCS: 99213 ==

== ENCOUNTER → 2025-04-13 13:11 | Outpatient (BNVA) | payer OTHER, SELFPAY | PROVIDERS: PCP Physician Assistant Medical; Visit Provider Physician Assistant | DX: S01.91XD Laceration without foreign body of unspecified part of head, subsequent encounter (principal); W22.8XXD Striking against or struck by other objects, subsequent encounter; R42 Dizziness and giddiness; S05.10XD Contusion of eyeball and orbital tissues, unspecified eye, subsequent encounter | CPT/HCPCS: 99213 ==

== ENCOUNTER → 2025-05-25 08:59 | Outpatient (BNVA) | payer OTHER, SELFPAY | PROVIDERS: PCP Physician Assistant Medical; Visit Provider Physician Assistant | DX: S01.81XD Laceration without foreign body of other part of head, subsequent encounter (principal); W22.8XXD Striking against or struck by other objects, subsequent encounter | CPT/HCPCS: 99213 ==

== ENCOUNTER 2025-06-30 15:04 | Outpatient (AMB) | payer OTHER, SELFPAY ==
--- NOTE | 2025-06-30 16:05 | A.OFFVIS_ITS ---
Intake Visit Reasons: f/u Therapy Coordinator Required: No Accompanied by: Self / Same As Patient Allergies No Known Allergies (No Known Allergies*) Allergy (Verified 12/24/24 11:36) Medication List - Last Reconciled 06/30/25 by EDEN Gonzalez albuterol sulfate 90 mcg/actuation 2 puffs inhalation QID PRN amoxicillin-pot clavulanate 875-125 mg 1 tab PO BID 10 days aspirin 81 mg PO DAILY atorvastatin 1 tab PO BEDTIME azelastine 2 sprays intranasal BID 30 days benzonatate 200 mg PO BID PRN cyclobenzaprine 10 mg PO BEDTIME PRN finasteride 5 mg PO DAILY fluticasone propionate 110 mcg/actuation (Flovent HFA) 1 puff inhalation BID PRN hydrochlorothiazide 1 tab PO DAILY lisinopril 1 tab PO BEDTIME magnesium oxide 400 mg PO BEDTIME meclizine 25 mg PO BID PRN multivitamin 1 tab PO DAILY pyridoxine (vitamin B6) 50 mg PO DAILY 90 days riboflavin (vitamin B2) 400 mg PO DAILY 30 days scopolamine base 1 patch transdermal Q72H PRN tirzepatide (Mounjaro) 2.5 mg subcut QWEEK HPI Comments Details: 55-yr-old male presents for f/u telephone visit for f/u of work-related postconcussive syndrome. Visit was conducted via telephone as patient was unable to utilize [employer] technology today. He states that in Mar 2025, he was taken out of work for a week to address the updated workplace accommodation requests, which were similair to previous requests. 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 He may also ask for help or avoid ladders as needed. Since, he has returned to work, and notes that much of the increased workload and cognitive demands have passed as the project has progressed.. He states his episodes of room spinning vertigo/lightheadedness has been better. This is worse when he has a cold or URI s/s. He stopped b2 and mag- as they were not adding benefit. He reports his BP is normally normotensive. He takes a 64oz of lemon water a day plus additional glasses of water w/ meds etc. Occasionally takes gatorade. He reports his cognitive difficulties persist but occasionally still has episod es of brain fog, and needs to think longer and focus more than he used to. Sometimes after doing something, he will look back and wonder why he did something the way he did. He previously completed [employer] and vestibular tx. Allergies, nose bleeds, and sinus pressure can still exacerbate the dizziness, headaches, and blurred vision. He does have a h/o sinus headaches but these are worse since the accident.. He has been using Mucinex nasal spray, lemon teas. He previously did try the Azelastine, but found the Mucinex to be more effective. PCP is referring him to a new ENT- Dr Galvan. He is noticing worsening snoring, not sleeping well, unrefreshing sleep, and needing to take naps after work now. He has not had the ordered sleep study- has missed the calls to schedule d/t his phone issues beyond his control. [facility] Medical History Hypercholesteremia Hypertension Asthma Family History Father Prostate CA History of heart attack Mother Arthritis Diabetes Brother History of heart attack Social History Household Members: None Housing: House Do you presently have visiting nurse or other home services: No Patient Tobacco Use Status: Never used Tobacco service: No Current occupational status: employed Physical Exam Const General: cooperative and no acute distress Orientation/consciousness: patient oriented x3 Resp Effort & Inspection: normal respiratory effort and able to speak in complete sentences Neuro General: patient oriented x3 Cognition (Neuro): normal cognition Psych Mental Status: mental status grossly normal Attitude: cooperative Telehealth Telehealth Telehealth Platform: Telephone Location of provider rendering services: practice address Location of patient: address on file Patient Identification confirmed using: Name, : Yes Telehealth method: voice only Patient verbally consented to treatment: Yes Patient verbally consented to billing insurance company: Yes Patient informed of any privacy concerns related to visit: Yes Minutes spent on Phone/Video with Pt.: 30 Assessment & Plan Assessment & Plan (1) Postconcussive syndrome: Code(s): F07.81 - Postconcussional syndrome Category: Medical (2) Snoring: Code(s): R06.83 - Snoring Category: Medical (3) Fatigue: Code(s): R53.83 - Other fatigue Category: Medical Qualifiers: Fatigue type: other Qualified Code(s): R53.83 - Other fatigue (4) Cognitive dysfunction: Code(s): F09 - Unspecified mental disorder due to known physiological condition Category: Medical (5) Dizziness: Code(s): R42 - Dizziness and giddiness Category: Medical (6) Nasal septal deviation: Comment: December 2023 Brain MRI w/o: There is leftward deviation of the posterior nasal septum with no spurring. Large rosalio bullosa in the right middle turbinate. Code(s): J34.2 - Deviated nasal septum Category: Medical Plan Pt's postconcussive syndrome s/s continue to improve over time, however he does still have bothersome cognitive, dizziness, and headache s/s. I would expect these to continue to improve, which can take months to years to return to baseline and there is risk that this may never fully resolve. Pt does have a h/o migraine, which does raise the risk of having prolonged or longer postconcussive syndrome symptoms. For postconcussive dizziness/lightheadedness: May continue Mucinex nasal spray. May use Azelastine nsal spray 2 sprays bid prn Continue lemon tea, cough drops. Continue 1 serving of electrolyte replacement beverage, such as Gatorade/Powerade/liquid IV per day- to reduce risk for orthostatic lightheadedness symptoms. Concur w/ ENT referral We will follow-up on previous request for HST to assess for sleep apnea d/t snoring, fatigue, daytime sleepiness, and brain MRI report showing leftward deviation of the posterior nasal septum with no spurring. Large rosalio bullosa in the right middle turbinate. Patient is aware this will be process through his usual [facility] health insurance. * On follow-up, HST is scheduled for 08/18/2025 ? For postconcussive cognitive dysfunction: Continue [employer] cognitive strategies. For postconcussive headache prevention: Discontinue OTC Riboflaviun 400 mg daily in a.m. Discontinue OTC Magnesium 400mg qhs. May use Advil 400-600mg q 4-6 hrs prn. He has not tried any prescription prevention or acute tx yet. Continue establish reasonable work accommodations related to his workplace injury.. Will follow-up upon review of above and patient to follow-up in clinic in 6 months or sooner prn. ? Coding Level of Care Code Tele Est Pt Level 4 (19229) Diagnoses Postconcussive syndrome F07.81 Snoring R06.83 Other fatigue R53.83 Fatigue type: other Cognitive dysfunction F09 Dizziness R42 Nasal septal deviation J34.2
--- OUTSIDE RECORDS SUMMARY | 2025-06-30 19:09 | XMS_ITS | Clinical Summary ---
Author Organization [facility] Address [address] [place] [address] Phone Care Team Providers Care Garment Sewer Hand Name Role Phone Osvaldo Reno Primary Care Provider [phone] Allergies No known active allergies Medications aspirin 81 mg EC tablet Take 1 tablet (81 mg total) by mouth 1 (one) time each day. Active fluticasone HFA (FLOVENT HFA) 110 mcg/actuation inhaler Inhale 1 Puff into the lungs 2 times daily. 05/27/2022 Active pyridoxine (B-6) 100 mg tablet Take 1 tablet (100 mg total) by mouth 1 (one) time each day. 10/22/2022 Active MULTIVITAMIN ORAL 1 tab daily Active metFORMIN (GLUCOPHAGE) 500 mg tablet Take 1 tablet (500 mg total) by mouth 1 (one) time each day with breakfast. 30 each 11 10/15/2024 Active lisinopril-hydr oCHLOROthiazide (PRINZIDE,ZESTO RETIC) 10-12.5 mg per tablet TAKE 1 TABLET BY MOUTH EVERY DAY 90 tablet 1 01/03/2025 Active finasteride (PROSCAR) 5 mg tablet TAKE 1 TABLET BY MOUTH EVERY DAY 90 tablet 1 01/03/2025 Active benzonatate (TESSALON) 200 mg capsule Take 1 capsule (200 mg total) by mouth 3 (three) times a day if needed for cough. 90 capsule 1 03/18/2025 Active tirzepatide (Mounjaro) 5 mg/0.5 mL injectionIndica tions:Overweigh t (BMI 25.0-29.9) Inject 0.5 mL (5 mg total) under the skin every 7 (seven) days. 2 mL 05/20/2025 Active atorvastatin (LIPITOR) 20 mg tablet TAKE 1 TABLET BY MOUTH EVERY DAY 90 tablet 1 05/30/2025 Active Active Problems Problem Noted Date Diagnosed Date New onset type 2 diabetes mellitus 05/31/2024 Fatty liver 12/16/2022 Erectile dysfunction 11/25/2022 Nephrolithiasis 11/25/2022 Liver cyst 08/05/2014 AC (acromioclavicular) joint arthritis 1 Allergic rhinitis 03/21/2006 Overview (04/14/2024): Dr. Pandya Asthma 07/05/2005 Essential hypertension, benign 07/05/2005 Pure hypercholesterolemia 07/05/2005 Resolved Problems Problem Noted Date Diagnosed Date Resolved Date Class 1 obesity with body ma ss index (BMI) of 33.0 to 33.9 in adult 06/29/2024 03/15/2025 DNR (do not resuscitate) 05/26/2024 Encounters Date Type Department Care Team Description 05/09/2025 Telephone Bariatric Surgery [address] [address] Tj Zaragoza MD 04/12/2025 Telephone Bariatric Surgery [address] [address] Tj Zaragoza MD from Last 3 Months Immunizations Immunization Administration Dates Next Due Influenza Quadravalent, MDCK , 0.5ml, preservative free (Flucelvax) 6mo and older 04/02/2022,04/28/2018 Influenza Quadravalent, MDCK , 0.5ml, with preservative (Flucelvax) 6mo and older 04/05/2020,04/09/2019,04/09/2017 Influenza trivalent, with pr eservative (Fluzone; Afluria) 6mo and older 03/28/2016,03/22/2015 Influenza, Unspecified 04/10/2020,04/09/2019 Pneumococcal conjugate 20 va lent (Prevnar 20, PCV 20) 2mo and older 03/18/2025 Pneumococcal polysaccharide 23 valent (Pneumovax 23) 2yo [...] COLONOSCOPY 04/21/2019 PROCEDURE: HISTORICAL COLONOSCOPY; COMMENT: negative KIDNEY STONE SURGERY dr. kumar Medical History Medical History Date Comments Unspecified asthma(493.90) 07/05/2005 DX:Un specified asthma(493.90) Morbid obesity (CMS/HCC V24, CMS/HCC V28) 09/08/2006 DX:Morbid obesity ([facility]) Unspecified essential hypertension DX:Unspecified essential hypertension Essential [...] drink = 0.6 oz pur e alcohol) none Housing Instability Answer Date Recorde d Are you worried that in the next 2 months you may not have stable housing? No 02/24/2025 Food Access & Nutrition Answer Date Rec orded Do you have access to a vari ety of food including fruits and vegetables? Yes 02/24/2025 Health Literacy Answer Date Recorded How often do you need to hav e someone help you when you read instructions, pamphlets, or other written material from your doctor or pharmacy? Never 02/24/2025 Caregiver: How often do you need to have someone help you when you read instructions, pamphlets, or other written material from your doctor or pharmacy? Not on file 02/24/2025 Financial Risk Answer Date Recorded How hard is it for you to pa y for the very basics like food, housing, medical care, and air conditioning / heating? Not very hard 02/24/2025 Transportation Answer Date Recorded Has the lack of transportati on kept you from meetings, work, or from getting things needed for daily living? No Has the lack of transportati on kept you from medical appointments or from getting medications? No 02/24/2025 Social Isolation Answer Date Recorded How often do you feel lonely or isolated from th ose around you? Never 02/24/2025 Food Risk Answer Date Recorded Within the past 12 months we worried whether our food would run out before we got money to buy more. Never true 02/24/2025 Within the past 12 months th e food we bought just didn't last and we didn't have money to get more. Never true 02/24/2025 Dependent Care Answer Date Recorded Do you need help finding or paying for care for your loved ones. For example, child care cook or elderly care for an older adult? No 02/24/2025 Education Answer Date Recorded Do you think completing more education or training, like finishing a GED, going to college, or learning a trade, would be helpful for you? No 02/24/2025 Employment and Income Answer Date Recor ded During the last four weeks, have you been actively looking for work? No 02/24/2025 Living Situation Answer Date Recorded What is your living situation? Unrecognized valu e 02/24/2025 Interpersonal Safety Answer Date Record ed Physical Abuse Unrecognized value 05/24/2024 Verbal Abuse Unrecognized value 05/24/2024 Sex and Gender Information Value Date Recorded Sex Assigned at Male 05/21/2024 2:05 PM EST Legal Sex Male 5:18 AM EST Gender Identity Male 05/21/2024 2:05 PM EST Sexual Orientation Straight 05/21/2024 2: 05 PM EST Last Filed Vital Signs Vital Sign Reading Time Taken Comments Blood Pressure 119/72 03/18/2025 3:04 PM EDT Pulse 78 03/18/2025 3:04 PM EDT Temperature 36.1 C (97 F) 03/18/2025 3:04 PM EDT Respiratory Rate 16 03/18/2025 3:04 PM EDT Oxygen Saturation 97% 03/18/2025 3:04 PM EDT Inhaled Oxygen Concentration - - Weight 93.3 kg (205 lb 9.6 oz) 03/18/2025 3:04 P M EDT Height 180.3 cm (5' 11 ) 03/18/2025 3:04 PM EDT Body Mass Index 28.68 03/18/2025 3:04 PM EDT Plan of Treatment Upcoming Encounters Date Type Department Care Team (Late st Contact Info) Description 08/15/2025 2:15 PM EST Office Visit Bariatric Surgery [address] [place] [address] Zee Cedillo PA [address] [place] [phone] 09/19/2025 2:30 PM EDT Office Visit Adult Medicine [address] [phone] Osvaldo Reno PA [address] [place] [phone] Health Maintenance Due Date Last Done Comments Hepatitis B Vaccines (1 of 3 - 19+ 3-dose series) 02/16/1987 RSV Immunization Adult Patients (1 - Risk 50-74 years 1-dose series) 02/16/2018 COVID-19 Vaccine ( season) 2025 05/30/2021, 10/15/2020, 09/16/2020 Influenza Vaccine (#1) 2025 2, 04/10/2020, 04/05/2020, Additional history exists Diabetes: Blood Sugar Control Test (HGBA1C) 09/13/2025 03/16/2025, 10/12/2024, 05/25/2024, Additional history exists Diabetes: Annual Urine Albumin-Creatinine Ratio (uACR) 10/12/2025 10/12/2024 Social Influencers of Health Screening 02/24/2026 02/24/2025 Diabetes: Annual GFR (Glomerular Filtration Rate) 03/16/2026 03/16/2025, 10/12/2024, 11/24/2023, Additional history exists Hypertension/CHF/CAD Annual BMP Blood Test 03/16/2026 03/16/2025, 10/12/2024, 11/24/2023, Additional history exists DTaP,Tdap,and Td Vaccines (3 - Td or Tdap) 01/30/2028 01/29/2018, 12/29/2007 Colorectal Cancer Screening: Colonoscopy 05/24/2029 05/24/2024, 04/21/2019 Cholesterol Screening (Lipid Panel) 03/16/2030 03/16/2025, 10/12/2024, 11/24/2023, Additional history exists Hepatitis C Screening Completed 12/16/2022 Zoster Vaccines Completed 08/22/2023, 06/10/2023 HIV Screening Completed 10/12/2024 Depression Screening Completed 02/24/2025 Pneumococcal Vaccine: 50+ Years Completed 03/18/2025, 03/28/2016 Diabetes: Annual Foot Exam Discontinued Diabetes: Annual Retina Eye Exam Discontinued HIB Vaccines Aged Out No longer eligi ble based on patient's age to complete this topic HPV Vaccines Aged Out No longer eligi ble based on patient's age to complete this topic Hepatitis A Vaccines Aged Out No long er eligible based on patient's age to complete [...] Procedure Name Priority Date/Time Associated Diagnosis Comments COMPREHENSIVE METABOLIC PANEL Routine 03/16/2025 2:15 PM EDT New onset type 2 diabetes mellitus (CMS/HCC V24, CMS/HCC V28) Essential hypertension, benign Fatty liver Pure hypercholesterolemi a Class 1 obesity due to excess calories without serious comorbidity with body mass index (BMI) of 33.0 to 33.9 in adult HEMOGLOBIN A1C Routine 03/16/2025 2:15 PM EDT New onset type 2 diabetes mellitus (CMS/HCC V24, CMS/HCC V28) Essential hypertension, benign Fatty liver Pure hypercholesterolemi a Class 1 obesity due to excess calories without serious comorbidity with body mass index (BMI) of 33.0 to 33.9 in adult LIPID PANEL WITH REFLEX TO DIRECT LDL Routine 03/16/2025 2:15 PM EDT New onset type 2 diabetes mellitus (CMS/HCC V24, CMS/HCC V28) Essential hypertension, benign Fatty liver Pure hypercholesterolemi a Class 1 obesity due to excess calories without serious comorbidity with body mass index (BMI) of 33.0 to 33.9 in adult HIV 1, 2 ANTIBODY, P24 ANTIGEN WITH [...] Recently Relevant to Health Maintenance Results * (ABNORMAL) Lipid panel with reflex to direct LDL (03/16/2025 2:15 PM EDT) Pathologist [facility] Cholesterol 106 0 - 200 mg/dL LAB CHEMISTRY METHOD 03/16/2025 5:18 PM EDT [facility] Triglycerides 147 0 - 150 mg/dL LAB CHEMISTRY METHOD 03/16/2025 5:18 PM EDT [facility] HDL 26(L) >=40 mg/dL LAB CHEMISTRY METHOD 03/16/2025 5:18 PM EDT [facility] LDL Calculated 51 0 - 100 mg/dL LAB CHEMISTRY METHOD 03/16/2025 5:18 PM EDT [facility] Comment:Estimated LDL Calcul ated using equation: Total cholesterol - HDL cholesterol - (Triglycerides/5) VLDL Cholesterol Raffaele 29.4 mg/dL LAB CHEMISTRY METHOD 03/16/2025 5:18 PM EDT [facility] Non HDL Chol. (LDL+VLDL) 80 <145 mg/dL LAB CHEMISTRY METHOD 03/16/2025 5:18 PM EDT [facility] Chol/HDL Ratio 4.1 0.0 - 4.4 LAB CHEMISTRY METHOD 03/16/2025 5:18 PM EDT [facility] Blood Venous blood specimen / Unknown Venipuncture / Unknown 03/16/2025 2:15 PM EDT 03/16/2025 2:15 PM EDT us Osvaldo BRIGGS LAB BLOOD ORDERABLES Lillian benitez Result [facility] [address] [place] [address], * Hemoglobin A1c (03/16/2025 2:15 PM EDT) [facility] Hemoglobin A1C 5.4 <6.5 % LAB CHEMISTRY METHOD 03/16/2025 8:33 PM [facility] Mean Bld Glu Estim. 108 mg/dL LAB CHEMISTRY METHOD 03/16/2025 8:33 PM [facility] Blood Venous blood specimen / Unknown Venipuncture / Unknown 03/16/2025 2:15 PM EDT 03/16/2025 2:15 PM EDT Osvaldo BRIGGS LAB BLOOD ORDERABLES Lillian l Result [facility] [address] [place] [address], * (ABNORMAL) Comprehensive metabolic panel (03/16/2025 2:15 PM EDT) Sodium 134 133 - 145 mmol/L LAB CHEMISTRY METHOD 03/16/2025 5:22 PM [facility] Potassium 3.5 3.5 - 5.5 mmol/L LAB CHEMISTRY METHOD 03/16/2025 5:22 PM [facility] Chloride 102 96 - 110 mmol/L LAB CHEMISTRY METHOD 03/16/2025 5:22 PM [facility] CO2 26 21 - 32 mmol/L LAB CHEMISTRY METHOD 03/16/2025 5:22 PM [facility] Anion Gap 6 3 - 11 LAB CHEMISTRY METHOD 03/16/2025 5:22 PM [facility] Glucose 107(H) 70 - 100 mg/dL LAB CHEMISTRY METHOD 03/16/2025 5:22 PM [facility] BUN 12 5 - 25 mg/dL LAB CHEMISTRY METHOD 03/16/2025 5:22 PM [facility] Creatinine 0.82 0.70 - 1.30 mg/dL LAB CHEMISTRY METHOD 03/16/2025 5:22 PM [facility] eGFR 102 >=60 mL/min/1. 73m2 LAB CHEMISTRY METHOD 03/16/2025 5:22 PM T [facility] Comment:Calculation based on the Chronic Kidney Disease Epidemiology Collaboration (CKD-EPI) equation refit without adjustment for race. BUN/Creatinine Ratio 14.6 LAB CHEMISTRY METHOD 03/16/2025 5:22 PM [facility] Calcium 9.1 8.5 - 10.5 mg/dL LAB CHEMISTRY METHOD 03/16/2025 5:22 PM [facility] AST (SGOT) 43(H) 10 - 42 unit/L LAB CHEMISTRY METHOD 03/16/2025 5:22 PM [facility] ALT (SGPT) 56 10 - 60 unit/L LAB CHEMISTRY METHOD 03/16/2025 5:22 PM [facility] Alkaline Phosphatase 89 42 - 121 unit/L LAB CHEMISTRY METHOD 03/16/2025 5:22 PM [facility] Total Protein 7.4 6.0 - 8.0 g/dL LAB CHEMISTRY METHOD 03/16/2025 5:22 PM [facility] Albumin 4.0 3.2 - 5.0 g/dL LAB CHEMISTRY METHOD 03/16/2025 5:22 PM [facility] Total Bilirubin 1.0 0.0 - 1.4 mg/dL LAB CHEMISTRY METHOD 03/16/2025 5:22 PM [facility] Blood Venous blood specimen / Unknown Venipuncture / Unknown 03/16/2025 2:15 PM EDT 03/16/2025 2:15 PM EDT us Osvaldo BRIGGS LAB BLOOD ORDERABLES Lillian benitez Result [facility] [address] [place] [address], * HIV 1,2 antibody, p24 antigen with reflex to differentiation (10/12/2024 1:53 PM EDT) [facility] HIV Combo AB/AG Negative Negative LAB CHEMISTRY METHOD 10/12/2024 8:07 PM EDT [facility] Blood Venous blood specimen / Unknown Venipuncture / Unknown 10/12/2024 1:53 PM EDT 10/12/2024 1:53 PM EDT Narrative [facility] - 10/12/2024 8:07 PM EDT This assay is a 4th generation assay allowing for earlier detection of HIV infection by detecting the presence of the HIV-1 p24 antigen as well as the traditional antibodies to HIV type 1 (including group O) and type 2. Use of a 4th generation assay is the current CDC recommendation for HIV screening. Osvaldo BRIGGS LAB BLOOD ORDERABLES Lillian l Result [facility] [address] [place] [address], * (ABNORMAL) Microalbumin creatinine urine ratio (10/12/2024 1:53 PM EDT) [facility] Creatinine, Urine 128.0 mg/dL LAB CHEMISTRY METHOD 10/12/2024 7:37 PM EDT [facility] Microalb, Ur 59.7(H) 0.0 - 29.0 mg/L LAB CHEMISTRY METHOD 10/12/2024 7:37 PM EDT [facility] Microalb/Crea t Ratio 47(H) <30 mg/g creat LAB CHEMISTRY METHOD 10/12/2024 7:37 PM EDT [facility] Urine Urine specimen obtained by clean catch procedure / Unknown Non-blood Collection / Unknown 10/12/2024 1:53 PM EDT 10/12/2024 1:53 PM EDT Osvaldo BRIGGS LAB URINE ORDERABLES Lillian l Result [facility] [address] [place] [address], * COLONOSCOPY Anesthesia - MAC; [facility] ENDOSCOPY (05/24/2024 7:55 AM EST) Anatomical Region Laterality Modality Endoscopy 05/24/2024 7:36 AM EST Narrative 05/24/2024 7:54 AM EST [facility] Patient Name: Génesis Levin Procedure Date: 05/24/2024 7:36 AM Date of : 1970 Age: 54 Room: ROOM 16 Gender: Male Note Status: Finalized Attending MD: Love Godwin DO, [id number] Procedure Date No Time: 05/24/2024 Procedure: Colonoscopy Indications: High risk colon cancer surveillance: Personal history of colonic polyps Providers: Love Godwin DO Referring MD: Love Godwin DO Medicines: Monitored Anesthesia Care Complications: No immediate complications. Estimated blood loss: Minimal. Estimated Blood Loss: Estimated blood loss was minimal. Procedure: Pre-Anesthesia Assessment: - - Prior to the procedure, a History and Physical was performed, and patient medications and allergies were reviewed. The patient is competent. The risks and benefits of the procedure and the sedation options and risks were discussed with the patient. All questions were answered and informed consent was obtained. Patient identification and proposed procedure were verified by the physician, the nurse, the anesthesiologist, the morning nanny and the personnel technician in the pre-procedure area in the endoscopy suite. Mental Status Examination: alert and oriented. Airway Examination: normal oropharyngeal airway and neck mobility. Respiratory Examination: clear to auscultation. CV Examination: normal. Prophylactic Antibiotics: The patient does not require prophylactic antibiotics. Prior Anticoagulants: The patient has taken no anticoagulant or antiplatelet agents. ASA Grade Assessment: II - A patient with severe systemic disease. After reviewing the risks and benefits, the patient was deemed in satisfactory condition to undergo the procedure. The anesthesia plan was to use monitored anesthesia care (MAC). Immediately prior to administration of medications, the patient was re-assessed for adequacy to receive sedatives. The heart rate, respiratory rate, oxygen saturations, blood pressure, adequacy of pulmonary ventilation, and response to care were monitored throughout the procedure. The physical status of the patient was re-assessed after the procedure. After I obtained informed consent, the scope was passed under direct vision. Throughout the procedure, the patient's blood pressure, pulse, and oxygen [...] The polyp was removed with a cold snare. Resection and retrieval were complete. Estimated blood loss was minimal. A few small-mouthed diverticula were found in the sigmoid colon and descending colon. There was no evidence of diverticular bleeding. Estimated blood loss was minimal. The exam was otherwise without abnormality on direct and retroflexion views. Impression: - Hemorrhoids found on perianal exam. - One 7 mm polyp in the transverse colon, removed with a cold snare. Resected and retrieved. - The examination was otherwise normal on direct and retroflexion views. Recommendation: - - Discharge patient to home. - High fiber diet. - Continue present medications. - Await pathology results. - Repeat colonoscopy for surveillance based on pathology results. Procedure Code(s): --- Professional --- 63081, Colonoscopy, flexible; with removal of tumor(s), polyp(s), or other lesion(s) by snare technique Diagnosis Code(s): --- Professional --- Z86.010, Personal history of colonic polyps K64.9, Unspecified hemorrhoids D12.3, Benign neoplasm of transverse colon (hepatic flexure or splenic flexure) CPT copyright 2020 [employer]. All rights reserved. The codes documented in this report are preliminary and upon medical technologist clinical review may be revised to meet current compliance requirements. LOVE GODWIN Love Godwin DO 05/24/2024 7:54:39 AM This report has been signed electronically.Love Godwin DO Number of Addenda: 0 Note Initiated On: 05/24/2024 7:36 AM Scope Withdrawal Time: 0 hours 6 minutes 57 seconds Scope In: 7:43:53 AM Scope Out: 7:52:27 AM Endoscopy Department at [address] [phone] Procedure Note Love Godwin DO - 05/24/2024 [facility] GI Patient Name: Génesis Levin Procedure Date: 05/24/2024 7:36 AM Date of : 1970 Age: 54 Room: ROOM 16 Gender: Male Note Status: Finalized Attending MD: Love Godwin DO,[id number] Procedure Date No Time: 05/24/2024 Procedure: Colonoscopy Indications: High risk colon cancer surveillance: Personalhistory of colonic polyps Providers: Love Godwin DO Referring MD: Love Raffaele, DO Medicines: Monitored Anesthesia Care Complications: No [...] the physician, the nurse, the anesthesiologist, the morning nanny and thetechnician in the pre-procedure area in [...] pathology results. Procedure Code(s): --- Professional --- 98830, Colonoscopy, flexible; with removal of tumor(s), polyp(s), or other lesion(s) by snare technique Diagnosis Code(s): --- Professional --- Z86.010, Personal history of colonic polyps K64.9, Unspecified hemorrhoids D12.3, Benign neoplasm of transverse colon (hepatic flexure or splenic flexure) CPT copyright 2020 [employer]. All rights reserved. The codes documented in this report are preliminary and upon medical technologist clinical reviewmay be revised to meet current compliance requirements. LOVE GODWIN Love Godwin DO 05/24/2024 7:54:39 AM This report has been signed electronically.Love Godwin DO Number of Addenda: 0 Note Initiated On: 05/24/2024 7:36 AM Scope Withdrawal Time: 0 hours 6 minutes 57 seconds Scope In: 7:43:53 AM Scope Out: 7:52:27 AM Endoscopy Department at [address] [phone] Love Godwin DO GI~PROCEDURE ORDERABLES Final Re sult * Hepatitis C Screening (12/16/2022) Hepatitis C Screening abstracted Historical Provider HEALTH MAINTENANCE Final Result from Last 3 Months or Most Recently Relevant to Health Maintenance Insurance [facility] Care Teams Garment Sewer Hand Relationship Specialty Start Date End Date Osvaldo Reno PA [address] [place] [address] PCP - General Internal Medicine 05/21/24
--- OUTSIDE RECORDS SUMMARY | 2025-06-30 19:09 | XMS_ITS | Encounter Summary ---
Author Organization [facility] Address [address] [place] [address] Care Team Providers Care Mcat Instructor Name Role Phone Osvaldo Reno Primary Care Provider [phone] Reason for Visit * Reason Onset Date Comments Med Refill 05/09/2025 Mounjaro 5 mg Encounter Details Date Type Department Care Team ([facility] st Contact Info) Description 05/09/2025 Telephone Bariatric Surgery - [address] [place] [address] Tj Zaragoza MD [address] [place] [phone] Social History Tobacco Use Types Packs/Day Years [...] care for your loved ones. For example, childbirth and infant care teacher or elderly care for an older adult? [...] as of this encounter Progress Notes * Francisca Montoya - 05/16/2025 10:28 AM EST Patient is requesting refill on Mounjaro 5 mg - the 7.5 mg is too much. * Francisca Montoya - 05/09/2025 9:25 AM EDT Patient is requesting refill on Mounjaro 5mg - his last pen malfunctioned and is [facility]. documented in this encounter Plan of Treatment Upcoming Encounters Date Type Department Care Team (Late st Contact Info) Description 08/15/2025 2:15 PM EST Office Visit Bariatric Surgery - [place] [address] [facility] [address] [place] [phone] Zee Cedillo PA [address] [place] [phone] 09/19/2025 2:30 PM EDT Office Visit Adult Medicine [facility] [address] [place] [address] Osvaldo Reno PA [address] [place] [phone] documented as of this encounter Visit Diagnoses Not on filedocumented in this encounter Additional Health Concerns Assessment Noted Time PHQ-9 Depression Total Score: 0 02/25/20 25 12:36 PM EDT documented as of this encounter Care Teams Mcat Instructor Relationship Specialty Start Date End Date Osvaldo Reno PA [address] [place], [place] PCP - General Internal Medicine 05/21/24 documented as of this encounter
== END 2025-07-04 13:24 | disposition home or self-care (01) ==
LOC: HO.HSMS 15:04
PROVIDERS: PCP Physician Assistant Medical; Visit Provider Nurse Practitioner Family
DX: F07.81 Postconcussional syndrome (principal); R06.83 Snoring; R53.83 Other fatigue; R41.89 Other symptoms and signs involving cognitive functions and awareness; R42 Dizziness and giddiness; J34.2 Deviated nasal septum
CPT/HCPCS: 99214